=== PATIENT | female | born 1985 | race Caucasian/White ===

== ENCOUNTER 2024-06-05 17:17 | Inpatient (IN) ==
[2024-06-05] MEDS ORDERED: ONDANSETRON INJ 2 MG/ML 2 ML VIAL IV PRN (17:22)
[2024-06-05] MEDS ORDERED: ALUMINUM/MAGNESIUM SUSP 30 ML UDC PO PRN (17:22)
--- NOTE | 2024-06-05 17:36 | History & Physical Report ---
Date of Service June 05, 2024 Assessment & Plan (1) Ascites: Plan 38-year-old female admitted due to profound anemia and concern for cirrhosis with unexplained nodular changes in her peritoneum seen on CT scan and ascites. Recent endoscopy in December 2023 did not show esophageal varices but CT scan of the abdomen talks about abdominal varices and portal hypertension. With concern for vomiting blood most recently #Anemia concern for acute blood loss anemia from portal hypertension and possibly is variceal bleeding. Patient will be brought into our facility put on clear liquids kept n.p.o. after midnight placed on Protonix with a GI consult pending. Most recently her B12 and folic acid levels have been replete but her iron has been low. She received 2 units of leukocyte reduced irradiated blood in the medical treatment unit prior to admission posttransfusion hemoglobin has not been assessed. Patient is not kept n.p.o. for the possibility of an upper endoscopy but patient may need prep for lower #Hepatomegaly concern for ascites. Patient has a significant history of alcohol abuse. Previous workup has included negative hepatitis screening negative copper screening. With the changes on CT scan from May 24 there may be consideration for interventional radiology pursuant of ascitic fluid for analysis for malignancy, will check a CEA, we will check an ammonia. With the abnormal CT scan changes described as thickening and nodularity of the peritoneal reflections once GI is assessed the stability of her bleeding we will consider interventional radiology for diagnostic and therapeutic paracentesis #Alcohol abuse patient will be on at risk LV S scale at this time Admission and Anticipated Discharge Date Admission Date: June 05, 2024 History of Present Illness Primary Care Provider: Lucía Yin PA-C 38-year-old female requested to be a direct admission from hematology clinic when she was discovered to have a hemoglobin of 6.2. Patient had 2 units of leukocyte reduced irradiated blood as she was initially referred for pancytopenia. Patient was requested admission due to abnormality seen on CT scan including hepatosplenomegaly, changes consistent with portal hypertension, and abdominal pelvic ascites. There is thickening and nodularity of the peritoneal reflections which could include differential diagnosis of bacterial peritonitis or carcinomatosis. Patient had an endoscopy and colonoscopy in December 2023. The results of that were 4 polyps removed and subject stricture which dilated and gastritis. However since that time the patient states she has been having rectal bleeding at times not even associated with bowel movements despite this she is not had any close follow-up for that. The patient typically receives her health care at [facility] and has been seeing them for about 1 years time where she has been battling alcohol abuse and tobacco abuse. She presented with issues with peripheral edema significant B12 deficiency and was counseled to stop drinking alcohol. Allergies Allergy/AdvReac Type Severity Reaction Status Date / Time No Known Allergies Allergy Verified 06/05/24 12:05 Home Medications Medication Instructions Recorded Confirmed Type cyanocobalamin (vitamin B-12) 1,000 mcg IM MONTHLY 12/12/23 06/05/24 History 1,000 mcg/mL injection kit docosahexaenoic acid 200 mg 200 mg PO UD 12/12/23 06/05/24 History capsule ( DHA) duloxetine 40 mg capsule,delayed 40 mg PO QAM 12/12/23 06/05/24 History release niacin 250 mg tablet 250 mg PO DAILY 12/12/23 06/05/24 History pantoprazole 40 mg tablet,delayed 40 mg PO HS 05/29/24 06/05/24 History release (Protonix) furosemide 20 mg tablet (Lasix) 20 mg PO DAILY 06/05/24 06/05/24 History Past Med/Surg History Problem List (Updated 06/05/24 @ 17:30 by Lee Jain MD) Pancytopenia Encounter for pre-operative examination Liver fibrosis Ascites Abnormal weight loss Abdominal pain Abdominal cramping Elevated LFTs Rectal bleeding Medical History (Updated 06/05/24 @ 17:30 by Lee Jain MD) Hx of ascites pt unsure Liver fibrosis pt unsure Rectal bleeding ongoing per pt Surgical History History of esophagogastroduodenoscopy (EGD) 12/2023 Hx of colonoscopy 12/2023 Family History Grandfather (Paternal) Diabetes Denies family history of Crohn's disease Colorectal cancer Ulcerative colitis Social History Smoking Status: Current some day smoker Tobacco Type: Cigarettes packs per day: 0.25; Cigarettes Per Day: very random; Second Hand Exposure: No; Do You Dip or Chew Tobacco: No; Hx Alcohol Use: Yes Hx Substance Use: No Preferred Language: Turkish Communication Ability: Effective [employer] Report Developer Required: No Beliefs That Will Affect Care: None Current Living Situation: Significant Other Feels Safe at Home: Yes Assistive Devices: Contacts Review of Systems Review of Systems: Mild distress and fatigue patient Patient is spacey at times and asked to have things repeated. 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 no headache, no visual changes no speech or swallowing issues no chest pain, pressure or palpitations no shortness of breath, cough or wheezes Patient states her abdomen is so swollen she cannot bend down to put on her socks no dysuria, hematuria or frequency le swelling no back pain, CVA tenderness or radicular pain no bruising, bleeding or rashes no focal signs of weakness or numbness or altered sensation no complaints of anxiety or depression.. Physical Exam Physical Exam: The patient appeared well nourished and normally developed. Vital signs as documented. Head exam is normocephalic atraumatic Neck is without JVD, thyromegaly, or carotid bruits. Lungs are clear to auscultation, no focal loss of breath sounds Cardiac exam, Rhythm is regular.. No murmurs, rubs or gallops. Patient has marked abdominal distention, dullness consistent with ascites unable to palpate large liver as document on CT scan due to the abdominal distention 1-2+ lower extremity edema bilaterally w ith skin changes of chronic venous stasis Neurologic exam is alert and oriented, no focal loss of strength or sensation Skin is without bruises or rashes Psychologically is without concerns for anxiety or depression.. Results & Data Results & Data Laboratory Results Reviewed CBC, iron panel, B12 which is over replete, LFTs from 1 day prior previous colonoscopy reports from December and CT scan report on presentation. Additional serologies include negative hepatitis screen negative ceruloplasmin negative TSH positive anti-smooth muscle antibody Code Status & VTE Plan VTE Prophylaxis Plan VTE Prophylaxis will be ordered: Yes PG Care Time/CCT Total # of Minutes Spent Total Time Spent with Patient: Total time spent is greater than 50% in coordination of care (as documented) at patient's floor/unit and/or counseling patient: Coding Level of Care Code 44004 INT INP/OBS CARE 3/75MIN Diagnoses Ascites R18.8
[2024-06-05] MEDS ORDERED: LORazepam 1 MG TAB PO PRN (17:59)
[2024-06-05] MEDS ORDERED: LORazepam 2 MG/1 ML VIAL IV PRN (17:59)
[2024-06-05] MEDS: PANTOprazole 80 MG in DEXTROSE 5% 100 ML IV ONE (18:45)
[2024-06-05 19:16] LABS: Albumin Level 2.7 gm/dl (3.4-5.0); Anion Gap 5 (3-11); Calcium 7.9 mg/dl (8.6-10.3); Carbon Dioxide 27 mmol/L (21-32); Chloride 92 mmol/L (98-107); Potassium 3.6 mmol/L (3.5-5.1); Sodium 124 mmol/L (136-145)
[2024-06-05 19:22] LABS: Alanine Aminotransferase 14 U/L (7-52); Albumin Globulin Ratio 0.8 (0.9-2); Alkaline Phosphatase 134 U/L (34-104); Aspartate Aminotransferase 38 U/L (13-39); BUN Creatinine Ratio 6.8 (10-20); Blood Urea Nitrogen 5 mg/dl (6-23); Globulin 3.4 gm/dl (2.5-4.0); Glucose 97 mg/dl (70-99(Fasting)); Total Protein 6.1 gm/dl (6.0-8.3)
[2024-06-05 19:24] LABS: Hematocrit (blood only) 22.7 % (37.0-47.0); Hemoglobin 7.5 g/dl (12.0-16.0); Mean Corpuscular Hemoglobin 29.5 pg (25.0-34.0); Mean Corpuscular Volume 89.4 fL (80.0-100.0); Mean Platelet Volume 10.5 fL (9.4-12.4); Platelet Count 71 K/uL (130-400); RDW Coefficient of Variation 18.3 % (11.5-14.5); RDW Standard Deviation 58.4 fL (36.4-46.3); Red Blood Count 2.54 M/uL (4.20-5.40)
[2024-06-05] MEDS: PANTOprazole 40 MG in DEXTROSE 5% MINI-B 100 ML IV SCH (19:32)
[2024-06-05] MEDS: PANTOPRAZOLE BOLUS/DRIP IV STA (19:32)
[2024-06-05] MEDS: PANTOprazole 40 MG/10 ML SYR IV SCH (20:52)
[2024-06-05 20:55] LABS: INR 1.4 (0.9-1.1); Prothrombin Time 14.6 Seconds (9.0-12.0)
[2024-06-06 07:24] LABS: INR 1.4 (0.9-1.1); Prothrombin Time 14.4 Seconds (9.0-12.0)
[2024-06-06 07:46] LABS: Albumin Level 2.6 gm/dl (3.4-5.0); Bilirubin,Total 9.8 mg/dl (0.2-1.0); Calcium 7.7 mg/dl (8.6-10.3); Potassium 3.5 mmol/L (3.5-5.1)
[2024-06-06 07:52] LABS: Albumin Globulin Ratio 0.8 (0.9-2); BUN Creatinine Ratio 9.6 (10-20); Creatinine Clr Calc Pharmacy 116.8 ml/min; Globulin 3.1 gm/dl (2.5-4.0); Total Protein 5.7 gm/dl (6.0-8.3)
[2024-06-06] MEDS: DULoxetine HCL 20 MG CAP PO SCH (08:36)
[2024-06-06] MEDS: THIAMINE HCL 100 MG TAB PO SCH (08:37)
[2024-06-06] MEDS: THIAMINE HCL 100 MG in SYRINGE 9 ML IV SCH (09:53)
[2024-06-06] MEDS: rifAXIMin 550 MG TABLET PO SCH (11:18)
--- NOTE | 2024-06-06 11:32 | Ultrasound Report ---
US transvaginal CLINICAL HISTORY: r/o ovarian, and endometrial cancer COMPARISON STUDY: CT of 05/24/2024 FINDINGS: There is moderate ascites in the pelvis. Endometrial thickness is 2 mm, less than typical. Uterus measures 6 x 3 x 4 cm. Left ovary measures 2 x 1 x 1 cm. Right ovary measures 1 x 1 x 1 cm. Th e ovaries are smaller than typical, otherwise unremarkable. There is Doppler flow to the ovaries. IMPRESSION: 1. Endometrial thickness is less than typical and the ovaries are smaller than typical. Suggest clini cheo correlation for early menopause or other endocrine syndrome. 2. Moderate ascites. ACT 112: Negative or not required by law. Electronically signed by: Bo Gabriel M.D. 06/06/2024 11:30 AM
--- NOTE | 2024-06-06 12:46 | Hospitalist Progress Note ---
Date of Service June 06, 2024 Assessment & Plan (1) Ascites: Plan: plan for paracentesis with cytology evaluation may need IV albumin if removing more than 8-9 liter (2) Elevated LFTs: Plan: avoid hepatotoxic agent check for anti-smooth muscle antibody she may benefit from liver biopsy and establishment of hepatology INR is elevated, total BR is elevated (3) Rectal bleeding: Plan: she's has colonoscopy in Dec 2023 and recommended repeat colonoscpy in 3 months noted poor pre Plan Patient is a 38-year-old woman with history of alcohol use disorder, colonic polyp, pancytopenia, she was following with hematology, she had colonoscopy in January 10, 2024 On June 05 she was referred by hematology clinic to ED for anemia with H&H of 6.2 status post blood transfusion her CT scan found hepatomegaly splenomegaly, abdominal pelvic ascites and peritoneal thickening Noticed she have endoscopy and colonoscopy in December they found 4 polyps noted Limited bowel prep and recommend repeat colonoscopy in 3 months GI will plan on EGD and colonoscopy tomorrow Anemia Peritoneal thickening Pancytopenia Colonic polyp Esophageal stenosis Gastritis anemia she been having hematochezia, will plan for colonoscopy tomorrow Clear diet low with diet, communicated with GI Status post blood transfusion, Protonix for gastritis Abdominal ascites will plan for paracentesis Pancytopenia she was following with hematology they will plan for bone marrow biopsy if she have ongoing anemia Peritoneal wall thickening ovarian ultrasound to rule out underlying malignancy She have not have her. For 3 to 4-year Esophageal stenosis gastritis EGD done on January 10, 2020 for PPI Admission and Anticipated Discharge Date Admission Date: June 05, 2024 Subjective She stated that she been having hematochezia she have not had. Since clear 4 years ago after her COVID-vaccine I spoke with GI they plan for colonoscopy and EGD tomorrow Given her CT finding of peritoneal thickening we will plan for pelvic ultrasound to rule out ovarian lesion According to the patient history of alcohol for 1 year She is AO x 3 she is not encephalopathic Review of Systems Review of Systems: Cardiovascular: No Chest Pain, No SOB, No PND, No Dyspnea on Exertion, Gastrointestinal: Positive for abdominal distention positive for hematochezia, no nausea no vomiting Genitourinary: Positive for amenorrhea Physical Exam Physical Exam: VITALS: Reviewed. WEIGHT/BMI reviewed. GEN: non-toxic appearing -Head: NC/AT; -Eyes: PERRL, EOMI. non-icterus CV: RRR, no m/r/g. LUNGS: CTAB, no w/r/c. abdomen: distended; soft to touch MSK: Positive for edema EXT: No clubbing, cyanosis, or edema. NEURO no asterixis noted; AAox3 Results & Data Results & Data Vital Signs (Past 12 Hours) Vital Signs Temp Pulse Pulse Resp BP Pulse Ox O2 Del Method 06/06/24 11:43 36.6 C 106 H 18 121/72 98 Room Air 06/06/24 08:00 36.9 C 112 H 18 128/75 96 Room Air 06/06/24 03:00 36.7 C 106 H 17 119/68 95 Room Air 06/06/24 01:25 101 H Laboratory Results Abnormal lab results 06/05/24 06/05/24 06/06/24 Range/Units 18:39 20:32 06:33 RBC 2.54 L (4.20-5.40) M/uL Hgb 7.5 L (12.0-16.0) g/dl Hct 22.7 L (37.0-47.0) % RDW Std Deviation 58.4 H (36.4-46.3) fL RDW Coeff of Jessenia 18.3 H (11.5-14.5) % Plt Count 71 L (130-400) K/uL PT 14.6 H 14.4 H (9.0-12.0) Seconds INR 1.4 H 1.4 H (0.9-1.1) Sodium 124 L 126 L (136-145) mmol/L Chloride 92 L 92 L (98-107) mmol/L BUN 5 L (6-23) mg/dl BUN/Creatinine Ratio 6.8 L 9.6 L (10-20) Calcium 7.9 L 7.7 L (8.6-10.3) mg/dl Total Bilirubin 9.0 H 9.8 H (0.2-1.0) mg/dl Alkaline Phosphatase 134 H 122 H (34-104) U/L Ammonia 80.0 H (18-72) umol/L Total Protein 5.7 L (6.0-8.3) gm/dl Albumin 2.7 L 2.6 L (3.4-5.0) gm/dl Albumin/Globulin Ratio 0.8 L 0.8 L (0.9-2) Carcinoembryonic Ag 5.9 H (0-2.5) ng/ml Diagnostic Findings Transvaginal US 06/06/24 09:46 US transvaginal CLINICAL HISTORY: r/o ovarian, and endometrial cancer COMPARISON STUDY: CT of 05/24/2024 FINDINGS: There is moderate ascites in the pelvis. Endometrial thickness is 2 mm, less than typical. Uterus measures 6 x 3 x 4 cm. Left ovary measures 2 x 1 x 1 cm. Right ovary measures 1 x 1 x 1 cm. The ovaries are smaller than typical, otherwise unremarkable. There is Doppler flow to the ovaries. IMPRESSION: 1. Endometrial thickness is less than typical and the ovaries are smaller than typical. Suggest clinical correlation for early menopause or other endocrine syndrome. 2. Moderate ascites. ACT 112: Negative or not required by law. Electronically signed by: Bo Gabriel M.D. 06/06/2024 11:30 AM Medications Administered Current Inpatient Medications Al Hydrox/Mg Hydrox/Simethicone (Aluminum/Magnesium Susp 30 Ml Udc) 15 ml PO Q4H PRN PRN Reason: Dyspepsia Stop: 07/05/24 17:21 Duloxetine HCl (Duloxetine Hcl 20 Mg Cap) 40 mg PO QAM ABISAI Stop: 07/06/24 08:59 Last Admin: 06/06/24 08:36 Dose: 40 mg Furosemide (Furosemide 20 Mg Tab) 20 mg PO DAILY ABISAI Stop: 07/07/24 08:59 Pantoprazole Sodium (Protonix) 40 mg in 10 mls @ 5 mls/min IV BID ABISAI Stop: 07/05/24 20:59 Last Admin: 06/06/24 08:35 Dose: 5 mls/min Thiamine HCl 100 mg/ Syringe 10 mls @ 2 mls/min IV QAM ABISAI Stop: 07/06/24 08:59 Last Admin: 06/06/24 09:53 Dose: 2 mls/min Lorazepam (Lorazepam 1 Mg Tab) 1 mg PO ONE PRN; Protocol PRN Reason: EtoH Withdrawal AWSS 6,7,8,9,10 Lorazepam (Lorazepam 2 Mg/1 Ml Vial) 1 mg IV ONE PRN; Protocol PRN Reason: EtoH Withdrawal AWSS 6-10 Ondansetron HCl (Ondansetron Inj 2 Mg/Ml 2 Ml Vial) 4 mg IV Q6H PRN PRN Reason: Nausea Stop: 07/05/24 17:21 Rifaximin (Rifaximin 550 Mg Tablet) 550 mg PO BID [facility] Stop: 07/06/24 08:59 Last Admin: 06/06/24 11:18 Dose: 550 mg Thiamine HCl (Thiamine Hcl 100 Mg Tab) 100 mg PO QAM [facility] Stop: 07/06/24 08:59 Last Admin: 06/06/24 08:37 Dose: 100 mg PG Care Time/CCT Total # of Minutes Spent Total Time Spent with Patient: Total time spent is greater than 50% in coordination of care (as documented) at patient's floor/unit and/or counseling patient: Coding Level of Care Code 37493 SUB INP/OBS CARE 3/50MIN Diagnoses Ascites R18.8 Elevated LFTs R79.89 Rectal bleeding K62.5 Time Spent (min) 35
--- NOTE | 2024-06-06 13:47 | Gastrointestinal Consultation ---
Date of Consultation June 06, 2024 Assessment & Plan (1) Cirrhosis: (2) Ascites: (3) Rectal bleeding: Plan -Paracentesis with fluid studies -Colonoscopy tomorrow -Trend MELD scores daily -Will need hepatology care upon discharge -Further recommendations pending these results Supervising Physician Co-Signing Physician Notes I examined the patient and reviewed patient's chart , laboratory data and im aging studies. I agree with with assessment and plan of care as suggested by advanced practice provider. Alcoholic cirrhosis. Recent onset of ascites. Rectal bleeding. Colonoscopy several months ago with poor prep. Worsening of anemia. Anemia is likely multifactorial. The patient is scheduled for paracentesis today. Colonoscopy tomorrow. History of Present Illness Reason for Consultation: Anemia Attending Physician: Alice Figueroa DO History of Present Illness Patient is a 38 yo female who was directly admitted from the hematologic clinic due to anemia. Hgb upon presentation was 6.2. She notes ongoing hematochezia for many months. She notes that she has had ongoing swelling of the abdomen for quite some time. She reportedly has been diagnosed with cirrhosis felt to be due to alcohol use. She notes an upcoming appointment is being arranged with hepatology [facility]. She had an EGD in 12/2023 without findings of bleeding or varices. She did have an esophageal stricture for which she takes Protonix 40 mg daily. She had a colonoscopy at the time that indicated large 2+ cm polyps but prep was poor and repeat colonoscopy was advised. Since admission, her current H/H is 7.5/22.7. She notes ongoing hematochezia. CT scan findings included hepatosplenomegaly, changes consistent with portal hypertension, and abdominal pelvic ascites. There is thickening and nodularity of the peritoneal reflections which could include differential diagnosis of bacterial peritonitis or carcinomatosis. She has been working with her primary care provider regarding alcohol cessation. MELD 27. Allergies Allergy/AdvReac Type Severity Reaction Status Date / Time No Known Allergies Allergy Verified 06/05/24 12:05 Home Medications Medication Instructions Recorded Confirmed Type cyanocobalamin (vitamin B-12) 1,000 mcg IM MONTHLY 12/12/23 06/05/24 History 1,000 mcg/mL injection kit docosahexaenoic acid 200 mg 200 mg PO UD 12/12/23 06/05/24 History capsule ( DHA) duloxetine 40 mg capsule,delayed 40 mg PO QAM 12/12/23 06/05/24 History release niacin 250 mg tablet 250 mg PO DAILY 12/12/23 06/05/24 History pantoprazole 40 mg tablet,delayed 40 mg PO HS 05/29/24 06/05/24 History release (Protonix) furosemide 20 mg tablet (Lasix) 20 mg PO DAILY 06/05/24 06/05/24 History Patient History Medical History Hx of ascites pt unsure Liver fibrosis pt unsure Rectal bleeding ongoing per pt Surgical History Hx of colonoscopy 12/2023 History of esophagogastroduodenoscopy (EGD) 12/2023 Family History Grandfather (Paternal) Diabetes Denies family history of Crohn's disease Colorectal cancer Ulcerative colitis Social History Smoking Status: Light tobacco smoker Tobacco Type: Cigarettes packs per day: 0.25; Cigarettes Per Day: 2; Second Hand Exposure: No; Do You Dip or Chew Tobacco: No; Tobacco Cessation Education Requested by Patient: No Hx Alcohol Use: Yes Alcohol type: other Hx Substance Use: No Preferred Language: Japanese Communication Ability: Effective [place]ombstone Polisher Required: No Beliefs That Will Affect Care: None Current Living Situation: Spouse Other Information That Helps Us Care for You: No Feels Safe at Home: Yes Safety Concerns: Feels Safe At This Time Assistive Devices: None Review of Systems Constitutional: no fever and no chills Gastrointestinal: + abdominal pain, + bloating and + blood in stools Psychiatric: no problem reported Physical Exam Constitutional: well developed Respiratory: normal respiratory effort Gastrointestinal (Abdomen): Inspection/Auscultation: + abdomen distended ascitic Results & Data Vital Signs (Past 12 Hours) Vital Signs Temp Pulse Resp BP Pulse Ox O2 Del Method 06/06/24 11:43 36.6 C 106 H 18 121/72 98 Room Air 06/06/24 08:00 36.9 C 112 H 18 128/75 96 Room Air 06/06/24 03:00 36.7 C 106 H 17 119/68 95 Room Air PG Care Time/CCT Total # of Minutes Spent Total Time Spent with Patient: Total time spent is greater than 50% in coordination of care (as documented) at patient's floor/unit and/or counseling patient: Coding Level of Care Code 67704 INT INP/OBS CARE 3/75MIN Diagnoses Cirrhosis K74.60 Ascites R18.8 Rectal bleeding K62.5
--- NOTE | 2024-06-06 15:08 | Ultrasound Report ---
ULTRASOUND GUIDED PARACENTESIS CLINICAL HISTORY: ascites COMPARISON STUDY: None PROCEDURE: The risks, benefits, and alternatives to the procedure were discussed with the patient inc luding the risk of bleeding, infection and injury to adjacent structures. The patient agreed to the procedure and informed written consent was obtained. Following real-time ultrasound localization, the skin was prepped and draped. Following local anesthesia with Xylocaine, the sheath paracentesis need le was inserted and approximately 6 liters of straw-colored fluid was removed by vacuum suction. The patient tolerated the procedure well and no immediate complications were evident. IMPRESSION: Ultrasound-guided paracentesis with removal of 6 liters of ascites. ACT 112: Negative or not required by law. Electronically signed by: Bo Gabriel M.D. 06/06/2024 3:07 PM
[2024-06-06 15:33] LABS: Appearance Peritoneal Fluid Clear; Color Peritoneal Fluid Yellow; RBC Peritoneal Fluid Auto < 2000 /uL
[2024-06-06 15:54] LABS: Albumin Peritoneal Fluid < 1.5 gm/dl; Total Protein Peritoneal Fluid < 3.0 gm/dl
[2024-06-06] MEDS: LAVAGE SOLUTION 4000ML PO SCH (17:12)
[2024-06-07 07:59] LABS: Lymphocytes, Fluid 36 %; Mono,Macrophage,Mesothelial 45 %; Neutrophils, Fluid 19 %; WBC Peritoneal Fluid Auto 64 /ul (0-300)
[2024-06-07 08:04] LABS: Hematocrit (blood only) 21.9 % (37.0-47.0); Hemoglobin 7.3 g/dl (12.0-16.0); Mean Corpuscular Hemoglobin 29.7 pg (25.0-34.0); Mean Corpuscular Hgb Conc 33.3 g/dL (32.0-36.0); Mean Platelet Volume 10.5 fL (9.4-12.4); Platelet Count 68 K/uL (130-400); RDW Coefficient of Variation 18.9 % (11.5-14.5); RDW Standard Deviation 61.2 fL (36.4-46.3); Red Blood Count 2.46 M/uL (4.20-5.40); White Blood Count 5.22 K/ul (4.8-10.8)
[2024-06-07 08:17] LABS: Albumin Globulin Ratio 0.8 (0.9-2); Albumin Level 2.6 gm/dl (3.4-5.0); BUN Creatinine Ratio 9.2 (10-20); Bilirubin,Total 6.8 mg/dl (0.2-1.0); Calcium 7.7 mg/dl (8.6-10.3); Creatinine Clr Calc Pharmacy 131.2 ml/min; Globulin 3.2 gm/dl (2.5-4.0); Potassium 3.1 mmol/L (3.5-5.1); Total Protein 5.8 gm/dl (6.0-8.3)
--- NOTE | 2024-06-07 09:03 | Anesthesiology Consultation ---
Date of Service June 07, 2024 Assessment & Plan Chart Review Chart Review: Acceptable Risk for Surgery, Patient NOT seen in Pre Admission Testing and medical data entry clerk initiated Consults Requested none Proposed Anesthesia Anesthesia Type: MAC History Surgery Operation Date: 06/07/24 16:30 Proposed Procedures p Colonoscopy Dr. Mullins - Julio Mullins MD Height/Weight Height: 5 ft 11 in Weight: 79 kg Allergies Allergy/AdvReac Type Severity Reaction Status Date / Time No Known Allergies Allergy Verified 06/05/24 12:05 Medications Home Medications Medication Instructions Recorded Confirmed Last Taken cyanocobalamin (vitamin B-12) 1,000 mcg IM MONTHLY 12/12/23 06/05/24 05/03/24 1,000 mcg/mL injection kit docosahexaenoic acid 200 mg 200 mg PO UD 12/12/23 06/05/24 06/04/24 11:00 capsule ( DHA) duloxetine 40 mg capsule,delayed 40 mg PO QAM 12/12/23 06/05/24 06/04/24 11:00 release niacin 250 mg tablet 250 mg PO DAILY 12/12/23 06/05/24 06/04/24 11:00 pantoprazole 40 mg tablet,delayed 40 mg PO HS 05/29/24 06/05/24 06/04/24 11:00 release (Protonix) furosemide 20 mg tablet (Lasix) 20 mg PO DAILY 06/05/24 06/05/24 06/04/24 11:00 Active Medications Generic Name Dose Route Start Last Admin Trade Name Freq PRN Reason Stop Dose Admin Duloxetine HCl 40 mg 06/06/24 09:00 06/06/24 08:36 Duloxetine Hcl 20 Mg Cap PO 07/06/24 08:59 40 mg QAM ABISAI Administration Pantoprazole Sodium 40 mg in 10 mls @ 5 mls/min 06/05/24 21:00 06/06/24 21:08 Protonix IV 07/05/24 20:59 5 mls/min BID ABISAI Administration Thiamine HCl 100 mg/ Syringe 10 mls @ 2 mls/min 06/06/24 09:00 06/06/24 09:53 IV 07/06/24 08:59 2 mls/min QAM ABISAI Administration Rifaximin 550 mg 06/06/24 09:00 06/06/24 21:08 Rifaximin 550 Mg Tablet PO 07/06/24 08:59 550 mg BID ABISAI Administration Thiamine HCl 100 mg 06/06/24 09:00 06/06/24 08:37 Thiamine Hcl 100 Mg Tab PO 07/06/24 08:59 100 mg QAM ABISAI Administration Past Medical History Medical History Hx of ascites pt unsure Liver fibrosis pt unsure Rectal bleeding ongoing per pt Past Family History Family History Grandfather (Paternal) Diabetes Denies family history of Crohn's disease Colorectal cancer Ulcerative colitis Past Surgical History Surgical History Hx of colonoscopy 12/2023 History of esophagogastroduodenoscopy (EGD) 12/2023 Social History Smoking Status: Light tobacco smoker Smoking cigarettes per day: 2 Do You Dip or Chew Tobacco: No Hx Alcohol Use: Yes Alcohol type: other alcohol intake frequency: a few times a month Hx Substance Use: No substance use type: does not use Physical Exam Vital Signs Last Vital Signs Temp 36.4 C L 06/07/24 07:45 Pulse 88 06/07/24 07:45 Resp 18 06/07/24 07:45 BP 118/75 06/07/24 07:45 Pulse Ox 99 06/07/24 07:45 O2 Del Method Room Air 06/07/24 07:45 Testing Laboratory Results 06/07/24 07:37 06/07/24 07:37 PT 14.4 Seconds (9.0-12.0) H 06/06/24 06:33 INR 1.4 (0.9-1.1) H 06/06/24 06:33 06/06/24 Unknown Gram Stain - Final Peritoneal Fluid Electrocardiogram Date: 06/05/24 Findings: + NSR @ (99) prolonged QT interval No prev EKG for comparison.
--- NOTE | 2024-06-07 09:33 | History & Physical Bridge Note ---
Date of Service June 07, 2024 History & Physical Bridge Note I have examined the patient, reviewed the History & Physical and in the interval since the performance of the History & Physical I have noted the following changes of clinical significance: no changes noted Patient underwent paracentesis yesterday with removal of 6L of fluid. She did the majority of her bowel prep and is having liquid red stools without stool. Keep NPO & proceed with colonoscopy today. Supervising Physician Co-Signing Physician Notes I examined the patient and reviewed patient's chart , laboratory data and imaging studies. I agree with with assessment and plan of care as suggested by advanced practice provider.
[2024-06-07] MEDS: cefTRIAXone SODIUM 2,000 MG/50 ML BAG IV SCH (10:21)
[2024-06-07] MEDS: FUROSEMIDE 20 MG TAB PO SCH (10:51)
[2024-06-07] MEDS ORDERED: PROPOFOL IV EMULSION 10 MG/ML 20 ML VIAL IV ONE ×3 (13:22→13:51)
[2024-06-07] MEDS ORDERED: LIDOCAINE 2% 2 ML VIAL/AMP(20MG/ML) INFIL ONE (13:22)
--- NOTE | 2024-06-07 14:23 | GI REPORT ---
[facility] Patient: LUCAS DOSS : 1985 Sex at : Female Age: 38 Years Procedure: Colonoscopy Date: 06/07/2024 Attending Physician: Julio Mullins MD Referring MD: Cierra Guthrie MD; Alice Figueroa DO; Lucía Curiel Pa-c Indications: - Rectal bleeding - Iron deficiency anemia Medications: - Monitored Anesthesia Care Complications: - No immediate complications. Estimated Blood Loss: - Estimated blood loss: None. Procedure: - The pediatric colonoscope was introduced through the anus and advanced to the cecum, identified by appendiceal orifice and ileocecal valve. - The colonoscopy was somewhat difficult due to significant looping. Successful completion of the procedure was aided by applying abdominal pressure. Findings: - The perianal exam: perianal open wound, small fistula vs. recently drained perianal abscess. - Two semi-pedunculated polyps were found in the descending colon and sigmoid colon. The polyps were 15 to 20 mm in size. These polyps were removed with a hot snare. Resection was complete, and retrieval was complete. - Internal non-bleeding hemorrhoids were found during retroflexion. The hemorrhoids were large. - The exam was otherwise without abnormality. Impression: - Abnormal perianal exam. - Two 15 to 20 mm polyps in the descending colon and in the sigmoid colon, removed with a hot snare. Resected and retrieved. - Internal non-bleeding hemorrhoids. - The examination was otherwise normal. Recommendation: - Colorectal surgery consultation - Await pathology results. - Repeat colonoscopy in 3 years for surveillance based on pathology results. Procedure Code(s): - 24312, Colonoscopy, flexible; with removal of tumor(s), polyp(s), or other lesion(s) by snare technique Diagnosis Code(s): - K62.5, Hemorrhage of anus and rectum - D50.9, Iron deficiency anemia, unspecified - D12.4, Benign neoplasm of descending colon - D12.5, Benign neoplasm of sigmoid colon - K64.8, Other hemorrhoids CPT(R) - 2023 copyright [employer]. All Rights Reserved. The CPT codes, CCI edits and ICD codes generated are intended as suggestions and were generated based on input data. These codes are preliminary and upon surgical coder review may be revised to meet current compliance and payer requirements. The provider is responsible for the final determination of appropriate codes, and modifiers. Julio Mullins M.D., MD This document has been electronically signed. Note Initiated:06/07/2024 Note Completed:06/07/2024 2:22 PM [id number]
--- NOTE | 2024-06-07 14:24 | Hospitalist Progress Note ---
Date of Service June 07, 2024 Assessment & Plan (1) Ascites: Plan: plan for paracentesis with cytology evaluation may need IV albumin if removing more than 8-9 liter (2) Elevated LFTs: Plan: avoid hepatotoxic agent check for anti-smooth muscle antibody she may benefit from liver biopsy and establishment of hepatology INR is elevated, total BR is elevated (3) Rectal bleeding: Plan: she's has colonoscopy in Dec 2023 and recommended repeat colonoscpy in 3 months noted poor pre Plan Patient is a 38-year-old woman with history of alcohol use disorder, colonic polyp, pancytopenia, she was following with hematology, she had colonoscopy in January 10, 2024 On June 05 she was referred by hematology clinic to ED for anemia with H&H of 6.2 status post blood transfusion her CT scan found hepatomegaly splenomegaly, abdominal pelvic ascites and peritoneal thickening Noticed she have endoscopy and colonoscopy in December they found 4 polyps noted Limited bowel prep and recommend repeat colonoscopy in 3 months GI will plan on EGD and colonoscopy tomorrow Anemia Peritoneal thickening Pancytopenia Colonic polyp Esophageal stenosis Gastritis overall plan colonoscopy today ceftriaxone empirically for SBP monitoir for resolution of hypothermia RUQ tomorrow for protal vein thrombosis her aunt and uncle was updated discussed she's need to stop drinking (no beer, no jarrod) anemia she been having hematochezia, will plan for colonoscopy on 06/07 4pm protonix discussed she need bone marrow biopsy Abdominal ascites s/p paracentesis on 6 liter ceftriaxone empiric till ascites fluid return Pancytopenia she was following with hematology they will plan for bone marrow biopsy if she have ongoing anemia Peritoneal wall thickening ovarian ultrasound negative no period For 3 to 4-year Esophageal stenosis gastritis EGD done on January 10, 2020 for PPI Admission and Anticipated Discharge Date Admission Date: June 05, 2024 Subjective She have ongoing hematochezia with bowel prep plan for colonoscopy 3 PM to 4 PM today Status post paracentesis yesterday but still have significant distention She is AO x 3 Her ovarian ultrasound is negative I will plan for right upper quadrant ultrasound with duplex yesterday To rule out portal vein thrombosis Review of Systems Review of Systems: Constitutional: No Weight Change, No Fever, No Chills, No Night Sweats, No Fatigue, No Malaise ENT/Mouth: No Hearing Changes, No Ear Pain, No Nasal Congestion, No Sinus Pain, No Hoarseness, No sore throat, No Rhinorrhea, No Swallowing Difficulty Eyes: No Eye Pain, No Swelling, No Redness, No Foreign Body, No Discharge, No Vision Changes Cardiovascular: No Chest Pain, No SOB, No PND, No Dyspnea on Exertion, No Orthopnea, No Claudication, No Edema, No Palpitations Respiratory: No Cough, No Sputum, No Wheezing, No Smoke Exposure, No Dyspnea Gastrointestinal: Distention improved positive for ongoing hematochezia no nausea no vomiting Genitourinary: Positive for amenorrhea Neuro: No Weakness, No Numbness, No Paresthesias, Psych: No Anxiety/Panic, No Depression, No Insomnia, No Personality Changes, No Delusions, No Rumination, No SI/HI/AH/VH, No Social Issues, No Memory Changes, No Violence/Abuse Hx., No Eating Concerns Heme/Lymph: No Bruising, No Bleeding, No Transfusions History, No Lymphadenopathy Physical Exam Physical Exam: VITALS: Reviewed. WEIGHT/BMI reviewed. GEN: Healthy appearing, well-developed, NAD. -Head: NC/AT; -Mouth and throat: MMM. Normal gums, muc sandra, palate,. Good dentition. NECK: Supple, with no masses. CV: RRR, no m/r/g. LUNGS: CTAB, no w/r/c. ABD: distended abdomen; + for ascites; no bruising; non-tender to palpation : N/A MSK: No deformities, Normal gait. EXT: No clubbing, cyanosis, or edema. NEURO: AAox3 Results & Data Results & Data Vital Signs (Past 12 Hours) Vital Signs Temp Pulse Pulse Resp BP Pulse Ox O2 Del Method 06/07/24 12:06 36.9 C 102 H 16 134/78 98 Room Air 06/07/24 11:22 36.8 C 102 H 18 114/71 99 Room Air 06/07/24 09:00 101 H 06/07/24 07:45 36.4 C L 88 18 118/75 99 Room Air 06/07/24 04:36 36.7 C 99 H 18 104/60 96 Room Air Laboratory Results Abnormal lab results 06/07/24 Range/Units 07:37 RBC 2.46 L (4.20-5.40) M/uL Hgb 7.3 L (12.0-16.0) g/dl Hct 21.9 L (37.0-47.0) % RDW Std Deviation 61.2 H (36.4-46.3) fL RDW Coeff of Jessenia 18.9 H (11.5-14.5) % Plt Count 68 L (130-400) K/uL Sodium 125 L (136-145) mmol/L Potassium 3.1 L (3.5-5.1) mmol/L Chloride 89 L (98-107) mmol/L BUN/Creatinine Ratio 9.2 L (10-20) Calcium 7.7 L (8.6-10.3) mg/dl Total Bilirubin 6.8 H (0.2-1.0) mg/dl Alkaline Phosphatase 116 H (34-104) U/L Total Protein 5.8 L (6.0-8.3) gm/dl Albumin 2.6 L (3.4-5.0) gm/dl Albumin/Globulin Ratio 0.8 L (0.9-2) Diagnostic Findings Transvaginal US 06/06/24 09:46 US transvaginal CLINICAL HISTORY: r/o ovarian, and endometrial cancer COMPARISON STUDY: CT of 05/24/2024 FINDINGS: There is moderate ascites in the pelvis. Endometrial thickness is 2 mm, less than typical. Uterus measures 6 x 3 x 4 cm. Left ovary measures 2 x 1 x 1 cm. Right ovary measures 1 x 1 x 1 cm. The ovaries are smaller than typical, otherwise unremarkable. There is Doppler flow to the ovaries. IMPRESSION: 1. Endometrial thickness is less than typical and the ovaries are smaller than typical. Suggest clinical correlation for early menopause or other endocrine syndrome. 2. Moderate ascites. ACT 112: Negative or not required by law. Electronically signed by: Bo Gabriel M.D. 06/06/2024 11:30 AM Paracentesis Ultrasound 06/06/24 12:54 ULTRASOUND GUIDED PARACENTESIS CLINICAL HISTORY: ascites COMPARISON STUDY: None PROCEDURE: The risks, benefits, and alternatives to the procedure were discussed with the patient including the risk of bleeding, infection and injury to adjacent structures. The patient agreed to the procedure and informed written consent was obtained. Following real-time ultrasound localization, the skin was prepped and draped. Following local anesthesia with Xylocaine, the sheath paracentesis needle was inserted and approximately 6 liters of straw-colored fluid was removed by vacuum suction. The patient tolerated the procedure well and no immediate complications were evident. IMPRESSION: Ultrasound-guided paracentesis with removal of 6 liters of ascites. ACT 112: Negative or not required by law. Electronically signed by: Bo Gabriel M.D. 06/06/2024 3:07 PM Medications Administered Current Inpatient Medications Al Hydrox/Mg Hydrox/Simethicone (Aluminum/Magnesium Susp 30 Ml Udc) 15 ml PO Q4H PRN PRN Reason: Dyspepsia Stop: 07/05/24 17:21 Duloxetine HCl (Duloxetine Hcl 20 Mg Cap) 40 mg PO QAM ABISAI Stop: 07/06/24 08:59 Last Admin: 06/07/24 08:37 Dose: 40 mg Furosemide (Furosemide 20 Mg Tab) 20 mg PO DAILY ABISAI Stop: 07/07/24 08:59 Last Admin: 06/07/24 10:51 Dose: 20 mg Pantoprazole Sodium (Protonix) 40 mg in 10 mls @ 5 mls/min IV BID ABISAI Stop: 07/05/24 20:59 Last Admin: 06/07/24 08:35 Dose: 5 mls/min Thiamine HCl 100 mg/ Syringe 10 mls @ 2 mls/min IV QAM ABISAI Stop: 07/06/24 08:59 Last Admin: 06/07/24 08:36 Dose: 2 mls/min Ceftriaxone Sodium (Rocephin) 2,000 mg in 50 mls @ 100 mls/hr IV Q24H ABISAI Stop: 06/17/24 08:14 Last Infusion: 06/07/24 11:03 Dose: Infused Lorazepam (Lorazepam 1 Mg Tab) 1 mg PO ONE PRN; Protocol PRN Reason: EtoH Withdrawal AWSS 6,7,8,9,10 Lorazepam (Lorazepam 2 Mg/1 Ml Vial) 1 mg IV ONE PRN; Protocol PRN Reason: EtoH Withdrawal AWSS 6-10 Ondansetron HCl (Ondansetron Inj 2 Mg/Ml 2 Ml Vial) 4 mg IV Q6H PRN PRN Reason: Nausea Stop: 07/05/24 17:21 Rifaximin (Rifaximin 550 Mg Tablet) 550 mg PO BID ABISAI Stop: 07/06/24 08:59 Last Admin: 06/07/24 08:36 Dose: 550 mg Thiamine HCl (Thiamine Hcl 100 Mg Tab) 100 mg PO QAM ABISAI Stop: 07/06/24 08:59 Last Admin: 06/06/24 08:37 Dose: 100 mg PG Care Time/CCT Total # of Minutes Spent Total Time Spent with Patient: Total time spent is greater than 50% in coordination of care (as documented) at patient's floor/unit and/or counseling patient: Coding Level of Care Code 30942 SUB INP/OBS CARE 03/16MIN Diagnoses Ascites R18.8 Elevated LFTs R79.89 Rectal bleeding K62.5 Time Spent (min) 16
--- NOTE | 2024-06-07 14:26 | Communication Note ---
Date of Service: June 07, 2024 Colonoscopy showed perianal open wound, possibly perianal fistula or recently drained perianal abscess. She had large internal hemorrhoids, likely source of bleeding. There were 2 large colonic polyps, 15 mm and 20 mm in size removed with hot snare polypectomy. Recommendations: Colorectal surgery consultation for hemorrhoids and perianal wound. Will ask GI office to arrange this as an outpatient. Advance diet. Outpatient follow-up.
--- NOTE | 2024-06-07 14:47 | Anesthesiology Progress Note ---
Date of Service June 07, 2024 Anesthesia Post Procedure Vital Signs Vital Signs: Temp Pulse Pulse Resp BP Pulse Ox O2 Del Method 06/07/24 14:28 98 H 20 113/68 99 Room Air 06/07/24 14:13 99 H 18 114/61 99 Room Air 06/07/24 12:06 36.9 C 102 H 16 134/78 98 Room Air 06/07/24 11:22 36.8 C 102 H 18 114/71 99 Room Air 06/07/24 09:00 101 H 06/07/24 07:45 36.4 C L 88 18 118/75 99 Room Air 06/07/24 04:36 36.7 C 99 H 18 104/60 96 Room Air 06/06/24 23:39 36.8 C 100 H 18 114/67 98 Room Air 06/06/24 21:51 99 H 06/06/24 19:53 36.7 C 100 H 22 106/61 97 Room Air 06/06/24 16:00 36.9 C 101 H 18 118/61 98 Room Air Transfer of Care Handoff Completed per policy Notes Mental Status: alert / awake / arousable and participated in evaluation Patient Amnestic to Procedure: Yes Nausea / Vomiting: adequately controlled Pain: adequately controlled Airway Patency, RR, SpO2: stable & adequate BP & HR: stable & adequate Hydration State: stable & adequate Anesthetic Complications: no major complications apparent
[2024-06-07] MEDS: POTASSIUM CHLORIDE 20 MEQ/15 ML UDC PO STA (15:37)
[2024-06-08 07:48] LABS: Albumin Globulin Ratio 0.8 (0.9-2); Albumin Level 2.3 gm/dl (3.4-5.0); BUN Creatinine Ratio 7.9 (10-20); Calcium 7.3 mg/dl (8.6-10.3); Creatinine Clr Calc Pharmacy 112.2 ml/min; Globulin 2.9 gm/dl (2.5-4.0); Potassium 2.9 mmol/L (3.5-5.1); Total Protein 5.2 gm/dl (6.0-8.3)
[2024-06-08] MEDS: POTASSIUM CHLORIDE CRTAB 20 MEQ TABCR PO STA (09:04)
--- NOTE | 2024-06-08 09:40 | Gastroenterology Progress Note ---
Date of Service June 08, 2024 Assessment & Plan (1) Rectal bleeding: Plan: She asked when her surgery would be for her hemorrhoids. I told her the plans were for it to be done as an outpatient. She is anxious to leave. As long as H/H remain stable she can go from our standpoint Admission and Anticipated Discharge Date Admission Date: June 05, 2024 Subjective Feeling well. Bleeding better but still present. Discussed results of colonoscopy with her. Physical Exam Physical Exam: Jaundiced but otherwise looks well Constitutional: WD/WN, vitals as above Results & Data Vital Signs (Past 12 Hours) Vital Signs Temp Pulse Pulse Resp BP BP Pulse Ox 06/08/24 07:00 36.6 C 102 H 16 116/65 97 06/08/24 03:18 36.7 C 105 H 16 106/54 L 96 06/07/24 22:55 36.8 C 107 H 16 124/62 96 06/07/24 21:49 110 H O2 Del Method 06/08/24 07:00 Room Air 06/08/24 03:18 Room Air 06/07/24 22:55 Room Air 06/07/24 21:49
[2024-06-08] MEDS: IRON SUCROSE 400 MG in SODIUM CHLORIDE 0.9% 250 ML IV ONE (10:27)
[2024-06-08] MEDS: POTASSIUM CHLORIDE 20 MEQ/15 ML UDC PO STA ×2 (12:34→13:53)
--- NOTE | 2024-06-08 13:26 | Hospitalist Progress Note ---
Date of Service June 08, 2024 Assessment & Plan (1) Ascites: Plan: s/p paracentesis on 06/06 with 7-8 liter remove she's need to f/u with IR or GI for interval paracentesis (2) Elevated LFTs: Plan: discussed at length about avoiding alcohol she's need to set up hepatology risk of liver failure, explained discussed high protein diet need interval MELD score monitoring (3) Rectal bleeding: Plan: she's has colonoscopy in Dec 2023 s/p repeat colonoscopy on 06/08/2024, found two polyps also found internal hemorrhoid outpatient f/u with GI docgtor Plan Patient is a 38-year-old woman with history of alcohol use disorder, colonic polyp, pancytopenia, she was following with hematology, she had colonoscopy in January 10, 2024 On June 05 she was referred by hematology clinic to ED for anemia with H&H of 6.2 status post blood transfusion her CT scan found hepatomegaly splenomegaly, abdominal pelvic ascites and peritoneal thickening Noticed she have endoscopy and colonoscopy in December they found 4 polyps noted Limited bowel prep and recommend repeat colonoscopy in 3 months GI will plan on EGD and colonoscopy tomorrow Anemia Peritoneal thickening Pancytopenia Colonic polyp Esophageal stenosis Gastritis overall plan still have soft BP empiric coverage with ceftriaxone for SBP f/u on ascites fluid culture hypokalemia, s/p Kcl 40mg x 2 anemia colonoscopy on 06/07 found internal hemorrhoid and two polyps need repeat colonoscpy in 3 years, that been discused with the patient s/p bone marrow biopsy cirrhosis she was advised at length about quitting drinking she will establish hepatology and has interval MELD score monitoring Abdominal ascites s/p paracentesis (06/06) and removed 6 liter ceftriaxone empiric till ascites fluid return Pancytopenia she was following with hematology they will Peritoneal wall thickening ovarian ultrasound negative no period For 3 to 4-year 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 and Esophageal stenosis gastritis EGD done on January 10, 2020 for PPI Admission and Anticipated Discharge Date Admission Date: June 05, 2024 Subjective She is status post colonoscopy Found polyp in the descending sigmoid colon, found internal hemorrhoids Her blood pressure was soft this morning in the 90 No other distress She still have significant ascites and need paracentesis We discussed that she need to establish hepatology send we discussed that she need to quit drinking Review of Systems Review of Systems: Constitutional: No Weight Change, No Fever, No Chills, No Night Sweats, No Fatigue, No Malaise Cardiovascular: No Chest Pain, No SOB, No PND, No Dyspnea on Exertion, No Orthopnea, No Claudication, No Edema, No Palpitations Respiratory: No Cough, No Sputum, No Wheezing, No Smoke Exposure, No Dyspnea Gastrointestinal: No Nausea, No Vomiting, No Diarrhea, Ongoing abdominal distention, no hematochezia Genitourinary: No Dysmenorrhea, No DUB, No Dyspareunia, No Dysuria, No Urinary Frequency, No Hematuria, No Urinary Incontinence, No Urgency, No Flank Pain, No Urinary Flow Changes, No Hesitancy Musculoskeletal: No Arthralgias, No Myalgias, No Joint Swelling, No Joint Stiffness, No Back Pain, No Neck Pain, No Injury History Neuro: No Weakness, No Numbness, No Paresthesias, No Loss of Consciousness, No Syncope, No Dizziness, No Headache, No Coordination Changes, No Recent Falls Heme/Lymph: No Bruising, No Bleeding, No Transfusions History, No Lymphadenopathy Endocrine: No Polyuria, No Polydipsia, No Temperature Intolerance Physical Exam Physical Exam: VITALS: Reviewed. WEIGHT/BMI reviewed. GEN: Healthy appearing, well-developed, NAD. PSYCH: Good Judgment. AOx3. Normal memory, mood, and affect. HEENT -Head: NC/AT; -Mouth and throat: MMM. Normal gums, muc sandra, palate,. Good dentition. NECK: Supple, with no masses. CV: RRR, no m/r/g. LUNGS: CTAB, no w/r/c. ABD: distended; soft to touch; + for fluid wave; no brusing SKIN: Warm, well perfused. No skin rashes or abnormal lesions. MSK: No deformities, Normal gait. EXT: No clubbing, cyanosis, or edema. NEURO: AAox3; no asterixis Results & Data Results & Data Vital Signs (Past 12 Hours) Vital Signs Temp Pulse Pulse Resp BP BP Pulse Ox 06/08/24 11:38 103 H 06/08/24 11:20 36.6 C 97 H 20 120/63 97 06/08/24 07:00 36.6 C 102 H 16 116/65 97 06/08/24 03:18 36.7 C 105 H 16 106/54 L 96 O2 Del Method 06/08/24 11:38 06/08/24 11:20 Room Air 06/08/24 07:00 Room Air 06/08/24 03:18 Room Air Laboratory Results Laboratory Results - last 72 hr 06/05/24 06/05/24 06/06/24 18:39 20:32 06:33 WBC 5.40 RBC 2.54 L Hgb 7.5 L Hct 22.7 L MCV 89.4 MCH 29.5 MCHC 33.0 RDW Std Deviation 58.4 H RDW Coeff of Jessenia 18.3 H Plt Count 71 L MPV 10.5 PT 14.6 H 14.4 H INR 1.4 H 1.4 H Sodium 124 L 126 L Potassium 3.6 3.5 Chloride 92 L 92 L Carbon Dioxide 27 28 Anion Gap 5 6 BUN 5 L 7 Creatinine 0.74 0.73 Est Cr Clr Drug Dosing Not Reportable 116.8 eGFR 106.14 107.89 BUN/Creatinine Ratio 6.8 L 9.6 L Glucose 97 97 Calcium 7.9 L 7.7 L Total Bilirubin 9.0 H 9.8 H AST 38 35 ALT 14 14 Alkaline Phosphatase 134 H 122 H Ammonia 80.0 H Total Protein 6.1 5.7 L Albumin 2.7 L 2.6 L Globulin 3.4 3.1 Albumin/Globulin Ratio 0.8 L 0.8 L Carcinoembryonic Ag 5.9 H Fluid Neutrophils % Fluid Lymphocytes % Fluid Meso/Macro/Hood % Fluid Comment Peritoneal Color Peritoneal Appearance Peritoneal WBC (Auto) Peritoneal RBC (Auto) Peritoneal Tot Protein Peritoneal Albumin 06/06/24 06/07/24 06/08/24 Unknown 07:37 06:50 WBC 5.22 RBC 2.46 L Hgb 7.3 L Hct 21.9 L MCV 89.0 MCH 29.7 MCHC 33.3 RDW Std Deviation 61.2 H RDW Coeff of Jessenia 18.9 H Plt Count 68 L MPV 10.5 PT INR Sodium 125 L 127 L Potassium 3.1 L 2.9 L Chloride 89 L 93 L Carbon Dioxide 30 29 Anion Gap 6 5 BUN 6 6 Creatinine 0.65 0.76 Est Cr Clr Drug Dosing 131.2 112.2 eGFR 115.50 102.80 BUN/Creatinine Ratio 9.2 L 7.9 L Glucose 86 98 Calcium 7.7 L 7.3 L Total Bilirubin 6.8 H 5.0 H AST 38 32 ALT 14 12 Alkaline Phosphatase 116 H 110 H Ammonia 56.0 Total Protein 5.8 L 5.2 L Albumin 2.6 L 2.3 L Globulin 3.2 2.9 Albumin/Globulin Ratio 0.8 L 0.8 L Carcinoembryonic Ag Fluid Neutrophils % 19 Fluid Lymphocytes % 36 Fluid Meso/Macro/Hood % 45 Fluid Comment Peritoneal Color Yellow Peritoneal Appearance Clear Peritoneal WBC (Auto) 64 Peritoneal RBC (Auto) < 2000 Peritoneal Tot Protein < 3.0 Peritoneal Albumin < 1.5 Diagnostic Findings Paracentesis Ultrasound 06/06/24 12:54 ULTRASOUND GUIDED PARACENTESIS CLINICAL HISTORY: ascites COMPARISON STUDY: None PROCEDURE: The risks, benefits, and alternatives to the procedure were discussed with the patient including the risk of bleeding, infection and injury to adjacent structures. The patient agreed to the procedure and informed written consent was obtained. Following real-time ultrasound localization, the skin was prepped and draped. Following local anesthesia with Xylocaine, the sheath paracentesis needle was inserted and approximately 6 liters of straw-colored fluid was removed by vacuum suction. The patient tolerated the procedure well and no immediate complications were evident. IMPRESSION: Ultrasound-guided paracentesis with removal of 6 liters of ascites. ACT 112: Negative or not required by law. Electronically signed by: Bo Gabriel M.D. 06/06/2024 3:07 PM Medications Administered Current Inpatient Medications Al Hydrox/Mg Hydrox/Simethicone (Aluminum/Magnesium Susp 30 Ml Udc) 15 ml PO Q4H PRN PRN Reason: Dyspepsia Stop: 07/05/24 17:21 Duloxetine HCl (Duloxetine Hcl 20 Mg Cap) 40 mg PO QAM ABISAI Stop: 07/06/24 08:59 Last Admin: 06/08/24 08:57 Dose: 40 mg Furosemide (Furosemide 20 Mg Tab) 20 mg PO DAILY ABISAI Stop: 07/07/24 08:59 Last Admin: 06/08/24 08:58 Dose: 20 mg Pantoprazole Sodium (Protonix) 40 mg in 10 mls @ 5 mls/min IV BID ABISAI Stop: 07/05/24 20:59 Last Admin: 06/08/24 10:20 Dose: 5 mls/min Thiamine HCl 100 mg/ Syringe 10 mls @ 2 mls/min IV QAM ABISAI Stop: 07/06/24 08:59 Last Admin: 06/08/24 10:16 Dose: 2 mls/min Ceftriaxone Sodium (Rocephin) 2,000 mg in 50 mls @ 100 mls/hr IV Q24H ABISAI Stop: 06/17/24 08:14 Last Infusion: 06/08/24 10:38 Dose: Infused Lorazepam (Lorazepam 1 Mg Tab) 1 mg PO ONE PRN; Protocol PRN Reason: EtoH Withdrawal AWSS 6,7,8,9,10 Lorazepam (Lorazepam 2 Mg/1 Ml Vial) 1 mg IV ONE PRN; Protocol PRN Reason: EtoH Withdrawal AWSS 6-10 Ondansetron HCl (Ondansetron Inj 2 Mg/Ml 2 Ml Vial) 4 mg IV Q6H PRN PRN Reason: Nausea Stop: 07/05/24 17:21 Potassium Chloride (Potassium Chloride 20 Meq/15 Ml Udc) 40 meq PO NOW STA Stop: 06/08/24 13:18 Rifaximin (Rifaximin 550 Mg Tablet) 550 mg PO BID ABISAI Stop: 07/06/24 08:59 Last Admin: 06/08/24 08:57 Dose: 550 mg Thiamine HCl (Thiamine Hcl 100 Mg Tab) 100 mg PO QAM ABISAI Stop: 07/06/24 08:59 Last Admin: 06/06/24 08:37 Dose: 100 mg PG Care Time/CCT Total # of Minutes Spent Total Time Spent with Patient: Total time spent is greater than 50% in coordination of care (as documented) at patient's floor/unit and/or counseling patient: Coding Level of Care Code 50062 SUB INP/OBS CARE 2/35MIN Diagnoses Ascites R18.8 Elevated LFTs R79.89 Rectal bleeding K62.5 Time Spent (min) 35
[2024-06-09 06:20] LABS: BUN Creatinine Ratio 8.8 (10-20); Calcium 7.6 mg/dl (8.6-10.3); Creatinine Clr Calc Pharmacy 125.4 ml/min; Potassium 3.8 mmol/L (3.5-5.1)
[2024-06-09 06:29] LABS: Hematocrit (blood only) 20.8 % (37.0-47.0); Hemoglobin 6.7 g/dl (12.0-16.0); Mean Corpuscular Hemoglobin 29.9 pg (25.0-34.0); Mean Corpuscular Hgb Conc 32.2 g/dL (32.0-36.0); Mean Corpuscular Volume 92.9 fL (80.0-100.0); Mean Platelet Volume 10.6 fL (9.4-12.4); Platelet Count 64 K/uL (130-400); RDW Coefficient of Variation 18.6 % (11.5-14.5); RDW Standard Deviation 61.1 fL (36.4-46.3); Red Blood Count 2.24 M/uL (4.20-5.40)
[2024-06-09] MEDS ORDERED: SODIUM CHLORIDE 0.9% 100 ML IV PRN ×2 (06:34→07:17)
[2024-06-09] MEDS: PANTOprazole 40 MG TAB PO SCH (11:14)
[2024-06-09] MEDS: SPIRONOLACTONE 25 MG TAB PO ONE (11:15)
--- NOTE | 2024-06-09 12:17 | Hospitalist Progress Note ---
Date of Service June 09, 2024 Assessment & Plan (1) Ascites: Plan: s/p paracentesis on 06/06 with 7-8 liter remove she's need to f/u with IR or GI for interval paracentesis (2) Elevated LFTs: Plan: discussed at length about avoiding alcohol she's need to set up hepatology risk of liver failure, explained discussed high protein diet need interval MELD score monitoring (3) Rectal bleeding: Plan: she's has colonoscopy in Dec 2023 s/p repeat colonoscopy on 06/08/2024, found two polyps also found internal hemorrhoid outpatient f/u with GI docgtor Plan Patient is a 38-year-old woman with history of alcohol use disorder, colonic polyp, pancytopenia, she was following with hematology, she had colonoscopy in January 10, 2024 On June 05 she was referred by hematology clinic to ED for anemia with H&H of 6.2 status post blood transfusion her CT scan found hepatomegaly splenomegaly, abdominal pelvic ascites and peritoneal thickening Noticed she have endoscopy and colonoscopy in December they found 4 polyps noted Limited bowel prep and recommend repeat colonoscopy in 3 months GI will plan on EGD and colonoscopy tomorrow Anemia Peritoneal thickening Pancytopenia Colonic polyp Esophageal stenosis Gastritis overall plan getting one unit today repeat h/h case management to establish hepatology she stated she's has good support system plan for paracentesis tomorrow aldactone and IV lasix f/u on bone marrow biopsy result anemia she's has a hematochezia episode on 06/08/2024 overnight has another unit on 06/09/2024 day time (irradiated) consult surgery for banding procedure colonoscopy on 06/07 found internal hemorrhoid and two polyps need repeat colonoscpy in 3 years, that been discused with the patient s/p bone marrow biopsy cirrhosis she was advised at length about quitting drinking she will establish hepatology and has interval MELD score monitoring she's requested hepatology referral to be made Abdominal ascites s/p paracentesis (06/06) and removed 6 liter ceftriaxone empiric till ascites fluid return starting aldactone and IV lasix 40mg Pancytopenia she was following with hematology they will f/u on bone marrow biopsy result Peritoneal wall thickening ovarian ultrasound negative no period 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 Esophageal stenosis gastritis EGD done on January 10, 2020 for PPI Admission and Anticipated Discharge Date Admission Date: June 05, 2024 Subjective She had another hematochezia episode last night, H&H dropped 7.3-6.7 Giving another unit, GI request consulting surgery for banding In addition still have ascites Review of Systems Review of Systems: Constitutional: No Weight Change, No Fever, No Chills, No Night Sweats, No Fatigue, No Malaise Cardiovascular: No Chest Pain, No SOB, No PND, No Dyspnea on Exertion, No Orthopnea, No Claudication, No Edema, No Palpitations Respiratory: No Cough, No Sputum, No Wheezing, No Smoke Exposure, No Dyspnea Gastrointestinal: + for hematochezia; no melena; + for abdominal distension, no nause, no vomitiung Genitourinary: No Dysmenorrhea, No DUB, No Dyspareunia, No Dysuria, No Urinary Frequency, No Hematuria, No Urinary Incontinence, No Urgency, No Flank Pain, No Urinary Flow Changes, No Hesitancy Musculoskeletal: No Arthralgias, No Myalgias, No Joint Swelling, No Joint Stiffness, No Back Pain, No Neck Pain, No Injury History Skin: No Skin Lesions, No Pruritis, No Hair Changes, No Breast/Skin Changes, No Nipple Discharge Neuro: No Weakness, No Numbness, No Paresthesias, No Loss of Consciousness, No Syncope, No Dizziness, No Headache, No Coordination Changes, No Recent Falls Physical Exam Physical Exam: VITALS: Reviewed. WEIGHT/BMI reviewed. GEN: Healthy appearing, well-developed, NAD. -Head: NC/AT; -Ears: External ears are normal. Normal TMs. -Nose: Normal nares. -Mouth and throat: MMM. Normal gums, muc sandra, palate,. Good dentition. NECK: Supple, with no masses. CV: RRR, no m/r/g. LUNGS: CTAB, no w/r/c.; no wheezing ABD: distended; + for fluid wave; non-tender to palpatoin; + for caput medusa : no CVA tenderness SKIN: Warm, well perfused. No skin rashes or abnormal lesions. MSK: No deformities, Normal gait. EXT: No clubbing, cyanosis, or edema. NEURO: AAox3 Results & Data Results & Data Vital Signs (Past 12 Hours) Vital Signs Temp Pulse Pulse Resp BP BP Pulse Ox 06/09/24 11:07 36.6 C 97 H 18 115/71 98 06/09/24 10:07 36.5 C 97 H 18 115/71 96 06/09/24 09:37 36.4 C L 105 H 18 112/70 94 06/09/24 09:22 36.6 C 100 H 17 114/67 96 06/09/24 09:21 36.6 C 100 H 17 114/67 96 06/09/24 09:00 36.7 C 101 H 18 123/75 95 06/09/24 08:41 103 H 06/09/24 06:59 36.5 C 102 H 18 114/65 94 06/09/24 03:19 36.8 C 102 H 20 107/63 96 O2 Del Method 06/09/24 11:07 06/09/24 10:07 06/09/24 09:37 06/09/24 09:22 06/09/24 09:21 06/09/24 09:00 06/09/24 08:41 06/09/24 06:59 Room Air 06/09/24 03:19 Room Air Laboratory Results Laboratory Results WBC 5.70 K/ul (4.8-10.8) 06/09/24 05:47 RBC 2.24 M/uL (4.20-5.40) L 06/09/24 05:47 Hgb 6.7 g/dl (12.0-16.0) L* 06/09/24 05:47 Hct 20.8 % (37.0-47.0) L* 06/09/24 05:47 MCV 92.9 fL (80.0-100.0) 06/09/24 05:47 MCH 29.9 pg (25.0-34.0) 06/09/24 05:47 MCHC 32.2 g/dL (32.0-36.0) 06/09/24 05:47 RDW Std Deviation 61.1 fL (36.4-46.3) H 06/09/24 05:47 RDW Coeff of Jessenia 18.6 % (11.5-14.5) H 06/09/24 05:47 Plt Count 64 K/uL (130-400) L 06/09/24 05:47 MPV 10.6 fL (9.4-12.4) 06/09/24 05:47 PT 14.4 Seconds (9.0-12.0) H 06/06/24 06:33 INR 1.4 (0.9-1.1) H 06/06/24 06:33 Sodium 126 mmol/L (136-145) L 06/09/24 05:47 Potassium 3.8 mmol/L (3.5-5.1) 06/09/24 05:47 Chloride 94 mmol/L (98-107) L 06/09/24 05:47 Carbon Dioxide 30 mmol/L (21-32) 06/09/24 05:47 Anion Gap 2 (3-11) L 06/09/24 05:47 BUN 6 mg/dl (6-23) 06/09/24 05:47 Creatinine 0.68 mg/dl (0.6-1.2) 06/09/24 05:47 Est Cr Clr Drug Dosing 125.4 ml/min 06/09/24 05:47 eGFR 114.25 06/09/24 05:47 BUN/Creatinine Ratio 8.8 (10-20) L 06/09/24 05:47 Glucose 102 mg/dl (70-99(Fasting)) H 06/09/24 05:47 Calcium 7.6 mg/dl (8.6-10.3) L 06/09/24 05:47 Total Bilirubin 5.0 mg/dl (0.2-1.0) H 06/08/24 06:50 AST 32 U/L (13-39) 06/08/24 06:50 ALT 12 U/L (7-52) 06/08/24 06:50 Alkaline Phosphatase 110 U/L (34-104) H 06/08/24 06:50 Ammonia 43.0 umol/L (18-72) 06/09/24 05:47 Total Protein 5.2 gm/dl (6.0-8.3) L 06/08/24 06:50 Albumin 2.3 gm/dl (3.4-5.0) L 06/08/24 06:50 Globulin 2.9 gm/dl (2.5-4.0) 06/08/24 06:50 Albumin/Globulin Ratio 0.8 (0.9-2) L 06/08/24 06:50 Carcinoembryonic Ag 5.9 ng/ml (0-2.5) H 06/05/24 18:39 Fluid Neutrophils % 19 % 06/06/24 Unknown Fluid Lymphocytes % 36 % 06/06/24 Unknown Fluid Meso/Macro/Iroquois % 45 % 06/06/24 Unknown Fluid Comment 06/06/24 Unknown Peritoneal Color Yellow 06/06/24 Unknown Peritoneal Appearance Clear 06/06/24 Unknown Peritoneal WBC (Auto) 64 /ul (0-300) 06/06/24 Unknown Peritoneal RBC (Auto) < 2000 /uL 06/06/24 Unknown Peritoneal Tot Protein < 3.0 gm/dl 06/06/24 Unknown Peritoneal Albumin < 1.5 gm/dl 06/06/24 Unknown Blood Type A Positive 06/09/24 06:43 Antibody Screen NEGATIVE 06/09/24 06:43 Crossmatch See Detail 06/09/24 06:43 Impressions Transvaginal US 06/06/24 09:46 US transvaginal CLINICAL HISTORY: r/o ovarian, and endometrial cancer COMPARISON STUDY: CT of 05/24/2024 FINDINGS: There is moderate ascites in the pelvis. Endometrial thickness is 2 mm, less than typical. Uterus measures 6 x 3 x 4 cm. Left ovary measures 2 x 1 x 1 cm. Right ovary measures 1 x 1 x 1 cm. The ovaries are smaller than typical, otherwise unremarkable. There is Doppler flow to the ovaries. IMPRESSION: 1. Endometrial thickness is less than typical and the ovaries are smaller than typical. Suggest clinical correlation for early menopause or other endocrine syndrome. 2. Moderate ascites. ACT 112: Negative or not required by law. Electronically signed by: Bo Gabriel M.D. 06/06/2024 11:30 AM Paracentesis Ultrasound 06/06/24 12:54 ULTRASOUND GUIDED PARACENTESIS CLINICAL HISTORY: ascites COMPARISON STUDY: None PROCEDURE: The risks, benefits, and alternatives to the procedure were discussed with the patient including the risk of bleeding, infection and injury to adjacent structures. The patient agreed to the procedure and informed written consent was obtained. Following real-time ultrasound localization, the skin was prepped and draped. Following local anesthesia with Xylocaine, the sheath paracentesis needle was inserted and approximately 6 liters of straw-colored fluid was removed by vacuum suction. The patient tolerated the procedure well and no immediate complications were evident. IMPRESSION: Ultrasound-guided paracentesis with removal of 6 liters of ascites. ACT 112: Negative or not required by law. Electronically signed by: Bo Gabriel M.D. 06/06/2024 3:07 PM Medications Administered Current Inpatient Medications Al Hydrox/Mg Hydrox/Simethicone (Aluminum/Magnesium Susp 30 Ml Udc) 15 ml PO Q4H PRN PRN Reason: Dyspepsia Stop: 07/05/24 17:21 Duloxetine HCl (Duloxetine Hcl 20 Mg Cap) 40 mg PO QAM [facility] Stop: 07/06/24 08:59 Last Admin: 06/09/24 07:55 Dose: 40 mg Furosemide (Furosemide 20 Mg Tab) 20 mg PO DAILY ABISAI Stop: 07/07/24 08:59 Last Admin: 06/09/24 07:55 Dose: 20 mg Ceftriaxone Sodium (Rocephin) 2,000 mg in 50 mls @ 100 mls/hr IV Q24H ABISAI Stop: 06/17/24 08:14 Last Infusion: 06/09/24 10:12 Dose: Infused Sodium Chloride (Nss) 100 mls @ 15 mls/hr IV .Q6H40M PRN PRN Reason: For Transfusion Duration Stop: 06/09/24 14:34 Sodium Chloride (Nss) 100 mls @ 15 mls/hr IV .Q6H40M PRN PRN Reason: For Transfusion Duration Stop: 06/09/24 15:17 Lorazepam (Lorazepam 1 Mg Tab) 1 mg PO ONE PRN; Protocol PRN Reason: EtoH Withdrawal AWSS 6,7,8,9,10 Lorazepam (Lorazepam 2 Mg/1 Ml Vial) 1 mg IV ONE PRN; Protocol PRN Reason: EtoH Withdrawal AWSS 6-10 Ondansetron HCl (Ondansetron Inj 2 Mg/Ml 2 Ml Vial) 4 mg IV Q6H PRN PRN Reason: Nausea Stop: 07/05/24 17:21 Pantoprazole Sodium (Pantoprazole 40 Mg Tab) 40 mg PO QAM [facility] Stop: 07/09/24 08:59 Last Admin: 06/09/24 11:14 Dose: 40 mg Rifaximin (Rifaximin 550 Mg Tablet) 550 mg PO BID [facility] Stop: 07/06/24 08:59 Last Admin: 06/09/24 07:55 Dose: 550 mg Thiamine HCl (Thiamine Hcl 100 Mg Tab) 100 mg PO QAM [facility] Stop: 07/06/24 08:59 Last Admin: 06/06/24 08:37 Dose: 100 mg PG Care Time/CCT Total # of Minutes Spent Total Time Spent with Patient: Total time spent is greater than 50% in coordination of care (as documented) at patient's floor/unit and/or counseling patient: Coding Level of Care Code 71437 SUB INP/OBS CARE 2/35MIN Diagnoses Ascites R18.8 Elevated LFTs R79.89 Rectal bleeding K62.5
[2024-06-09] MEDS: FUROSEMIDE 40 MG/4 ML VIAL IV ONE (12:55)
[2024-06-09 17:21] LABS: Hematocrit (blood only) 24.9 % (37.0-47.0); Mean Corpuscular Hemoglobin 30.1 pg (25.0-34.0); Mean Corpuscular Hgb Conc 32.1 g/dL (32.0-36.0); Mean Corpuscular Volume 93.6 fL (80.0-100.0); Mean Platelet Volume 10.2 fL (9.4-12.4); Platelet Count 73 K/uL (130-400); RDW Coefficient of Variation 18.6 % (11.5-14.5); RDW Standard Deviation 61.6 fL (36.4-46.3); Red Blood Count 2.66 M/uL (4.20-5.40); White Blood Count 7.07 K/ul (4.8-10.8)
[2024-06-10 06:46] LABS: Hematocrit (blood only) 22.3 % (37.0-47.0); Hemoglobin 7.4 g/dl (12.0-16.0); Mean Corpuscular Hemoglobin 30.3 pg (25.0-34.0); Mean Corpuscular Hgb Conc 33.2 g/dL (32.0-36.0); Mean Corpuscular Volume 91.4 fL (80.0-100.0); Mean Platelet Volume 10.2 fL (9.4-12.4); Platelet Count 65 K/uL (130-400); RDW Coefficient of Variation 18.6 % (11.5-14.5); RDW Standard Deviation 60.2 fL (36.4-46.3); Red Blood Count 2.44 M/uL (4.20-5.40); White Blood Count 6.29 K/ul (4.8-10.8)
[2024-06-10 06:57] LABS: BUN Creatinine Ratio 8.3 (10-20); Calcium 7.6 mg/dl (8.6-10.3); Creatinine Clr Calc Pharmacy 142.1 ml/min; Potassium 3.2 mmol/L (3.5-5.1)
--- NOTE | 2024-06-10 07:40 | Surgery Consultation ---
Date of Consultation June 10, 2024 Assessment & Plan (1) Cirrhosis: (2) Rectal bleeding: Likely bleeding secondary to hemorrhoids. Pt high risk with cirrhosis. Currently low platelets She will follow up with GI or colorectal in the office for consideration for banding. May be discharged if H/H has been stable History of Present Illness Attending Physician: Alice Figueroa DO History of Present Illness 38F presented for bone marrow biopsy on 06/05. Pre biopsy labs revealed anemia and she was admitted thereafter. Patient explains she has had bleeding per rectum for a year and a half. She has been seen by her PCP who referred her for colonoscopy performed in December where polyps were found and removed. She continues to bleed. She has had another colonoscopy 06/08/24 identified internal hemorrhoids and she was recommended for outpatient surgical followup. She has not tried any alleviating factors. Bleeding is occasional but is exacerbated whenever she lifts anything, uses the restroom or performs strenuous activity. Allergies Allergy/AdvReac Type Severity Reaction Status Date / Time No Known Allergies Allergy Verified 06/07/24 12:03 Home Medications Medication Instructions Recorded Confirmed Type cyanocobalamin (vitamin B-12) 1,000 mcg IM MONTHLY 12/12/23 06/05/24 History 1,000 mcg/mL injection kit docosahexaenoic acid 200 mg 200 mg PO UD 12/12/23 06/05/24 History capsule ( DHA) duloxetine 40 mg capsule,delayed 40 mg PO QAM 12/12/23 06/05/24 History release niacin 250 mg tablet 250 mg PO DAILY 12/12/23 06/05/24 History pantoprazole 40 mg tablet,delayed 40 mg PO HS 05/29/24 06/05/24 History release (Protonix) furosemide 20 mg tablet (Lasix) 20 mg PO DAILY 06/05/24 06/05/24 History Patient History Medical History Hx of ascites pt unsure Liver fibrosis pt unsure Rectal bleeding ongoing per pt Surgical History Hx of colonoscopy 12/2023 History of esophagogastroduodenoscopy (EGD) 12/2023 Family History Grandfather (Paternal) Diabetes Denies family history of Crohn's disease Colorectal cancer Ulcerative colitis Social History Smoking Status: Light tobacco smoker Tobacco Type: Cigarettes packs per day: 0.25; Cigarettes Per Day: 2; Second Hand Exposure: No; Do You Dip or Chew Tobacco: No; Tobacco Cessation Education Requested by Patient: No Hx Alcohol Use: Yes Alcohol type: other Hx Substance Use: No Preferred Language: Cymraes Communication Ability: Effective Barrel Raiser Helper Required: No Beliefs That Will Affect Care: None Current Living Situation: Spouse Other Information That Helps Us Care for You: No Feels Safe at Home: Yes Safety Concerns: Feels Safe At This Time Assistive Devices: None Review of Systems Review of Systems: All systems reviewed & are unremarkable except as noted in HPI & below Physical Exam Constitutional: + ill appearing (chronically); no acute distress, no altered mental status and not diaphoretic Respiratory: normal respiratory effort; no respiratory distress, no labored breathing and does not use accessory muscles Gastrointestinal (Abdomen): Evidence for hemorrhoids at the anus, skin tags No significant internal hemorrhoid prolapse. No bleeeding. Results & Data Vital Signs (Past 12 Hours) Vital Signs Temp Pulse Pulse Resp BP BP Pulse Ox 06/10/24 03:16 36.6 C 98 H 16 117/71 96 06/09/24 22:43 37 C 100 H 18 111/70 97 06/09/24 21:52 114 H 06/09/24 20:11 36.8 C 104 H 16 117/75 97 O2 Del Method 06/10/24 03:16 Room Air 06/09/24 22:43 Room Air 06/09/24 21:52 06/09/24 20:11 Room Air PG Care Time/CCT Total # of Minutes Spent Total Time Spent with Patient: Total time spent is greater than 50% in coordination of care (as documented) at patient's floor/unit and/or counseling patient: Coding Level of Care Code 32117 OP VST NEW MOD 45 MIN Diagnoses Alcoholic cirrhosis of liver with ascites K70.31 Hepatic cirrhosis type: alcoholic cirrhosis Ascites presence: with ascites Rectal bleeding K62.5 (1) Cirrhosis Hepatic cirrhosis type: alcoholic cirrhosis Ascites presence: with ascites Qualified Code(s): K70.31 - Alcoholic cirrhosis of liver with ascites
[2024-06-10] MEDS: POTASSIUM CHLORIDE CRTAB 20 MEQ TABCR PO SCH (09:18)
[2024-06-10 09:44] LABS: Hep B Core Total Antibody Negative (Negative)
[2024-06-10 09:53] LABS: Hep C Ab Rflx HepCQuant RNA Negative (Negative)
[2024-06-10 10:44] VITALS: RESP 18
[2024-06-10 11:12] VITALS: TEMP 98.1
--- NOTE | 2024-06-10 15:11 | Ultrasound Report ---
ULTRASOUND-GUIDED PARACENTESIS CLINICAL HISTORY: Ascites PROCEDURE: Procedure and risks were explained. Informed consent was obtained. A final timeout was com pleted. The abdomen was prepped and draped in sterile fashion. 1% lidocaine was utilized for skin ane sthesia. Utilizing ultrasound guidance, a 5 English safety centesis catheter was advanced into the right lower quadrant pocket of ascites. Ultrasound images were obtained. 2 L of yellow-colored ascites fluid was removed and discarded. The catheter was removed and Band-Aid applied. The patient tolerated the proce dure well. Vital signs will be monitored postprocedure. IMPRESSION: Ultrasound-guided paracentesis as above. Performed, dictated, and signed by Rj Aguero PA-C; to be co-signed by Dr. Dereck Rodriguez. Electronically signed by: Dereck Rodriguez M.D. 06/10/2024 4:09 PM
[2024-06-10 15:13] LABS: Hematocrit (blood only) 25.3 % (37.0-47.0); Hemoglobin 8.1 g/dl (12.0-16.0); Mean Corpuscular Hemoglobin 29.9 pg (25.0-34.0); Mean Corpuscular Volume 93.4 fL (80.0-100.0); Mean Platelet Volume 10.2 fL (9.4-12.4); Platelet Count 79 K/uL (130-400); RDW Coefficient of Variation 18.7 % (11.5-14.5); RDW Standard Deviation 61.6 fL (36.4-46.3); Red Blood Count 2.71 M/uL (4.20-5.40)
[2024-06-10 15:49] VITALS: PULSE 94; O2SAT 100
[2024-06-10] MEDS: POTASSIUM CHLORIDE 20 MEQ/15 ML UDC PO STA (16:00)
--- NOTE | 2024-06-10 17:01 | Hospitalist Progress Note ---
Date of Service June 10, 2024 Assessment & Plan (1) Ascites: Plan: s/p paracentesis on 06/06 with 7-8 liter remove s/p another para on 06/10 (2 liter removed) she's need to f/u with IR or GI for interval paracentesis (2) Elevated LFTs: Plan: discussed at length about avoiding alcohol she's need to set up hepatology risk of liver failure, explained discussed high protein diet need interval MELD score monitoring (3) Rectal bleeding: Plan: she's has colonoscopy in Dec 2023 s/p repeat colonoscopy on 06/08/2024, found two polyps continue to have hematochezia she's need to either transfer to [facility] or go to the office the banding procedure Plan Patient is a 38-year-old woman with history of alcohol use disorder, colonic polyp, pancytopenia, she was following with hematology, she had colonoscopy in January 10, 2024 On June 05 she was referred by hematology clinic to ED for anemia with H&H of 6.2 status post blood transfusion her CT scan found hepatomegaly splenomegaly, abdominal pelvic ascites and peritoneal thickening Noticed she have endoscopy and colonoscopy in December they found 4 polyps noted Limited bowel prep and recommend repeat colonoscopy in 3 months GI will plan on EGD and colonoscopy tomorrow Anemia Peritoneal thickening Pancytopenia Colonic polyp Esophageal stenosis Gastritis overall plan H/h stable. s/p paracentesis our facility does not has colorectal coverage she's will need f/u at [facility] for banding of hemorrhoid she need to establish with hepatology and to be on transplant liver she was advise to quit drinking. no month wash anemia she's has a hematochezia episode on 06/08/2024 overnight has another unit on 06/09/2024 day time (irradiated) consult surgery for banding procedure colonoscopy on 06/07 found internal hemorrhoid and two polyps need repeat colonoscpy in 3 years, that been discused with the patient s/p bone marrow biopsy cirrhosis no drinking f/u on hep B and Hep titer she will establish hepatology and has interval MELD score monitoring she's requested hepatology referral to be made Abdominal ascites s/p paracentesis (06/06) and removed 6 liter s/p paracentesis on 06/10, 2 liter removed Pancytopenia she was following with hematology they will f/u on bone marrow biopsy result Peritoneal wall thickening ovarian ultrasound negative no period 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 Esophageal stenosis gastritis EGD done on January 10, 2020 for PPI Admission and Anticipated Discharge Date Admission Date: June 05, 2024 Subjective She still have bleeding in the stool She had abdominal distention status post 2 L of ascites fluid We started Aldactone yesterday and now she is making good urine output Review of Systems Review of Systems: Constitutional: No Weight Change, No Fever, No Chills, No Night Sweats, No Fatigue, No Malaise Cardiovascular: No Chest Pain, No SOB, No PND, No Dyspnea on Exertion, No Orthopnea, No Claudication, No Edema, No Palpitations Respiratory: No Cough, No Sputum, No Wheezing, No Smoke Exposure, No Dyspnea Gastrointestinal: + for hematochezia; + for abdominal distension; no nausea, no vomiting Neuro: No Weakness, No Numbness, No Paresthesias, No Loss of Consciousness, No Syncope, No Dizziness, No Headache, No Coordination Changes, No Recent Falls Psych: No Anxiety/Panic, No Depression, No Insomnia, No Personality Changes, No Delusions, No Rumination, No SI/HI/AH/VH, No Social Issues, No Memory Changes, No Violence/Abuse Hx., No Eating Concerns Heme/Lymph: No Bruising, No Bleeding, No Transfusions History, No Lymphad enopathy Endocrine: No Polyuria, No Polydipsia, No Temperature Intolerance Physical Exam Physical Exam: VITALS: Reviewed. WEIGHT/BMI reviewed. GEN: Healthy appearing, well-developed, NAD. -Head: NC/AT; NECK: Supple, with no masses. CV: RRR, no m/r/g. LUNGS: CTAB, no w/r/c. ABD:+ for distension; soft to touch; : N/A SKIN: Warm, well perfused. No skin rashes or abnormal lesions. EXT: twice edema; NEURO: AAOx3 Results & Data Results & Data Vital Signs (Past 12 Hours) Vital Signs Temp Pulse Pulse Resp BP Pulse Ox O2 Del Method 06/10/24 15:49 36.7 C 94 H 18 120/80 100 Room Air 06/10/24 11:10 36.7 C 96 H 18 118/70 98 Room Air 06/10/24 10:37 101 H 06/10/24 07:20 36.8 C 108 H 18 101/67 94 Room Air Laboratory Results Abnormal lab results 06/09/24 06/10/24 06/10/24 Range/Units 17:04 06:11 14:57 RBC 2.66 L 2.44 L 2.71 L (4.20-5.40) M/uL Hgb 8.0 L 7.4 L 8.1 L (12.0-16.0) g/dl Hct 24.9 L 22.3 L 25.3 L (37.0-47.0) % RDW Std Deviation 61.6 H 60.2 H 61.6 H (36.4-46.3) fL RDW Coeff of Jessenia 18.6 H 18.6 H 18.7 H (11.5-14.5) % Plt Count 73 L 65 L 79 L (130-400) K/uL Sodium 125 L (136-145) mmol/L Potassium 3.2 L (3.5-5.1) mmol/L Chloride 93 L (98-107) mmol/L BUN 5 L (6-23) mg/dl BUN/Creatinine Ratio 8.3 L (10-20) Calcium 7.6 L (8.6-10.3) mg/dl Medications Administered Current Inpatient Medications Al Hydrox/Mg Hydrox/Simethicone (Aluminum/Magnesium Susp 30 Ml Udc) 15 ml PO Q4H PRN PRN Reason: Dyspepsia Stop: 07/05/24 17:21 Duloxetine HCl (Duloxetine Hcl 20 Mg Cap) 40 mg PO QAM ABISAI Stop: 07/06/24 08:59 Last Admin: 06/10/24 09:17 Dose: 40 mg Furosemide (Furosemide 20 Mg Tab) 20 mg PO DAILY ABISAI Stop: 07/07/24 08:59 Last Admin: 06/10/24 09:17 Dose: 20 mg Ceftriaxone Sodium (Rocephin) 2,000 mg in 50 mls @ 100 mls/hr IV Q24H ABISAI Stop: 06/17/24 08:14 Last Infusion: 06/10/24 10:22 Dose: Infused Lorazepam (Lorazepam 1 Mg Tab) 1 mg PO ONE PRN; Protocol PRN Reason: EtoH Withdrawal AWSS 6,7,8,9,10 Lorazepam (Lorazepam 2 Mg/1 Ml Vial) 1 mg IV ONE PRN; Protocol PRN Reason: EtoH Withdrawal AWSS 6-10 Ondansetron HCl (Ondansetron Inj 2 Mg/Ml 2 Ml Vial) 4 mg IV Q6H PRN PRN Reason: Nausea Stop: 07/05/24 17:21 Pantoprazole Sodium (Pantoprazole 40 Mg Tab) 40 mg PO QAM [facility] Stop: 07/09/24 08:59 Last Admin: 06/10/24 09:18 Dose: 40 mg Potassium Chloride (Potassium Chloride Crtab 20 Meq Tabcr) [facility] Stop: 07/10/24 08:59 Last Admin: 06/10/24 09:18 Dose: 40 meq Rifaximin (Rifaximin 550 Mg Tablet) 550 mg PO BID [facility] Stop: 07/06/24 08:59 Last Admin: 06/10/24 09:17 Dose: 550 mg Thiamine HCl (Thiamine Hcl 100 Mg Tab) [facility] [place] Stop: 07/06/24 08:59 Last Admin: 06/06/24 08:37 Dose: 100 mg PG Care Time/CCT Total # of Minutes Spent Total Time Spent with Patient: Total time spent is greater than 50% in coordination of care (as documented) at patient's floor/unit and/or counseling patient: Coding Level of Care Code 70853 SUB INP/OBS CARE 2/35MIN Diagnoses Ascites R18.8 Elevated LFTs R79.89 Rectal bleeding K62.5 Time Spent (min) 35
[2024-06-10 18:01] VITALS: BP 117/71
--- NOTE | 2024-06-10 18:07 | Discharge Summary ---
Discharge Summary Date of Service June 10, 2024 Principal Dx & Hospital Course #1 = Principal Diagnosis (1) Ascites: s/p paracentesis on 06/06 with 7-8 liter remove s/p another para on 06/10 (2 liter removed) she's need to f/u with IR or GI for interval paracentesis (2) Elevated LFTs: discussed at length about avoiding alcohol she's need to set up hepatology risk of liver failure, explained discussed high protein diet need interval MELD score monitoring (3) Rectal bleeding: she's has colonoscopy in Dec 2023 s/p repeat colonoscopy on 06/08/2024, found two polyps continue to have hematochezia I communicate with surgeon and GI specialist at [facility] but neither can performed banding [facility] [place] does not have colorectal coverage she will have appointment at GI [address] [place] [address] they have GI specialist that can performoed hemorrohoid banding If [facility] cannot perform hemorrhoid banding, patient will seek medical attention at [facility] or [facility] Plan Patient is a 38-year-old woman with history of alcohol use disorder, colonic polyp, pancytopenia, she was following with hematology, she had colonoscopy in January 10, 2024 On June 05 she was referred by hematology clinic to ED for anemia with H&H of 6.2 status post blood transfusion her CT scan found hepatomegaly splenomegaly, abdominal pelvic ascites and peritoneal thickening Noticed she have endoscopy and colonoscopy in December they found 4 polyps noted Limited bowel prep and recommend repeat colonoscopy in 3 months GI will plan on EGD and colonoscopy tomorrow Anemia Peritoneal thickening Pancytopenia Colonic polyp Esophageal stenosis Gastritis hemorrhoid bleeding she's will f/u wit outpaitent GI at [place] [id number] [facility] [id number] on 06/11 at 9:45am anemia hematochezia episode slowing down docusaste to prevent straininig h/h stable at 8.1 spoke at length with instructional aide surgeon and GI neither can perform hemorrhoid banding. colonoscopy on 06/07 found internal hemorhoid and two polyps need repeat colonoscpy in 3 years, that been discused with the patient s/p bone marrow biopsy hemorrhoid bleeding f/u with outpatient GI at [place] [id number] [facility]. 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 Patient had 2 units of leukocyte reduced irradiated blood as she was initially referred for pancytopenia. Patient was requested admission due to abnormality seen on CT scan including hepatosplenomegaly, changes consistent with portal hypertension, and abdominal pelvic ascites. There is thickening and nodularity of the peritoneal reflections which could include differential diagnosis of bacterial peritonitis or carcinomatosis. Patient had an endoscopy and colonoscopy in December 2023. The results of that were 4 polyps removed and subject stricture which dilated and gastritis. However since that time the patient states she has been having rectal bleeding at times not even associated with bowel movements despite this she is not had any close follow-up for that. The patient typically receives her health care at [facility] and has been seeing them for about 1 years time where she has been battling alcohol abuse and tobacco abuse. She presented with issues with peripheral edema significant B12 deficiency and was counseled to stop drinking alcohol. Hospital course She have alcoholic cirrhosis, abdominal ascites, been having hematochezia with bowel movement Her H&H was 6.3 and was referred by hematology to hospitalist service, status post transfusion her colonoscopy from bleeding hemorrhoid and several polyp She was recommended repeat colonoscopy in 3 years, she have significant ascites status post paracentesis on June 06 with 4 L removed she had another paracentes is on June 10 with 2 L removed On June 09, her H&H was low at 6.7 she had blood transfusion 1 unit H&H stable at 8.1 She still have mild hematochezia, however our GI and colorectal surgeon do not p erform hemorrhoid banding Her insurance does not allow us to transfer her to [facility] does not have colorectal coverage We were able to find a outpatient GI at [place] that can perform banding She will see GI on June 11 at 9:45 AM for establishment of care She does not want to go to [place] She will have her friend drive her to outpatient GI tomorrow If they determined that they cannot perform hemorrhoidal banding She will seek medical attention in the ED or at [place] [facility] Discharge Exam VITALS: Reviewed. WEIGHT/BMI reviewed. GEN: Healthy appearing, well-developed, NAD. Neuro: AAox3; able to speak in full sentence. able to follow comman -Head: NC/AT; NECK: Supple, with no masses. CV: RRR, no m/r/g. LUNGS: CTAB, no w/r/c. ABD: + for abdominal distension; soft to touch; normoactive bowel sound SKIN: spider angiomao on the chest MSK: trace edema Discharge Plan Discharge Items Patient Disposition: Home - Self-Care Reason For Visit: HEMATOCHEZIA, ANEMIA, HEPATOMEGALLY Discharge Diagnosis: blood loss anemia, cirrhosis bleeding hemorrhoid, elevated ammonia Condition on Discharge: Fair Activity: Per Instructions section Lifting: No more than 10 pounds Bathing: No limitations Non-emergency contact: Primary Care Provider and Web Marketing Assistant Call non-emergency contact if: you have any medication questions, your symptoms worsen and your rectal temperature is above 100.4 Follow-up/Referrals: Sergio Saleem MD [Physician] - 06/11/24 1:30 pm (Please arrive to appointment by 1:15pm. Please bring insurance information. Thank you!) Lucía Yin PA-C [Primary Care Provider] - Diet: Low Fat Addtl Attending Provider Instructions: follow up with colorectal surgeon for hemorrhoid banding establish with hepatology for being on liver transplant follow up on hep B and Hep C titer in addition, you need to monitor your liver function (AST,ALT, total bilirubin, INR, sodium) on a regular basis low salt diet limit fatty food intake Pending Studies at Discharge: No Stand-Alone Forms: My ciValue, Smoking Cessation Medications and DC Order Prescriptions: New spironolactone [Aldactone] 25 mg tablet 25 mg PO DAILY Qty: 30 0RF Rx Instructions: hold for blood pressure lower than 100 Xifaxan 550 mg tablet 550 mg PO BID 30 Days Qty: 60 0RF potassium chloride 20 mEq tablet extended release 20 meq PO DAILY 10 Days Qty: 10 0RF lactulose 10 gram/15 mL solution 10 g PO DAILY 30 Days Qty: 3785 0RF Rx Instructions: one week after you banding your hemorrhoid, take lactulose 2-3 times a day. Continued duloxetine 40 mg capsule,delayed release(DR/EC) 40 mg PO QAM niacin 250 mg tablet 250 mg PO DAILY cyanocobalamin (vitamin B-12) 1,000 mcg/mL kit 1,000 mcg IM MONTHLY DHA 200 mg capsule 200 mg PO UD Patient Comments: takes occasionally pantoprazole [Protonix] 40 mg tablet,delayed release (DR/EC) 40 mg PO HS furosemide [Lasix] 20 mg Tablet 20 mg PO DAILY Discharge Orders: Discharge Order (Routine); Ordered 06/10/24 Ordered By: Alice Turner/Other Patient Handouts: Hepatic Encephalopathy, Cirrhosis of Liver Dc Admission Data Admit Date/Time: 06/05/24 17:23 Attending Provider: Alice Figueroa Admit Provider: Lee Jain Primary Care Provider: Lucía Yin Other Providers: Julio Mullins; Margaret Amaro Other Interventions: Discharge Summary Assessment (RN) Last Done: 06/07/24 14:43 Hospital Stay Data Consultations 06/05/24 17:22 Consult Gastroenterology Routine 06/10/24 07:12 Consult General Surgery Routine Procedures Performed Operation Date: 06/07/24 16:30 Actual Procedures p Colonoscopy Polypectomy - Julio Mullins MD Diagnostic Imagining Performed 06/06/24 09:46 US transvaginal Routine 06/06/24 12:54 IR paracentesis abd w/img US Urgent 06/10/24 08:17 IR paracentesis abd w/img US Urgent Pending Results Patient Have Any Pending Studies at Discharge: No Discharge Instructions Given to Patient (Per Discharging Provider) follow up with colorectal surgeon for hemorrhoid banding establish with hepatology for being on liver transplant follow up on hep B and Hep C titer in addition, you need to monitor your liver function (AST,ALT, total bilirubin, INR, sodium) on a regular basis low salt diet limit fatty food intake Total Time Total Time Spent Total Time Spent (In Minutes): 45 minutes Coding Level of Care Code 06047 INP/OBS DISCH >30 MIN Diagnoses Ascites R18.8 Elevated LFTs R79.89 Rectal bleeding K62.5 Time Spent (min) 45
== END 2024-06-10 18:28 | disposition home or self-care (01) | DRG 433 ==
LOC: 2S 17:17 → SUATTDRO 17:23

== ENCOUNTER 2024-07-05 09:40 | Inpatient (IN) ==
--- NOTE | 2024-07-05 10:19 | XRay Report ---
XR chest 1V portable CLINICAL HISTORY: Chest pain, nonspecific COMPARISON STUDY: None FINDINGS: Heart size and pulmonary vasculature are normal. Inspiration is shallow. There is stranding and patchy opacity at the left lung base. No pleural effusion or pneumothorax. IMPRESSION: Atelectasis versus early pneumonia left lung base. ACT 112: Negative or not required by law. Electronically signed by: Bo Gabriel M.D. 07/05/2024 10:18 AM
[2024-07-05] MEDS: SODIUM CHLORIDE 0.9% 500 ML IV ONE (10:21)
[2024-07-05 10:37] LABS: Hematocrit (blood only) 25.8 % (37.0-47.0); Hemoglobin 8.5 g/dl (12.0-16.0); Mean Corpuscular Hemoglobin 32.8 pg (25.0-34.0); Mean Corpuscular Hgb Conc 32.9 g/dL (32.0-36.0); Mean Corpuscular Volume 99.6 fL (80.0-100.0); Mean Platelet Volume 10.2 fL (9.4-12.4); Platelet Count 96 K/uL (130-400); RDW Coefficient of Variation 21.1 % (11.5-14.5); Red Blood Count 2.59 M/uL (4.20-5.40)
--- NOTE | 2024-07-05 10:44 | Emergency Department Note ---
Impression & Plan Acute hepatic encephalopathy, Ascites, Cirrhosis, Partial small bowel obstruction, Alcohol dependence, Thrombocytopenia, Pneumonia, UTI (urinary tract infection), Elevated LFTs ED Provider Note NAME: LUCAS DOSS AGE: 38 SEX: F : 1985 ARRIVES VIA: Walk-In INFORMANT: Patient ED PROVIDER(S): Jean Claude Clements MD CHIEF COMPLAINT: Change in mental status, cirrhosis PLAN: Disposition: Admit MEDICAL DECISION MAKING: The patient is a 38-year-old woman with a past medical history of alcohol abuse, cirrhosis, hepatic encephalopathy who presents to the emergency department via walk-in accompanied by her father for evaluation of worsening mental status with slowed speech and generalized weakness. Apparently the patient has been at home in bed for the past couple of days. The patient did have a therapeutic paracentesis 2 days ago. The patient reports having nausea and vomiting last night but denies any nausea or vomiting today. She denies any abdominal pain. She reports she has been taking her lactulose and is moving her bowels daily. She denies chest pain or shortness of breath. She admits to still drinking alcohol but knows she needs to quit. On evaluation the patient is chronically ill-appearing but no distress, afebrile heart in the 100s and vital signs otherwise stable. She exhibits dry mucous membranes. She has a distended but soft abdomen that is nontender. She has mild bilateral lower extremity edema. There is scleral icterus and jaundice. She exhibits bilateral upper extremity asterixis. She exhibits generalized weakness without focal extremity weakness. EKG without overt acute ischemia. CXR with suspected left basilar pneumonia per my personal preliminary review/interpretation. WBC 15.7 K with neutrophilia but no left shift. H/H and platelets similar to prior range of values. INR 1.4, similar to prior values. Chemistry without metabolic acidosis. Creatinine 1.47, increased from prior consistent with DAJUAN. Sodium 123, similar to baseline range of values in setting of patient cirrhosis. Total bilirubin 10.8 and direct bilirubin 4.6 increased from recent discharge and May though was similarly elevated during her hospitalization. Ammonia is 65, high normal. High-sensitivity troponin 5.9, within normal limits. Procalcitonin is 1.34. Lipase is not elevated. hCG negative. UA with WBCs and 4+ bacteria suspicious for infection. Medical alcohol was undetectable. Urine drug screen was negative. CTA of the head was performed and was negative for acute abnormalities. CT of the abdomen pelvis was performed and further characterizes left lower lobe pneumonia. Additional note is made of dilated loops of small bowel within the central abdomen with decompressed loops within the right abdomen suggestive of small bowel obstruction. However with the patient reports having nausea and vomiting last night denies experiencing any today and reports moving her bowels daily. Additional description of known cirrhosis with associated splenomegaly and abdominal varicosities and moderate abdominal ascites is noted. There is redemonstration of thickening and nodularity of the peritoneal reflections where SBP is considered within the differential with carcinomatosis considered less likely. Findings reviewed the patient and her father at the bedside. Patient did agree with plan for admission for further management. She did also consent to proceed with diagnostic and therapeutic paracentesis at the bedside. Case was reviewed with general surgery on-call, Dr. Bolton. Appreciate consultation recommendations. Agrees CT findings do not correlate clinically with the patient's presentation at this time. He will be available for inpatient team consultation. Case was discussed with Dr. Degroot [facility] hospitalist, who will evaluate the patient for admission. Diagnostic and therapeutic paracentesis completed per procedure note below. 2 L of yellow clear ascites fluid was obtained and fluid was sent for testing. Empiric treatment with IV ceftriaxone initiated. Admitting team updated. Ascites Gram stain subsequently with many WBCs seen, no organisms and culture pending. Cell counts with peritoneal WBC 103 with clear appearance. Neutrophil differential pending. Further management per admitting team. Triage Nursing notes reviewed and agree them. Prior/external medical records reviewed Vital Signs: reviewed Differential diagnosis: Infection, hypoglycemia, electrolyte abnormalities, overdose, toxicologic, cardiac sources, intracerebral event, neurologic, trauma, as well as other pathologies. ER treatment provided: See below. Diagnostics interpreted by me: ECG: Sinus tachycardia, 106 bpm, no ectopy, no overt ST elevation or depression, QTc 472, QRS 90. Cardiac Monitoring: An order for continuous cardiac monitoring was placed and demonstrated sinus tachycardia, 106 bpm, no ectopy. Laboratory studies: See below Imaging studies: See below Consultation(s): Dr. Bolton, General surgery on-call Dr. Degroot [facility] hospitalist. HPI: Per MDM. ROS: See above HPI for pertinent positives & negatives. A total of 10 systems reviewed and were otherwise negative. VITALS:See Below PHYSICAL EXAMINATION: GENERAL: Awake, alert, drowsy, chronically ill-appearing, in no distress HENT: Normocephalic, atraumatic. Oropharynx with dry mucous membranes and otherwise unremarkable. EYES: Normal conjunctiva. Sclera icteric. NECK: Supple. No nuchal rigidity. FROM. No JVD. RESPIRATORY: Clear to auscultation. CARDIAC: Regular rate, normal rhythm. Extremities warm and well perfused. Pulses equal. ABDOMEN: Distended with ascites but soft. No tenderness to palpation. No rebound or guarding. MUSCULOSKELETAL: Chest examination reveals no tenderness. The back is symmetrical on inspection without obvious abnormality. There is no CVA tenderness to palpation. No joint edema. LOWER EXTREMITIES: Calves are equal size bilaterally and non-tender. No edema. No discoloration. NEURO: Speech is slow and dysarthric. No overt aphasia. Generalized weakness without focal extremity weakness. Mild bilateral upper extremity asterixis. SKIN: Jaundice noted. No rash. ED COURSE: Procedures: Paracentesis Indication: Ascites, diagnostic (r/o SBP) and therapeutic. Verbal consent was obtained after the risks and benefits were explained, including but not limited to headache, bleeding/clotting, scarring, infection, pain, and bone/joint/nerve damage. At this time, the risks of the procedure are less than the risks of NOT performing the procedure. A time out was taken and the correct patient and site identified. The patient was placed in the supine position and the RLQ abdomen was prepped with chlorhexidine and draped in the standard fashion. Site was anesthetized locally with 1% lidocaine without epinephrine. Paracentesis needle was carefully advanced into peritoneal cavity. Yellow-clear fluid was obtained and the pigtail catheter was advanced while the needle was withdrawn. 2L of yellow-clear fluid was obtained and sent for studies. A bandaid was placed. The patient tolerated the procedure well and there were no complications. Jean Claude Clements MD Past Med/Surg History Problem List (Updated 07/05/24 @ 21:58 by Jean Claude Clements MD) UTI (urinary tract infection) (Acute) Pneumonia (Acute) Thrombocytopenia (Acute) Alcohol dependence (Acute) Acute hepatic encephalopathy (Acute) Partial small bowel obstruction (Acute) Hemorrhoids Hypokalemia Cirrhosis (Acute) Pancytopenia Liver fibrosis Ascites (Acute) Abnormal weight loss Abdominal pain Abdominal cramping Elevated LFTs (Acute) Rectal bleeding Medical History Hx of ascites pt unsure Liver fibrosis pt unsure Rectal bleeding ongoing per pt Surgical History Hx of colonoscopy 12/2023 History of esophagogastroduodenoscopy (EGD) 12/2023 Family History Grandfather (Paternal) Diabetes Denies family history of Crohn's disease Colorectal cancer Ulcerative colitis Social History Smoking Status: Current every day smoker Tobacco Type: Cigarettes packs per day: 0.25; Cigarettes Per Day: 1; Second Hand Exposure: No; Do You Dip or Chew Tobacco: No; Tobacco Cessation Education Requested by Patient: No Hx Alcohol Use: Yes Alcohol type: beer Hx Substance Use: No Preferred Language: Liberian Communication Ability: Effective 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 Beliefs That Will Affect Care: None Current Living Situation: Other Current Living Situation Comment: lives [facility] Other Information That Helps Us Care for You: No Feels Safe at Home: Yes Assistive Devices: Contacts Allergies Allergies Allergy/AdvReac Type Severity Reaction Status Date / Time No Known Allergies Allergy Verified 06/28/24 07:21 Home Meds Home Medications Medication Instructions Recorded Confirmed cyanocobalamin (vitamin B-12) 1,000 mcg IM MONTHLY 12/12/23 07/05/24 1,000 mcg/mL injection kit docosahexaenoic acid 200 mg 200 mg PO DAILY 12/12/23 07/05/24 capsule ( DHA) duloxetine 40 mg capsule,delayed 40 mg PO QAM 12/12/23 07/05/24 release niacin 250 mg tablet 250 mg PO DAILY 12/12/23 07/05/24 pantoprazole 40 mg tablet,delayed 40 mg PO HS 05/29/24 07/05/24 release (Protonix) furosemide 20 mg tablet (Lasix) 10 - 20 mg PO DAILY PRN Swelling 06/05/24 07/05/24 folic acid 1 mg tablet 1 mg PO DAILY 07/05/24 07/05/24 Previous Rx's Medication Instructions Recorded lactulose 10 gram/15 mL oral 10 g (15 mL) PO DAILY 30 days 06/10/24 solution #3,785 mL rifaximin 550 mg tablet (Xifaxan) 550 mg PO BID 30 days #60 tabs 06/10/24 spironolactone 25 mg tablet 25 mg PO DAILY #30 tabs 06/10/24 (Aldactone) Results & Data (ED) Vital Signs Vital Signs - 24 hr 07/05/24 09:47 07/05/24 10:17 07/05/24 10:22 Temperature 36.2 C L Temperature Source Temporal Artery Scan Pulse Rate 108 H 106 H Pulse Rate [Apical] Pulse Rhythm Respiratory Rate 18 Respiratory Effort / Characteristics Non-Labored Spontaneous Respiratory Depth Normal Blood Pressure 103/67 Blood Pressure [Right Arm] Blood Pressure Mean 79 Blood Pressure Mean [Right Arm] Pulse Oximetry 96 105 H Oxygen Delivery Method Room Air Room Air Sepsis Recent Fever Within 48 Hours No Sepsis New/Unexplained Change in Mental Status N/A Sepsis Action Taken by Nursing No Action Required 07/05/24 10:22 07/05/24 10:36 07/05/24 11:59 Temperature Temperature Source Pulse Rate 106 H Pulse Rate [Apical] 106 H 110 H Pulse Rhythm Regular Respiratory Rate 16 16 20 Respiratory Effort / Characteristics Non-Labored Spontaneous Non-Labored Respiratory Depth Normal Normal Blood Pressure Blood Pressure [Right Arm] 124/83 127/78 Blood Pressure Mean Blood Pressure Mean [Right Arm] 96 94 Pulse Oximetry 100 100 97 Oxygen Delivery Method Room Air Room Air Room Air Sepsis Recent Fever Within 48 Hours Sepsis New/Unexplained Change in Mental Status Sepsis Action Taken by Nursing 07/05/24 13:00 Temperature Temperature Source Pulse Rate Pulse Rate [Apical] 113 H Pulse Rhythm Respiratory Rate 20 Respiratory Effort / Characteristics Non-Labored Respiratory Depth Normal Blood Pressure Blood Pressure [Right Arm] 122/77 Blood Pressure Mean Blood Pressure Mean [Right Arm] 92 Pulse Oximetry 97 Oxygen Delivery Method Room Air Sepsis Recent Fever Within 48 Hours Sepsis New/Unexplained Change in Mental Status Sepsis Action Taken by Nursing Laboratory Data 07/05/24 10:07 07/05/24 10:07 Lab Results 07/05/24 07/05/24 07/05/24 Range/Units 10:07 10:15 12:37 WBC 15.70 H (4.8-10.8) K/ul RBC 2.59 L (4.20-5.40) M/uL Hgb 8.5 L (12.0-16.0) g/dl Hct 25.8 L (37.0-47.0) % MCV 99.6 (80.0-100.0) fL MCH 32.8 (25.0-34.0) pg MCHC 32.9 (32.0-36.0) g/dL RDW Std Deviation 78.0 H (36.4-46.3) fL RDW Coeff of Jessenia 21.1 H (11.5-14.5) % Plt Count 96 L (130-400) K/uL MPV 10.2 (9.4-12.4) fL Immature Gran % (Auto) 0.6 % Neut % (Auto) 80.7 % Lymph % (Auto) 9.6 % Fajardo % (Auto) 8.7 % Eos % (Auto) 0.3 % Baso % (Auto) 0.1 % Neut # (Auto) 12.66 H (1.40-6.50) K/uL Lymph # (Auto) 1.50 (1.20-3.40) K/uL Fajardo # (Auto) 1.37 H (0.11-0.59) K/uL Eos # (Auto) 0.05 (0.00-0.50) K/uL Baso # (Auto) 0.02 (0.00-0.20) K/uL Immature Gran # (Auto) 0.10 (0.01-0.20) K/uL Polychromasia 1+ Anisocytosis Present PT 14.5 H (9.0-12.0) Seconds INR 1.4 H (0.9-1.1) Sodium 123 L (136-145) mmol/L Potassium 4.7 (3.5-5.1) mmol/L Chloride 87 L (98-107) mmol/L Carbon Dioxide 25 (21-32) mmol/L Anion Gap 11 (3-11) BUN 19 (6-23) mg/dl Creatinine 1.47 H (0.6-1.2) mg/dl Est Cr Clr Drug Dosing 58.0 ml/min eGFR 46.58 BUN/Creatinine Ratio 12.9 (10-20) Glucose 112 H (70-99(Fasting)) mg/dl POC Glucose 122 H (70-99) mg/dl Osmolality 263 L (280-300) mOsm/kg Lactate (0.4-2.0) mmol/L Calcium 8.7 (8.6-10.3) mg/dl Phosphorus 5.8 H (2.5-4.9) mg/dl Magnesium 2.0 (1.7-2.4) mg/dl Total Bilirubin 10.8 H (0.2-1.0) mg/dl Direct Bilirubin 4.6 H (0-0.2) mg/dl AST 44 H (13-39) U/L ALT 20 (7-52) U/L Alkaline Phosphatase 125 H (34-104) U/L Ammonia 65.0 (18-72) umol/L Troponin I High Sens 5.9 (0-14) pg/ml C-Reactive Protein 6.52 H (0-0.5) mg/dl Total Protein 6.6 (6.0-8.3) gm/dl Albumin 2.7 L (3.4-5.0) gm/dl Globulin 3.9 (2.5-4.0) gm/dl Albumin/Globulin Ratio 0.7 L (0.9-2) Lipase 5 L (11-82) U/L Procalcitonin 1.34 H (0-0.5) ng/ml HCG, Qual Negative (Negative) Urine Color Urine Appearance (Clear) Urine pH Ur Specific [place] (1.000-1.030) Urine Protein Urine Glucose (UA) Urine Ketones Urine Blood Urine Nitrite Urine Bilirubin Urine Urobilinogen Ur Leukocyte Esterase Urine RBC (0-2) /hpf Urine WBC (0-5) /hpf Ur Epithelial Cells (0-2) /hpf Urine Bacteria (None Seen) Hyaline Casts (None Presnt) /lpf Urine Osmolality (500-800) mOsm/kg Ur Random Sodium mmol/L Urine Comment Urine Opiates Screen (Neg) Ur Methadone, Qual (Neg) Urine Fentanyl Screen (Neg) Urine Barbiturates (Neg) Ur Phencyclidine (PCP) (Neg) U Amphetamin/Meth Scrn (Neg) MDMA (Ecstasy) Screen (Neg) U Benzodiazepines Scrn (Neg) Ur Cocaine Metabolite (Neg) U Marijuana (THC) Screen (Neg) Ethyl Alcohol mg/dL < 10.0 (<10.0) mg/dl 07/05/24 07/05/24 Range/Units 12:41 12:52 WBC (4.8-10.8) K/ul RBC (4.20-5.40) M/uL Hgb (12.0-16.0) g/dl Hct (37.0-47.0) % MCV (80.0-100.0) fL MCH (25.0-34.0) pg MCHC (32.0-36.0) g/dL RDW Std Deviation (36.4-46.3) fL RDW Coeff of Jessenia (11.5-14.5) % Plt Count (130-400) K/uL MPV (9.4-12.4) fL Immature Gran % (Auto) % Neut % (Auto) % Lymph % (Auto) % Fajardo % (Auto) % Eos % (Auto) % Baso % (Auto) % Neut # (Auto) (1.40-6.50) K/uL Lymph # (Auto) (1.20-3.40) K/uL Fajardo # (Auto) (0.11-0.59) K/uL Eos # (Auto) (0.00-0.50) K/uL Baso # (Auto) (0.00-0.20) K/uL Immature Gran # (Auto) (0.01-0.20) K/uL Polychromasia Anisocytosis PT (9.0-12.0) Seconds INR (0.9-1.1) Sodium (136-145) mmol/L Potassium (3.5-5.1) mmol/L Chloride (98-107) mmol/L Carbon Dioxide (21-32) mmol/L Anion Gap (3-11) BUN (6-23) mg/dl Creatinine (0.6-1.2) mg/dl Est Cr Clr Drug Dosing ml/min eGFR BUN/Creatinine Ratio (10-20) Glucose (70-99(Fasting)) mg/dl POC Glucose (70-99) mg/dl Osmolality (280-300) mOsm/kg Lactate 1.7 (0.4-2.0) mmol/L Calcium (8.6-10.3) mg/dl Phosphorus (2.5-4.9) mg/dl Magnesium (1.7-2.4) mg/dl Total Bilirubin (0.2-1.0) mg/dl Direct Bilirubin (0-0.2) mg/dl AST (13-39) U/L ALT (7-52) U/L Alkaline Phosphatase (34-104) U/L Ammonia (18-72) umol/L Troponin I High Sens (0-14) pg/ml C-Reactive Protein (0-0.5) mg/dl Total Protein (6.0-8.3) gm/dl Albumin (3.4-5.0) gm/dl Globulin (2.5-4.0) gm/dl Albumin/Globulin Ratio (0.9-2) Lipase (11-82) U/L Procalcitonin (0-0.5) ng/ml HCG, Qual (Negative) Urine Color See Comment Urine Appearance Turbid A (Clear) Urine pH Not Reportable Ur Specific [place] 1.017 (1.000-1.030) Urine Protein Not Reportable Urine Glucose (UA) Not Reportable Urine Ketones Not Reportable Urine Blood Not Reportable Urine Nitrite Not Reportable Urine Bilirubin Not Reportable Urine Urobilinogen Not Reportable Ur Leukocyte Esterase Not Reportable Urine RBC >20 H (0-2) /hpf Urine WBC >50 H (0-5) /hpf Ur Epithelial Cells 0-2 (0-2) /hpf Urine Bacteria 4+ H (None Seen) Hyaline Casts Present A (None Presnt) /lpf Urine Osmolality 300 L (500-800) mOsm/kg Ur Random Sodium 13 mmol/L Urine Comment Urine Opiates Screen Neg (Neg) Ur Methadone, Qual Neg (Neg) Urine Fentanyl Screen Neg (Neg) Urine Barbiturates Neg (Neg) Ur Phencyclidine (PCP) Neg (Neg) U Amphetamin/Meth Scrn Neg (Neg) MDMA (Ecstasy) Screen Neg (Neg) U Benzodiazepines Scrn Neg (Neg) Ur Cocaine Metabolite Neg (Neg) U Marijuana (THC) Screen Neg (Neg) Ethyl Alcohol mg/dL (<10.0) mg/dl Administered Medications Lactulose (Lactulose Syrup 30 Gm/45 Ml Udp) 30 gm PO QID ABISAI Stop: 08/04/24 16:59 Last Admin: 07/05/24 17:50 Dose: 30 gm Documented By: MIRELLA Ondansetron HCl (Ondansetron Inj 2 Mg/Ml 2 Ml Vial) 4 mg IV Q8H ABISAI Stop: 08/04/24 20:29 Last Admin: 07/05/24 20:43 Dose: 4 mg Documented By: JAYESH Discontinued Medications Sodium Chloride (Nss) 500 mls @ 999 mls/hr IV .Q31M ONE Stop: 07/05/24 10:31 Last Infusion: 07/05/24 10:59 Dose: Infused Documented By: Admin: 07/05/24 10:21 Dose: 999 mls/hr Documented By: OJ Ceftriaxone Sodium (Rocephin) 2,000 mg in 50 mls @ 100 mls/hr IV NOW STA Stop: 07/05/24 15:25 Last Infusion: 07/05/24 17:18 Dose: Infused Documented By: Admin: 07/05/24 15:09 Dose: 100 mls/hr Documented By: DEVYN Imaging Data Radiologist's Impression: Chest X-Ray 07/05/24 10:00 XR chest 1V portable CLINICAL HISTORY: Chest pain, nonspecific COMPARISON STUDY: None FINDINGS: Heart size and pulmonary vasculature are normal. Inspiration is shallow. There is stranding and patchy opacity at the left lung base. No pleural effusion or pneumothorax. IMPRESSION: Atelectasis versus early pneumonia left lung base. ACT 112: Negative or not required by law. Electronically signed by: Bo Gabriel M.D. 07/05/2024 10:18 AM Abdomen/Pelvis CT 07/05/24 10:[address] WITHOUT CONTRAST CT DOSE: 1753.92 mGy.cm HISTORY: Acute generalized abdominal pain with cirrhosis ams, cirrhosis TECHNIQUE: Multiaxial CT images of the abdomen and pelvis were performed without contrast. A dose lowering technique was utilized adhering to the principles of ALARA. COMPARISON STUDY: 05/24/2024 FINDINGS: Dependent bibasilar atelectasis. Patchy consolidative opacities of the inferior segment lingula and basal left lower lobe. Additional mild bronchoalveolar groundglass densities in the right lung base. 4 mm likely infectious or inflammatory nodule in the right lower lobe. Findings are new from the prior CT. There is no pneumatosis or pneumoperitoneum. Spleen is enlarged measuring up to 14.5 cm in length. Unremarkable unenhanced pancreas, gallbladder and adrenal glands. Cirrhotic liver redemonstrated with diffuse heterogeneity/geographic hepatic steatosis again seen. Unremarkable kidneys without hydronephrosis. Decompressed urinary bladder with mild wall thickening. 12 mm pedunculated fundal fibroid. Mild atherosclerosis of the aorta. Borderline enlarged retroperitoneal and periportal lymph nodes may be secondary to the underlying liver disease. There is wall thickening noted throughout the large bowel which is mostly decompressed and partially decompressed. Terminal ileum is unremarkable. Several loops of small bowel demonstrates circumferential wall thickening and dilation measuring up to 4.6 cm, the dilation is new from the prior study. Transition decompressed loops of small bowel within the right abdomen. No CT evidence of acute appendicitis. Moderate abdominal pelvic ascites again noted along with thickening and mild nodularity of the peritoneal reflections. No acute fracture. Abdominal varicosities are noted. No acute fracture or destructive bone lesion. IMPRESSION: 1. Dilated loops of small bowel within the central abdomen with decompressed loops within the right abdomen suggestive of a small bowel obstruction. 2. Cirrhosis with splenomegaly, abdominal varicosities and moderate abdominal pelvic ascites compatible with portal venous hypertension. 2. Redemonstration of thickening and nodularity of the peritoneal reflections which could be correlated with paracentesis to exclude bacterial peritonitis. Carcinomatosis is considered less likely. 3. Left greater than right bibasilar pneumonia. 4. Additional findings as above. ACT 112: Negative or not required by law. The above report was generated using voice recognition software. It may contain grammatical, syntax or spelling errors. Electronically signed by: Dereck Rodriguez M.D. 07/05/2024 12:[address] 07/05/24 10:49 CT head/brain wo con CLINICAL HISTORY: 38 years-old Female with ams, cirrhosis. Acutely altered mental status with cirrhosis TECHNIQUE: Multiple axial CT images of the head were obtained without contrast. A dose lowering technique was utilized adhering to the principles of ALARA. COMPARISON: None FINDINGS: No acute intracranial hemorrhage, midline shift, intracranial mass, hydrocephalus, territorial ischemia or abnormal extra-axial collection. The calvarium is intact. The paranasal sinuses, mastoid air cells, and middle ear cavities are clear. IMPRESSION: No acute intracranial abnormality. ACT 112: Negative or not required by law. The above report was generated using voice recognition software. It may contain grammatical, syntax or spelling errors. Electronically signed by: Dereck Rordiguez M.D. 07/05/2024 12:07 PM Discharge Plan Visit Data Chief Complaint: Altered Mental Status Stated Complaint: TIRED, SLURRED SPEECH ED Provider: Jean Claude Clements Discharge Problem: Acute hepatic encephalopathy, Ascites, Cirrhosis, Partial small bowel obstruction, Alcohol dependence, Thrombocytopenia, Pneumonia, UTI (urinary tract infection), Elevated LFTs Patient Disposition: Admitted As Inpatient Condition: Serious Discharge Instructions Interventions: ED Discharge Assessment Last Done: 07/05/24 15:14 Discharge Problem: Ascites Qualifiers: Ascites type: other type Qualified Code(s): R18.8 - Other ascites Cirrhosis Qualifiers: Hepatic cirrhosis type: unspecified hepatic cirrhosis Ascites presence: with ascites Qualified Code(s): K74.60 - Unspecified cirrhosis of liver Alcohol dependence Qualifiers: Substance use status: unspecified alcohol-induced disorder Qualified Code(s): F 10.29 - Alcohol dependence with unspecified alcohol-induced disorder Pneumonia Qualifiers: Pneumonia type: due to unspecified organism Laterality: left Lung location: l ower lobe of lung Qualified Code(s): J18.9 - Pneumonia, unspecified organism UTI (urinary tract infection) Qualifiers: Urinary tract infection type: acute cystitis Hematuria presence: without hematuria Qualified Code(s): N30.00 - Acute cystitis without hematuria
[2024-07-05 10:45] LABS: Albumin Globulin Ratio 0.7 (0.9-2); Albumin Level 2.7 gm/dl (3.4-5.0); BUN Creatinine Ratio 12.9 (10-20); Bilirubin Direct 4.6 mg/dl (0-0.2); Bilirubin,Total 10.8 mg/dl (0.2-1.0); Calcium 8.7 mg/dl (8.6-10.3); Globulin 3.9 gm/dl (2.5-4.0); Phosphorus 5.8 mg/dl (2.5-4.9); Potassium 4.7 mmol/L (3.5-5.1); Total Protein 6.6 gm/dl (6.0-8.3)
[2024-07-05 10:47] LABS: INR 1.4 (0.9-1.1); Pregnancy Test, Serum Negative (Negative); Prothrombin Time 14.5 Seconds (9.0-12.0)
--- NOTE | 2024-07-05 10:49 | Electrocardiogram Report ---
Test Reason : Blood Pressure : */* mmHG Vent. Rate : 106 BPM Atrial Rate : 106 BPM P-R Int : 156 ms QRS Dur : 90 ms QT Int : 356 ms P-R-T Axes : 65 82 45 degrees QTcB Int : 472 ms Sinus tachycardia Otherwise normal ECG When compared with ECG of 05-Jun-2024 08:55, No significant change was found Confirmed by Rell Pryor ([id number]) on 07/05/2024 10:49:50 AM Referred By: Confirmed By: Rell Pryor
[2024-07-05 10:51] LABS: Troponin I High Sensitivity 5.9 pg/ml (0-14)
[2024-07-05 10:52] LABS: Anisocytosis Present; Basophils # (auto) 0.02 K/uL (0.00-0.20); Basophils % (auto) 0.1 %; Eosinophils # (auto) 0.05 K/uL (0.00-0.50); Eosinophils % (auto) 0.3 %; Immature Granulocytes % (auto) 0.6 %; Lymphocytes % (auto) 9.6 %; Monocytes # (auto) 1.37 K/uL (0.11-0.59); Monocytes % (auto) 8.7 %; Neutrophils # (auto) 12.66 K/uL (1.40-6.50); Neutrophils % (auto) 80.7 %; Polychromasia 1+
--- NOTE | 2024-07-05 12:08 | CT Scan Report ---
CT head/brain wo con CLINICAL HISTORY: 38 years-old Female with ams, cirrhosis. Acutely altered mental status with cirrho sis TECHNIQUE: Multiple axial CT images of the head were obtained without contrast. A dose lowering tech nique was utilized adhering to the principles of ALARA. COMPARISON: None FINDINGS: No acute intracranial hemorrhage, midline shift, intracranial mass, hydrocephalus, territorial ischem ia or abnormal extra-axial collection. The calvarium is intact. The paranasal sinuses, mastoid air cells, and middle ear cavities are clear . IMPRESSION: No acute intracranial abnormality. ACT 112: Negative or not required by law. The above report was generated using voice recognition software. It may contain grammatical, syntax o r spelling errors. Electronically signed by: Dereck Rodriguez M.D. 07/05/2024 12:07 PM
--- NOTE | 2024-07-05 12:17 | CT Scan Report ---
ABDOMEN AND PELVIS CT WITHOUT CONTRAST CT DOSE: 1753.92 mGy.cm HISTORY: Acute generalized abdominal pain with cirrhosis ams, cirrhosis TECHNIQUE: Multiaxial CT images of the abdomen and pelvis were performed without contrast. A dose lo wering technique was utilized adhering to the principles of ALARA. COMPARISON STUDY: 05/24/2024 FINDINGS: Dependent bibasilar atelectasis. Patchy consolidative opacities of the inferior segment chinedu gula and basal left lower lobe. Additional mild bronchoalveolar groundglass densities in the right kami ng base. 4 mm likely infectious or inflammatory nodule in the right lower lobe. Findings are new from the prior CT. There is no pneumatosis or pneumoperitoneum. Spleen is enlarged measuring up to 14.5 cm in length. Un remarkable unenhanced pancreas, gallbladder and adrenal glands. Cirrhotic liver redemonstrated with d iffuse heterogeneity/geographic hepatic steatosis again seen. Unremarkable kidneys without hydronephrosis. Decompressed urinary bladder with mild wall thickening. 12 mm pedunculated fundal fibroid. Mild atherosclerosis of the aorta. Borderline enlarged retroperito rod and periportal lymph nodes may be secondary to the underlying liver disease. There is wall thick ening noted throughout the large bowel which is mostly decompressed and partially decompressed. Termi nal ileum is unremarkable. Several loops of small bowel demonstrates circumferential wall thickening and dilation measuring up to 4.6 cm, the dilation is new from the prior study. Transition decompresse d loops of small bowel within the right abdomen. No CT evidence of acute appendicitis. Moderate abdominal pelvic ascites again noted along with thicke dru and mild nodularity of the peritoneal reflections. No acute fracture. Abdominal varicosities are noted. No acute fracture or destructive bone lesion. IMPRESSION: 1. Dilated loops of small bowel within the central abdomen with decompressed loops within the right a bdomen suggestive of a small bowel obstruction. 2. Cirrhosis with splenomegaly, abdominal varicosities and moderate abdominal pelvic ascites compatib le with portal venous hypertension. 2. Redemonstration of thickening and nodularity of the peritoneal reflections which could be correlat ed with paracentesis to exclude bacterial peritonitis. Carcinomatosis is considered less likely. 3. Left greater than right bibasilar pneumonia. 4. Additional findings as above. ACT 112: Negative or not required by law. The above report was generated using voice recognition software. It may contain grammatical, syntax o r spelling errors. Electronically signed by: Dereck Rodriguez M.D. 07/05/2024 12:16 PM
--- NOTE | 2024-07-05 13:25 | History & Physical Report ---
Date of Service July 05, 2024 Assessment & Plan (1) Acute hepatic encephalopathy: Plan: Acute hepatic encephalopathy in a 38 yo female with cirrhosis. Eventhough ammonia level is normal will treat with lactulose as normal ammonia does not rule this out. WIll admit to PCU. Obtain paracentesis to assess for spontaneous bacterial peritonitis this was negative. Patient has been having intermittent hematoquezia but this has been stable. will contiue rifaximin and lactulose. MELD 3.0 29 Survival Prediction 30 day 90.6% 60 day 75.1% (2) Pneumonia: Plan: Sepsis will place on rocphine and monitor as possible source will continue to monitor. (3) Ascites: Plan: does not appear to be SBP. History of Present Illness Chief Complaint: confusion Primary Care Provider: Lucía Yin PA-C 38 yo female patient with past medical history of alcohol abuse, cirrhosis, hepatic encephalopathy who present to the ED with father for worsening altered menatl status. Patient has been home for the past couple of days and has presented with slow speech and generalized weakness. Patient is a poor historian as she falls back to sleep during interrogation. Father is at bedside and helps provide history. Also obtain information from Dr. Clements. Father reports patient has had intermittent hematoquezia for the past 6 months. Allergies Allergy/AdvReac Type Severity Reaction Status Date / Time No Known Allergies Allergy Verified 06/28/24 07:21 Home Medications Medication Instructions Recorded Confirmed Type cyanocobalamin (vitamin B-12) 1,000 mcg IM MONTHLY 12/12/23 07/05/24 History 1,000 mcg/mL injection kit docosahexaenoic acid 200 mg 200 mg PO DAILY 12/12/23 07/05/24 History capsule ( DHA) duloxetine 40 mg capsule,delayed 40 mg PO QAM 12/12/23 07/05/24 History release niacin 250 mg tablet 250 mg PO DAILY 12/12/23 07/05/24 History pantoprazole 40 mg tablet,delayed 40 mg PO HS 05/29/24 07/05/24 History release (Protonix) furosemide 20 mg tablet (Lasix) 10 - 20 mg PO DAILY PRN Swelling 06/05/24 07/05/24 History lactulose 10 gram/15 mL oral 10 g (15 mL) PO DAILY 30 days 06/10/24 07/05/24 Rx solution #3,785 mL rifaximin 550 mg tablet (Xifaxan) 550 mg PO BID 30 days #60 tabs 06/10/24 07/05/24 Rx spironolactone 25 mg tablet 25 mg PO DAILY #30 tabs 06/10/24 07/05/24 Rx (Aldactone) folic acid 1 mg tablet 1 mg PO DAILY 07/05/24 07/05/24 History Past Med/Surg History Problem List (Updated 07/06/24 @ 23:39 by Vj Degroot) Anemia UTI (urinary tract infection) (Acute) Pneumonia (Acute) Thrombocytopenia (Acute) Alcohol dependence (Acute) Acute hepatic encephalopathy (Acute) Partial small bowel obstruction (Acute) Hemorrhoids Hypokalemia Cirrhosis (Acute) Pancytopenia Liver fibrosis Ascites (Acute) Abnormal weight loss Abdominal pain Abdominal cramping Elevated LFTs (Acute) Rectal bleeding Medical History Hx of ascites pt unsure Liver fibrosis pt unsure Rectal bleeding ongoing per pt Surgical History Hx of colonoscopy 12/2023 History of esophagogastroduodenoscopy (EGD) 12/2023 Family History Grandfather (Paternal) Diabetes Denies family history of Crohn's disease Colorectal cancer Ulcerative colitis Social History Smoking Status: Current every day smoker Tobacco Type: Cigarettes packs per day: 0.25; Cigarettes Per Day: 1; Second Hand Exposure: No; Do You Dip or Chew Tobacco: No; Tobacco Cessation Education Requested by Patient: No Hx Alcohol Use: Yes Alcohol type: beer Hx Substance Use: No Preferred Language: Danish Communication Ability: Effective Business Systems Consultant Required: No Beliefs That Will Affect Care: None Current Living Situation: Other Current Living Situation Comment: lives iwth fiancee Other Information That Helps Us Care for You: No Feels Safe at Home: Yes Assistive Devices: Contacts Review of Systems Review of Systems: Unobtainable due to cognitive status Physical Exam Constitutional: + ill appearing and + altered mental sta tus Eyes: + scleral abnormality (icteric sclera) ENMT: external ear and nose normal, oropharynx normal Neck: trachea midline, no thyromegaly Respiratory: normal respiratory effort, lungs clear to auscultation Cardiovascular: RRR, no murmur, no edema Gastrointestinal (Abdomen): normal bowel sounds, soft, nontender, no hepatosplenomegaly Musculoskeletal: no cyanosis or clubbing, extremities motor strength 5/5 Skin: no rashes, warm and dry Results & Data Results & Data Vital Signs (Past 12 Hours) Vital Signs Temp Pulse Pulse Resp BP BP Pulse Ox 07/05/24 13:00 113 H 20 122/77 97 07/05/24 11:59 110 H 20 127/78 97 07/05/24 10:36 106 H 16 124/83 100 07/05/24 10:22 106 H 16 100 07/05/24 10:22 105 H 07/05/24 10:17 106 H 07/05/24 09:47 36.2 C L 108 H 18 103/67 96 O2 Del Method 07/05/24 13:00 Room Air 07/05/24 11:59 Room Air 07/05/24 10:36 Room Air 07/05/24 10:22 Room Air 07/05/24 10:22 Room Air 07/05/24 10:17 07/05/24 09:47 Room Air PG Care Time/CCT Total # of Minutes Spent Total Time Spent with Patient: Total time spent is greater than 50% in coordination of care (as documented) at patient's floor/unit and/or counseling patient: Coding Level of Care Code 75118 INT INP/OBS CARE 75MIN Diagnoses Acute hepatic encephalopathy K76.82 Pneumonia J18.9 Laterality: left Lung location: lower lobe of lung Pneumonia type: due to unspecified organism Ascites R18.8 Ascites type: other type Time Spent (min) 75 (2) Pneumonia Laterality: left Lung location: lower lobe of lung Pneumonia type: due to unspecified organism Qualified Code(s): J18.9 - Pneumonia, unspecified organism (3) Ascites Ascites type: other type Qualified Code(s): R18.8 - Other ascites
[2024-07-05] MEDS ORDERED: NON-FORMULARY MEDICATION (Cyanocobalamin (Vitamin B-12) 1,000 mcg/mL kit) IM SCH (13:30)
[2024-07-05 13:38] LABS: Appearance Urine Turbid (Clear); Specific Gravity Urine 1.017 (1.000-1.030)
[2024-07-05 13:44] LABS: Bacteria Urine 4+ (None Seen); RBC Urine >20 /hpf (0-2); WBC Urine >50 /hpf (0-5)
[2024-07-05 13:45] LABS: Epithelial Cell Urine 0-2 /hpf (0-2); Hyaline Casts Urine Present /lpf (None Presnt)
[2024-07-05 13:48] LABS: C Reactive Protein 6.52 mg/dl (0-0.5)
[2024-07-05 14:04] LABS: Amphetamines+Metham, Urine Neg (Neg); Barbiturates, Urine Neg (Neg); Benzodiazepine, Urine Neg (Neg); Cocaine, Urine Neg (Neg); Fentanyl, Urine Neg (Neg); MDMA (Ecstacy), Urine Neg (Neg); Marijuana, Urine Neg (Neg); Methadone, Urine Neg (Neg); Opiate, Urine Neg (Neg); Phencyclidine, Urine Neg (Neg)
[2024-07-05] MEDS: cefTRIAXone SODIUM 2,000 MG/50 ML BAG IV STA (15:09)
[2024-07-05 15:16] LABS: Appearance Peritoneal Fluid Clear; Color Peritoneal Fluid Yellow; RBC Peritoneal Fluid Auto < 2000 /uL; WBC Peritoneal Fluid Auto 103 /ul (0-300)
[2024-07-05 15:41] LABS: Albumin Peritoneal Fluid < 1.5 gm/dl; Total Protein Peritoneal Fluid < 3.0 gm/dl
[2024-07-05 15:44] LABS: Base Excess VBG 2.3 mEq/L; HCO3 VBG 25 mmol/L; Oxygen Saturation VBG 87.2 %; PCO2 VBG 31 mmHg (38-50); PO2 VBG 57 mmHg; pH VBG 7.51 (7.36-7.41)
--- NOTE | 2024-07-05 17:09 | Surgery Consultation ---
Date of Consultation July 05, 2024 Assessment & Plan (1) Cirrhosis: (2) Pancytopenia: (3) Partial small bowel obstruction: Plan of 38-year-old woman with severe cirrhosis and ascites presents with altered mental status. CT scan demonstrates severe ascites and possible small bowel o bstruction. She is not having any abdominal pain or tenderness. She is passing flatus. She is tolerating clear liquids. I do not believe she has a small bowel obstruction. Continue clear liquid diet for now. Will monitor. Suspect that bowel dilatation is due to electrolyte abnormalities and other issues. History of Present Illness Reason for Consultation: Possible small bowel obstruction Requesting Physician: Vj Degroot Attending Physician: Vj Degroot History of Present Illness 38-year-old woman with cirrhosis presents with decompensated liver failure. She was brought to the hospital due to worsening mental status, question of slurred speech. Not many details are known. Total bilirubin has increased from 5-10. She has a significant amount of ascites. She underwent paracentesis in the emergency department and the labs are pending. She states that she is not having abdominal pain, and she is passing flatus. CT scan shows the possibility of a small bowel obstruction Allergies Allergy/AdvReac Type Severity Reaction Status Date / Time No Known Allergies Allergy Verified 06/28/24 07:21 Home Medications Medication Instructions Recorded Confirmed Type cyanocobalamin (vitamin B-12) 1,000 mcg IM MONTHLY 12/12/23 07/05/24 History 1,000 mcg/mL injection kit docosahexaenoic acid 200 mg 200 mg PO DAILY 12/12/23 07/05/24 History capsule ( DHA) duloxetine 40 mg capsule,delayed 40 mg PO QAM 12/12/23 07/05/24 History release niacin 250 mg tablet 250 mg PO DAILY 12/12/23 07/05/24 History pantoprazole 40 mg tablet,delayed 40 mg PO HS 05/29/24 07/05/24 History release (Protonix) furosemide 20 mg tablet (Lasix) 10 - 20 mg PO DAILY PRN Swelling 06/05/24 07/05/24 History lactulose 10 gram/15 mL oral 10 g (15 mL) PO DAILY 30 days 06/10/24 07/05/24 Rx solution #3,785 mL rifaximin 550 mg tablet (Xifaxan) 550 mg PO BID 30 days #60 tabs 04/21/25 05/16/25 Rx spironolactone 25 mg tablet 25 mg PO DAILY #30 tabs 06/10/24 07/05/24 Rx (Aldactone) folic acid 1 mg tablet 1 mg PO DAILY 07/05/24 07/05/24 History Patient History Medical History Hx of ascites pt unsure Liver fibrosis pt unsure Rectal bleeding ongoing per pt Surgical History Hx of colonoscopy 12/2023 History of esophagogastroduodenoscopy (EGD) 12/2023 Family History Grandfather (Paternal) Diabetes Denies family history of Crohn's disease Colorectal cancer Ulcerative colitis Social History Smoking Status: Current every day smoker Tobacco Type: Cigarettes packs per day: 0.25; Cigarettes Per Day: 1; Second Hand Exposure: No; Do You Dip or Chew Tobacco: No; Tobacco Cessation Education Requested by Patient: No Hx Alcohol Use: Yes Alcohol type: beer Hx Substance Use: No Preferred Language: Macedonian Communication Ability: Effective General Manager Food Required: No Beliefs That Will Affect Care: None Current Living Situation: Other Current Living Situation Comment: lives [facility] Other Information That Helps Us Care for You: No Feels Safe at Home: Yes Assistive Devices: Contacts Review of Systems Review of Systems: All systems reviewed & are unremarkable except as noted in HPI & below Physical Exam Constitutional: + ill appearing, + thin and + lethargic Eyes: scleral icterus Neck: trachea midline, no thyromegaly Respiratory: normal respiratory effort; no respiratory distress Cardiovascular: Rate/Rhythm: regular rate and regular rhythm Gastrointestinal (Abdomen): Inspection/Auscultation: + abdomen distended Percussion/Palpation: abdomen soft; abdomen nontender, no guarding and abdomen not rigid Psychiatric: Orientation: alert and cooperative Results & Data Vital Signs (Past 12 Hours) Vital Signs Temp Pulse Pulse Resp BP BP BP 07/05/24 15:25 36.8 C 113 H 18 114/73 07/05/24 14:35 113 H 07/05/24 14:07 111 H 16 07/05/24 14:01 111 H 18 116/74 07/05/24 13:00 113 H 20 122/77 07/05/24 11:59 110 H 20 127/78 07/05/24 10:36 106 H 16 124/83 07/05/24 10:22 106 H 16 07/05/24 10:22 07/05/24 10:17 106 H 07/05/24 09:47 36.2 C L 108 H 18 103/67 Pulse Ox O2 Del Method 07/05/24 15:25 96 Room Air 07/05/24 14:35 07/05/24 14:07 96 Room Air 07/05/24 14:01 96 Room Air 07/05/24 13:00 97 Room Air 07/05/24 11:59 97 Room Air 07/05/24 10:36 100 Room Air 07/05/24 10:22 100 Room Air 07/05/24 10:22 105 H Room Air 07/05/24 10:17 07/05/24 09:47 96 Room Air Laboratory Results 07/05/24 07/05/24 07/05/24 Range/Units 15:33 14:44 12:52 WBC (4.8-10.8) K/ul RBC (4.20-5.40) M/uL Hgb (12.0-16.0) g/dl Hct (37.0-47.0) % MCV (80.0-100.0) fL MCH (25.0-34.0) pg MCHC (32.0-36.0) g/dL RDW Std Deviation (36.4-46.3) fL RDW Coeff of Jess[place] (11.5-14.5) % Plt Count (130-400) K/uL MPV (9.4-12.4) fL Immature Gran % (Auto) % Neut % (Auto) % Lymph % (Auto) % Gove % (Auto) % Eos % (Auto) % Baso % (Auto) % Neut # (Auto) (1.40-6.50) K/uL Lymph # (Auto) (1.20-3.40) K/uL Gove # (Auto) (0.11-0.59) K/uL Eos # (Auto) (0.00-0.50) K/uL Baso # (Auto) (0.00-0.20) K/uL Immature Gran # (Auto) (0.01-0.20) K/uL Polychromasia Anisocytosis PT (9.0-12.0) Seconds INR (0.9-1.1) VBG pH 7.51 H (7.36-7.41) VBG pCO2 31 L (38-50) mmHg VBG pO2 57 mmHg VBG HCO3 25 mmol/L VBG O2 Saturation 87.2 % VBG Base Excess 2.3 mEq/L Sodium (136-145) mmol/L Potassium (3.5-5.1) mmol/L Chloride (98-107) mmol/L Carbon Dioxide (21-32) mmol/L Anion Gap (3-11) BUN (6-23) mg/dl Creatinine (0.6-1.2) mg/dl Est Cr Clr Drug Dosing ml/min eGFR BUN/Creatinine Ratio (10-20) Glucose (70-99(Fasting)) mg/dl POC Glucose (70-99) mg/dl Osmolality (280-300) mOsm/kg Lactate (0.4-2.0) mmol/L Calcium (8.6-10.3) mg/dl Phosphorus (2.5-4.9) mg/dl Magnesium (1.7-2.4) mg/dl Total Bilirubin (0.2-1.0) mg/dl Direct Bilirubin (0-0.2) mg/dl AST (13-39) U/L ALT (7-52) U/L Alkaline Phosphatase (34-104) U/L Ammonia (18-72) umol/L Troponin I High Sens (0-14) pg/ml C-Reactive Protein (0-0.5) mg/dl Total Protein (6.0-8.3) gm/dl Albumin (3.4-5.0) gm/dl Globulin (2.5-4.0) gm/dl Albumin/Globulin Ratio (0.9-2) Lipase (11-82) U/L Procalcitonin (0-0.5) ng/ml HCG, Qual (Negative) Urine Color See Comment Urine Appearance Turbid A (Clear) Urine pH Not Reportable Ur Specific [place] 1.017 (1.000-1.030) Urine Protein Not Reportable Urine Glucose (UA) Not Reportable Urine Ketones Not Reportable Urine Blood Not Reportable Urine Nitrite Not Reportable Urine Bilirubin Not Reportable Urine Urobilinogen Not Reportable Ur Leukocyte Esterase Not Reportable Urine RBC >20 H (0-2) /hpf Urine WBC >50 H (0-5) /hpf Ur Epithelial Cells 0-2 (0-2) /hpf Urine Bacteria 4+ H (None Seen) Hyaline Casts Present A (None Presnt) /lpf Urine Osmolality 300 L (500-800) mOsm/kg Ur Random Sodium 13 mmol/L Urine Comment Fluid Neutrophils % Pending Fluid Comment Peritoneal Color Yellow Peritoneal Appearance Clear Peritoneal WBC (Auto) 103 (0-300) /ul Peritoneal RBC (Auto) < 2000 /uL Peritoneal Tot Protein < 3.0 gm/dl Peritoneal Albumin < 1.5 gm/dl Urine Opiates Screen Neg (Neg) Ur Methadone, Qual Neg (Neg) Urine Fentanyl Screen Neg (Neg) Urine Barbiturates Neg (Neg) Ur Phencyclidine (PCP) Neg (Neg) U Amphetamin/Meth Scrn Neg (Neg) MDMA (Ecstasy) Screen Neg (Neg) U Benzodiazepines Scrn Neg (Neg) Ur Cocaine Metabolite Neg (Neg) U Marijuana (THC) Screen Neg (Neg) Ethyl Alcohol mg/dL (<10.0) mg/dl 07/05/24 07/05/24 07/05/24 Range/Units 12:41 12:37 10:15 WBC (4.8-10.8) K/ul RBC (4.20-5.40) M/uL Hgb (12.0-16.0) g/dl Hct (37.0-47.0) % MCV (80.0-100.0) fL MCH (25.0-34.0) pg MCHC (32.0-36.0) g/dL RDW Std Deviation (36.4-46.3) fL RDW Coeff of [place] (11.5-14.5) % Plt Count (130-400) K/uL MPV (9.4-12.4) fL Immature Gran % (Auto) % Neut % (Auto) % Lymph % (Auto) % [place] % (Auto) % Eos % (Auto) % Baso % (Auto) % Neut # (Auto) (1.40-6.50) K/uL Lymph # (Auto) (1.20-3.40) K/uL [place] # (Auto) (0.11-0.59) K/uL Eos # (Auto) (0.00-0.50) K/uL Baso # (Auto) (0.00-0.20) K/uL Immature Gran # (Auto) (0.01-0.20) K/uL Polychromasia Anisocytosis PT (9.0-12.0) Seconds INR (0.9-1.1) VBG pH (7.36-7.41) VBG pCO2 (38-50) mmHg VBG pO2 mmHg VBG HCO3 mmol/L VBG O2 Saturation % VBG Base Excess mEq/L Sodium (136-145) mmol/L Potassium (3.5-5.1) mmol/L Chloride (98-107) mmol/L Carbon Dioxide (21-32) mmol/L Anion Gap (3-11) BUN (6-23) mg/dl Creatinine (0.6-1.2) mg/dl Est Cr Clr Drug Dosing ml/min eGFR BUN/Creatinine Ratio (10-20) Glucose (70-99(Fasting)) mg/dl POC Glucose 122 H (70-99) mg/dl Osmolality (280-300) mOsm/kg Lactate 1.7 (0.4-2.0) mmol/L Calcium (8.6-10.3) mg/dl Phosphorus (2.5-4.9) mg/dl Magnesium (1.7-2.4) mg/dl Total Bilirubin (0.2-1.0) mg/dl Direct Bilirubin (0-0.2) mg/dl AST (13-39) U/L ALT (7-52) U/L Alkaline Phosphatase (34-104) U/L Ammonia (18-72) umol/L Troponin I High Sens (0-14) pg/ml C-Reactive Protein (0-0.5) mg/dl Total Protein (6.0-8.3) gm/dl Albumin (3.4-5.0) gm/dl Globulin (2.5-4.0) gm/dl Albumin/Globulin Ratio (0.9-2) Lipase (11-82) U/L Procalcitonin 1.34 H (0-0.5) ng/ml HCG, Qual (Negative) Urine Color Urine Appearance (Clear) Urine pH Ur Specific [place] (1.000-1.030) Urine Protein Urine Glucose (UA) Urine Ketones Urine Blood Urine Nitrite Urine Bilirubin Urine Urobilinogen Ur Leukocyte Esterase Urine RBC (0-2) /hpf Urine WBC (0-5) /hpf Ur Epithelial Cells (0-2) /hpf Urine Bacteria (None Seen) Hyaline Casts (None Presnt) /lpf Urine Osmolality (500-800) mOsm/kg Ur Random Sodium mmol/L Urine Comment Fluid Neutrophils % Fluid Comment Peritoneal Color Peritoneal Appearance Peritoneal WBC (Auto) (0-300) /ul Peritoneal RBC (Auto) /uL Peritoneal Tot Protein gm/dl Peritoneal Albumin gm/dl Urine Opiates Screen (Neg) Ur Methadone, Qual (Neg) Urine Fentanyl Screen (Neg) Urine Barbiturates (Neg) Ur Phencyclidine (PCP) (Neg) U Amphetamin/Meth Scrn (Neg) MDMA (Ecstasy) Screen (Neg) U Benzodiazepines Scrn (Neg) Ur Cocaine Metabolite (Neg) U Marijuana (THC) Screen (Neg) Ethyl Alcohol mg/dL (<10.0) mg/dl 07/05/24 Range/Units 10:07 WBC 15.70 H (4.8-10.8) K/ul RBC 2.59 L (4.20-5.40) M/uL Hgb 8.5 L (12.0-16.0) g/dl Hct 25.8 L (37.0-47.0) % MCV 99.6 (80.0-100.0) fL MCH 32.8 (25.0-34.0) pg MCHC 32.9 (32.0-36.0) g/dL RDW Std Deviation 78.0 H (36.4-46.3) fL RDW Coeff of [place] 21.1 H (11.5-14.5) % Plt Count 96 L (130-400) K/uL MPV 10.2 (9.4-12.4) fL Immature Gran % (Auto) 0.6 % Neut % (Auto) 80.7 % Lymph % (Auto) 9.6 % Gove % (Auto) 8.7 % Eos % (Auto) 0.3 % Baso % (Auto) 0.1 % Neut # (Auto) 12.66 H (1.40-6.50) K/uL Lymph # (Auto) 1.50 (1.20-3.40) K/uL [place] # (Auto) 1.37 H (0.11-0.59) K/uL Eos # (Auto) 0.05 (0.00-0.50) K/uL Baso # (Auto) 0.02 (0.00-0.20) K/uL Immature Gran # (Auto) 0.10 (0.01-0.20) K/uL Polychromasia 1+ Anisocytosis Present PT 14.5 H (9.0-12.0) Seconds INR 1.4 H (0.9-1.1) VBG pH (7.36-7.41) VBG pCO2 (38-50) mmHg VBG pO2 mmHg VBG HCO3 mmol/L VBG O2 Saturation % VBG Base Excess mEq/L Sodium 123 L (136-145) mmol/L Potassium 4.7 (3.5-5.1) mmol/L Chloride 87 L (98-107) mmol/L Carbon Dioxide 25 (21-32) mmol/L Anion Gap 11 (3-11) BUN 19 (6-23) mg/dl Creatinine 1.47 H (0.6-1.2) mg/dl Est Cr Clr Drug Dosing 58.0 ml/min eGFR 46.58 BUN/Creatinine Ratio 12.9 (10-20) Glucose 112 H (70-99(Fasting)) mg/dl POC Glucose (70-99) mg/dl Osmolality 263 L (280-300) mOsm/kg Lactate (0.4-2.0) mmol/L Calcium 8.7 (8.6-10.3) mg/dl Phosphorus 5.8 H (2.5-4.9) mg/dl Magnesium 2.0 (1.7-2.4) mg/dl Total Bilirubin 10.8 H (0.2-1.0) mg/dl Direct Bilirubin 4.6 H (0-0.2) mg/dl AST 44 H (13-39) U/L ALT 20 (7-52) U/L Alkaline Phosphatase 125 H (34-104) U/L Ammonia 65.0 (18-72) umol/L Troponin I High Sens 5.9 (0-14) pg/ml C-Reactive Protein 6.52 H (0-0.5) mg/dl Total Protein 6.6 (6.0-8.3) gm/dl Albumin 2.7 L (3.4-5.0) gm/dl Globulin 3.9 (2.5-4.0) gm/dl Albumin/Globulin Ratio 0.7 L (0.9-2) Lipase 5 L (11-82) U/L Procalcitonin (0-0.5) ng/ml HCG, Qual Negative (Negative) Urine Color Urine Appearance (Clear) Urine pH Ur Specific [place] (1.000-1.030) Urine Protein Urine Glucose (UA) Urine Ketones Urine Blood Urine Nitrite Urine Bilirubin Urine Urobilinogen Ur Leukocyte Esterase Urine RBC (0-2) /hpf Urine WBC (0-5) /hpf Ur Epithelial Cells (0-2) /hpf Urine Bacteria (None Seen) Hyaline Casts (None Presnt) /lpf Urine Osmolality (500-800) mOsm/kg Ur Random Sodium mmol/L Urine Comment Fluid Neutrophils % Fluid Comment Peritoneal Color Peritoneal Appearance Peritoneal WBC (Auto) (0-300) /ul Peritoneal RBC (Auto) /uL Peritoneal Tot Protein gm/dl Peritoneal Albumin gm/dl Urine Opiates Screen (Neg) Ur Methadone, Qual (Neg) Urine Fentanyl Screen (Neg) Urine Barbiturates (Neg) Ur Phencyclidine (PCP) (Neg) U Amphetamin/Meth Scrn (Neg) MDMA (Ecstasy) Screen (Neg) U Benzodiazepines Scrn (Neg) Ur Cocaine Metabolite (Neg) U Marijuana (THC) Screen (Neg) Ethyl Alcohol mg/dL < 10.0 (<10.0) mg/dl s/p right Diagnostic Findings BDOMEN AND PELVIS CT WITHOUT CONTRAST CT DOSE: 1753.92 mGy.cm HISTORY: Acute generalized abdominal pain with cirrhosis ams, cirrhosis TECHNIQUE: Multiaxial CT images of the abdomen and pelvis were performed without contrast. A dose lowering technique was utilized adhering to the principles of ALARA. COMPARISON STUDY: 05/24/2024 FINDINGS: Dependent bibasilar atelectasis. Patchy consolidative opacities of the inferior segment lingula and basal left lower lobe. Additional mild bronchoalveolar groundglass densities in the right lung base. 4 mm likely infectious or inflammatory nodule in the right lower lobe. Findings are new from the prior CT. There is no pneumatosis or pneumoperitoneum. Spleen is enlarged measuring up to 14.5 cm in length. Unremarkable unenhanced pancreas, gallbladder and adrenal glands. Cirrhotic liver redemonstrated with diffuse heterogeneity/geographic hepatic steatosis again seen. Unremarkable kidneys without hydronephrosis. Decompressed urinary bladder with mild wall thickening. 12 mm pedunculated fundal fibroid. Mild atherosclerosis of the aorta. Borderline enlarged retroperitoneal and periportal lymph nodes may be secondary to the underlying liver disease. There is wall thickening noted throughout the large bowel which is mostly decompressed and partially decompressed. Terminal ileum is unremarkable. Several loops of small bowel demonstrates circumferential wall thickening and dilation measuring up to 4.6 cm, the dilation is new from the prior study. Transition decompressed loops of small bowel within the right abdomen. No CT evidence of acute appendicitis. Moderate abdominal pelvic ascites again noted along with thickening and mild nodularity of the peritoneal reflections. No acute fracture. Abdominal varicosities are noted. No acute fracture or destructive bone lesion. IMPRESSION: 1. Dilated loops of small bowel within the central abdomen with decompressed loops within the right abdomen suggestive of a small bowel obstruction. 2. Cirrhosis with splenomegaly, abdominal varicosities and moderate abdominal pelvic ascites compatible with portal venous hypertension. 2. Redemonstration of thickening and nodularity of the peritoneal reflections which could be correlated with paracentesis to exclude bacterial peritonitis. Carcinomatosis is considered less likely. 3. Left greater than right bibasilar pneumonia. 4. Additional findings as above. ACT 112: Negative or not required by law. The above report was generated using voice recognition software. It may contain grammatical, syntax or spelling errors. Electronically signed by: Dereck Rodriguez M.D. 07/05/2024 12:16 PM (1) Cirrhosis Hepatic cirrhosis type: alcoholic cirrhosis Ascites presence: with ascites Qualified Code(s): K70.31 - Alcoholic cirrhosis of liver with ascites
[2024-07-05] MEDS: LACTULOSE SYRUP 30 GM/45 ML UDP PO SCH (17:50)
[2024-07-05] MEDS: ONDANSETRON INJ 2 MG/ML 2 ML VIAL IV SCH (20:43)
[2024-07-05] MEDS: PANTOprazole 40 MG TAB PO SCH (22:14)
[2024-07-05] MEDS: rifAXIMin 550 MG TABLET PO SCH (22:15)
[2024-07-06] MEDS: ALBUMIN 25% 25 GM/100 ML VIAL IV ONE (00:11)
[2024-07-06] MEDS: LACTATED RINGER'S 1,000 ML IV SCH (01:53)
[2024-07-06 02:54] LABS: Base Excess VBG 2.3 mEq/L; HCO3 VBG 25 mmol/L; Oxygen Saturation VBG 87.9 %; PCO2 VBG 31 mmHg (38-50); PO2 VBG 57 mmHg; pH VBG 7.51 (7.36-7.41)
[2024-07-06] MEDS: LACTATED RINGER'S 500 ML IV ONE (02:55)
[2024-07-06 03:15] LABS: Albumin Globulin Ratio 0.9 (0.9-2); Albumin Level 2.7 gm/dl (3.4-5.0); BUN Creatinine Ratio 15.5 (10-20); Bilirubin,Total 8.1 mg/dl (0.2-1.0); C Reactive Protein 5.26 mg/dl (0-0.5); Calcium 8.5 mg/dl (8.6-10.3); Creatinine Clr Calc Pharmacy 43.1 ml/min; Globulin 3.1 gm/dl (2.5-4.0); Potassium 4.9 mmol/L (3.5-5.1); Total Protein 5.8 gm/dl (6.0-8.3)
[2024-07-06 03:23] LABS: Hematocrit (blood only) 20.4 % (37.0-47.0); Hemoglobin 6.9 g/dl (12.0-16.0); Mean Corpuscular Hemoglobin 33.3 pg (25.0-34.0); Mean Corpuscular Hgb Conc 33.8 g/dL (32.0-36.0); Mean Corpuscular Volume 98.6 fL (80.0-100.0); Mean Platelet Volume 9.5 fL (9.4-12.4); Platelet Count 77 K/uL (130-400); RDW Standard Deviation 79.7 fL (36.4-46.3); Red Blood Count 2.07 M/uL (4.20-5.40); White Blood Count 15.11 K/ul (4.8-10.8)
[2024-07-06] MEDS ORDERED: SODIUM CHLORIDE 0.9% 100 ML IV PRN ×2 (03:24→08:55)
[2024-07-06] MEDS: DOXYCYCLINE HYCLATE 100 MG in DEXTROSE 5% MINI-B 100 ML IV SCH (03:30)
[2024-07-06 03:42] LABS: Anisocytosis Present; Basophils # (auto) 0.01 K/uL (0.00-0.20); Basophils % (auto) 0.1 %; Eosinophils % (auto) 0.7 %; Immature Granulocytes # (auto) 0.06 K/uL (0.01-0.20); Immature Granulocytes % (auto) 0.4 %; Lymphocytes # (auto) 0.68 K/uL (1.20-3.40); Lymphocytes % (auto) 4.6 %; Monocytes # (auto) 1.32 K/uL (0.11-0.59); Neutrophils # (auto) 12.55 K/uL (1.40-6.50); Neutrophils % (auto) 85.2 %; Platelet Estimate Decreased (Normal); Polychromasia 2+; Tear Drop Cells 1+; Toxic Vacuolation 1+
[2024-07-06] MEDS: PANTOprazole 80 MG in DEXTROSE 5% 100 ML IV STA (04:01)
--- NOTE | 2024-07-06 04:18 | Communication Note ---
Date of Service: July 06, 2024 Notified by nursing staff of clinical deterioration/poor p.o. Seen at bedside at 11 PM, 2 AM, 4 AM and serial reassessments. History summary: Lenora is a 38-year-old female with past medical history of alcohol abuse, cirrhosis, hepatic encephalopathy, ascites with regular therapeutic paracentesis, medic easier due to polyps and hemorrhoids w/ no known history of varices who presented to the ER 07/05 with confusion, slurred speech, generalized weakness for the last several days. EGD 12/2023: Benign esophageal stenosis, gastritis, normal duodenum. No varices were noted at that time. On ERevaluation she was found to have a leukocytosis, normal lactate, normal ammonia, and DAJUAN. Her urine was overtly infected appearing and in catheter was very dark. CThead was without acute findings. CTA/P showed dilated loops of small bowel within the central abdomen with decompressed loops within the right abdomen suggestive of small bowel obstruction. Cirrhosis with splenomegaly, abdominal varicosities, and pelvic ascites compatible with portal venous hypertension was noted. Thickening and nodularity of the peritoneal reflections were noted which can be seen with SBP. Left greater than right bibasilar pneumonia was noted. On provider reexamination patient is febrile, warm, sweaty and appears ill. Normotensive, sinus tach ~120s. She is w/ worsening encephalpathy and is not able to offer meaningful history. She is tachypneic and tachycardic. Mucous membranes are very dry, abdomen is distended but without overt rebound/guarding. Patient received albumin earlier in the evening for tachycardia and volume contraction without hypotension. Minimal UOP. Due to clinical deterioration and ill appearance repeat lactate, VBG was obtained along with morning labs. This shows a worsening DAJUAN, downtrending hemoglobin to 6.9, and rapidly rising ammonia. BUN slightly but not markedly elevated. 1. Sepsis. Patient with evidence of bilateral pneumonia, UTI, and potential SBP on admission Patient is at risk for aspiration pneumonia w SBP and bibasilar infiltrates, has an infected UTI, and also is at risk for SBP. PCT elevated consistent with infection. CT with findings concerning for SBP, and therapeutic/diagnostic tap while in the ER did have marked elevation in white blood cell counts although no organisms seen on Gram stain. Abdomen is without involuntary guarding, pain difficult to assess due to mentation. Given significant burden of illness empiric therapy was expanded to ertapenem and pna coverage expanded w/ doxy. MRSA nares pending. Patient was initially ordered additional LR bolus and maintenance fluids, this was paused and switched to blood when repeat labs showed anemia. Can continue crystalloid resuscitation post blood transfusion monitor closely for signs of volume overload. 2. Acute on chronic anemia Hemoglobin decreased from 8.5-6.9. No clinical bleeding. Discussed with family, has had hematochezia but no increased bleeding and no melena to their knowledge. She does not have esophageal varices or gastric ulcers. May be delusional from fluids however given significant illness and risk we will cover with PPI bolus and twice daily therapy pending trend and clinical reassessment. Abx as above. 1 unit for transfusion ordered 1 unit kept on hold. Patient was pending further workup of pancytopenia but also with bone marrow biopsy to rule out underlying malignancy and had been recommended the previous month received irradiated blood products. Reviewed unit ordered. Did call patient's father Zak and updated twice overnight. Phone consent for blood transfusion was also obtained from patient's father Zak as patient is acutely encephalopathic and not able to understand the risk/benefits of this at time of bedside visit. He also clarified that care is DNR/benign event of a cardiac or respiratory arrest however if she were having declining respiratory function for potentially reversible causes such as pneumonia would want a trial of intubation. Would be okay with ICU level of care if she were to deteriorate. On reassessment she remains normotensive, and without hypoxia on room air. Follow urine output.
[2024-07-06] MEDS: PANTOprazole 40 MG/10 ML SYR IV ONE (04:23)
[2024-07-06] MEDS: ERTAPENEM 1000MG 1,000 MG/10 ML SYR IV SCH (04:58)
[2024-07-06 07:05] LABS: Lymphocytes, Fluid 11 %; Mono,Macrophage,Mesothelial 65 %; Neutrophils, Fluid 25 %
[2024-07-06] MEDS: ACETAMINOPHEN 1,000 MG/100 ML VIAL IV PRN (07:30)
[2024-07-06] MEDS: LACTULOSE 200GM/700ML WTR ENEMA PR SCH (07:31)
[2024-07-06] MEDS: NIACIN 500 MG TAB PO SCH (08:50)
[2024-07-06] MEDS: PANTOprazole 40 MG/10 ML SYR IV SCH (08:50)
[2024-07-06] MEDS: DULoxetine HCL 20 MG CAP PO SCH (08:50)
[2024-07-06 10:07] LABS: INR 1.4 (0.9-1.1); Prothrombin Time 14.8 Seconds (9.0-12.0)
[2024-07-06] MEDS: LACTULOSE SYRUP 30 GM/45 ML UDP PO SCH (10:33)
[2024-07-06] MEDS ORDERED: STAT IV/IM STA (10:36)
[2024-07-06] MEDS: OCTREOTIDE ACETATE 500 MCG in SODIUM CHLORIDE 0.9% 100 ML IV SCH (11:18)
[2024-07-06] MEDS: OCTREOTIDE ACETATE 50 MCG in SYRINGE 9.5 ML IV STA (11:18)
--- NOTE | 2024-07-06 11:42 | Gastrointestinal Consultation ---
Date of Consultation July 06, 2024 Assessment & Plan (1) Acute hepatic encephalopathy: She has hepatic encephalopathy likely related to pneumonia and/or UTI. Paracentesis performed and not consistent with SBP. She is not taking oral meds for encephalopathy. Can give it through NG tube as recent EGD did not reveal varices. Can also give rectal lactulose. Hemorrhoidal bleeding. Banding can be considered by endoscopist who performs banding. History of Present Illness Reason for Consultation: hepatic encephalopathy and bleeding Attending Physician: Vj Degroot History of Present Illness 38 year old female with known liver disease felt related to alcohol admitted with confusion that became worse yesterday. She does have chronic rectal bleeding and had EGD last year that showed no varices and colonoscopy a few weeks ago that showed a couple of "fairly large polyps" that were removed as well as internal hemorrhoids. She did go to [facility] to see colorectal surgery and they told her they wouldn't operate because her hemorrhoids were "from her liver". Patient is unable to give me history as she is non re sponsive. Dad says she has done "pretty well" with not drinking but she has "had a few". Allergies Allergy/AdvReac Type Severity Reaction Status Date / Time No Known Allergies Allergy Verified 06/28/24 07:21 Home Medications Medication Instructions Recorded Confirmed Type cyanocobalamin (vitamin B-12) 1,000 mcg IM MONTHLY 12/12/23 07/05/24 History 1,000 mcg/mL injection kit docosahexaenoic acid 200 mg 200 mg PO DAILY 12/12/23 07/05/24 History capsule ( DHA) duloxetine 40 mg capsule,delayed 40 mg PO QAM 12/12/23 07/05/24 History release niacin 250 mg tablet 250 mg PO DAILY 12/12/23 07/05/24 History pantoprazole 40 mg tablet,delayed 40 mg PO HS 05/29/24 07/05/24 History release (Protonix) furosemide 20 mg tablet (Lasix) 10 - 20 mg PO DAILY PRN Swelling 06/05/24 07/05/24 History lactulose 10 gram/15 mL oral 10 g (15 mL) PO DAILY 30 days 06/10/24 07/05/24 Rx solution #3,785 mL rifaximin 550 mg tablet (Xifaxan) 550 mg PO BID 30 days #60 tabs 06/10/24 07/05/24 Rx spironolactone 25 mg tablet 25 mg PO DAILY #30 tabs 06/10/24 07/05/24 Rx (Aldactone) folic acid 1 mg tablet 1 mg PO DAILY 07/05/24 07/05/24 History Patient History Medical History Hx of ascites pt unsure Liver fibrosis pt unsure Rectal bleeding ongoing per pt Surgical History Hx of colonoscopy 12/2023 History of esophagogastroduodenoscopy (EGD) 12/2023 Family History Grandfather (Paternal) Diabetes Denies family history of Crohn's disease Colorectal cancer Ulcerative colitis Social History Smoking Status: Current every day smoker Tobacco Type: Cigarettes packs per day: 0.25; Cigarettes Per Day: 1; Second Hand Exposure: No; Do You Dip or Chew Tobacco: No; Tobacco Cessation Education Requested by Patient: No Hx Alcohol Use: Yes Alcohol type: beer Hx Substance Use: No Preferred Language: Croatian Communication Ability: Effective Still Operator Required: No Beliefs That Will Affect Care: None Current Living Situation: Other Current Living Situation Comment: lives iw fiancee Other Information That Helps Us Care for You: No Feels Safe at Home: Yes Assistive Devices: Contacts Review of Systems Review of Systems: Unobtainable due to cognitive status Physical Exam Physical Exam: Icteric, non responsive Neck: trachea midline, no thyromegaly Respiratory: normal respiratory effort, lungs clear to auscultation Cardiovascular: RRR, no murmur, no edema Gastrointestinal (Abdomen): Inspection/Auscultation: + abdomen distended Results & Data Vital Signs (Past 12 Hours) Vital Signs Temp Pulse Pulse Resp BP BP Pulse Ox 07/06/24 11:32 36.7 C 112 H 16 128/77 96 07/06/24 11:08 36.8 C 113 H 19 117/72 96 07/06/24 08:47 36.7 C 115 H 16 124/75 94 07/06/24 07:43 37.2 C 122 H 16 122/76 93 07/06/24 06:43 37.5 C 124 H 24 126/71 94 07/06/24 06:13 36.8 C 125 H 22 124/64 93 07/06/24 05:58 36.3 C L 124 H 22 128/76 92 07/06/24 05:41 37.2 C 122 H 23 124/64 94 07/06/24 04:10 124 H 121/51 L 93 07/06/24 02:15 37.7 C H 07/06/24 00:00 36.8 C 114 H 18 105/67 97 O2 Del Method 07/06/24 11:32 07/06/24 11:08 07/06/24 08:47 07/06/24 07:43 07/06/24 06:43 07/06/24 06:13 07/06/24 05:58 07/06/24 05:41 07/06/24 04:10 Room Air 07/06/24 02:15 07/06/24 00:00 Room Air Laboratory Results 07/06/24 07/06/24 07/06/24 Range/Units 08:59 03:10 02:42 WBC 15.11 H (4.8-10.8) K/ul RBC 2.07 L (4.20-5.40) M/uL Hgb 6.9 L* (12.0-16.0) g/dl Hct 20.4 L* (37.0-47.0) % MCV 98.6 (80.0-100.0) fL MCH 33.3 (25.0-34.0) pg MCHC 33.8 (32.0-36.0) g/dL RDW Std Deviation 79.7 H (36.4-46.3) fL RDW Coeff of [place] 22.0 H (11.5-14.5) % Plt Count 77 L (130-400) K/uL MPV 9.5 (9.4-12.4) fL Immature Gran % (Auto) 0.4 % Neut % (Auto) 85.2 % Lymph % (Auto) 4.6 % Camp % (Auto) 9.0 % Eos % (Auto) 0.7 % Baso % (Auto) 0.1 % Neut # (Auto) 12.55 H (1.40-6.50) K/uL Lymph # (Auto) 0.68 L (1.20-3.40) K/uL Camp # (Auto) 1.32 H (0.11-0.59) K/uL Eos # (Auto) 0.10 (0.00-0.50) K/uL Baso # (Auto) 0.01 (0.00-0.20) K/uL Immature Gran # (Auto) 0.06 (0.01-0.20) K/uL Toxic Vacuolation 1+ Platelet Estimate Decreased L (Normal) Polychromasia 2+ Anisocytosis Present Tear Drop Cells 1+ PT 14.8 H (9.0-12.0) Seconds INR 1.4 H (0.9-1.1) VBG pH 7.51 H (7.36-7.41) VBG pCO2 31 L (38-50) mmHg VBG pO2 57 mmHg VBG HCO3 25 mmol/L VBG O2 Saturation 87.9 % VBG Base Excess 2.3 mEq/L Sodium 124 L (136-145) mmol/L Potassium 4.9 (3.5-5.1) mmol/L Chloride 89 L (98-107) mmol/L Carbon Dioxide 24 (21-32) mmol/L Anion Gap 11 (3-11) BUN 29 H (6-23) mg/dl Creatinine 1.87 H D (0.6-1.2) mg/dl Est Cr Clr Drug Dosing 43.1 ml/min eGFR 34.89 BUN/Creatinine Ratio 15.5 (10-20) Glucose 93 (70-99(Fasting)) mg/dl Osmolality (280-300) mOsm/kg Lactate 1.7 (0.4-2.0) mmol/L Calcium 8.5 L (8.6-10.3) mg/dl Total Bilirubin 8.1 H (0.2-1.0) mg/dl AST 34 (13-39) U/L ALT 15 (7-52) U/L Alkaline Phosphatase 96 (34-104) U/L Ammonia 123.0 H (18-72) umol/L C-Reactive Protein 5.26 H (0-0.5) mg/dl Total Protein 5.8 L (6.0-8.3) gm/dl Albumin 2.7 L (3.4-5.0) gm/dl Globulin 3.1 (2.5-4.0) gm/dl Albumin/Globulin Ratio 0.9 (0.9-2) Procalcitonin (0-0.5) ng/ml Urine Color Urine Appearance (Clear) Urine pH Ur Specific [place] (1.000-1.030) Urine Protein Urine Glucose (UA) Urine Ketones Urine Blood Urine Nitrite Urine Bilirubin Urine Urobilinogen Ur Leukocyte Esterase Urine RBC (0-2) /hpf Urine WBC (0-5) /hpf Ur Epithelial Cells (0-2) /hpf Urine Bacteria (None Seen) Hyaline Casts (None Presnt) /lpf Urine Osmolality (500-800) mOsm/kg Ur Random Sodium mmol/L Urine Comment Fluid Neutrophils % % Fluid Lymphocytes % % Fluid Meso/Macro/Camp % % Fluid Slide Review Fluid Comment Peritoneal Color Peritoneal Appearance Peritoneal WBC (Auto) (0-300) /ul Peritoneal RBC (Auto) /uL Peritoneal Tot Protein gm/dl Peritoneal Albumin gm/dl Nasal Screen MRSA (PCR) Negative (Negative) Urine Opiates Screen (Neg) Ur Methadone, Qual (Neg) Urine Fentanyl Screen (Neg) Urine Barbiturates (Neg) Ur Phencyclidine (PCP) (Neg) U Amphetamin/Meth Scrn (Neg) MDMA (Ecstasy) Screen (Neg) U Benzodiazepines Scrn (Neg) Ur Cocaine Metabolite (Neg) U Marijuana (THC) Screen (Neg) Blood Type A Positive Antibody Screen NEGATIVE Crossmatch See Detail 07/05/24 07/05/24 07/05/24 Range/Units 15:33 14:44 12:52 WBC (4.8-10.8) K/ul RBC (4.20-5.40) M/uL Hgb (12.0-16.0) g/dl Hct (37.0-47.0) % MCV (80.0-100.0) fL MCH (25.0-34.0) pg MCHC (32.0-36.0) g/dL RDW Std Deviation (36.4-46.3) fL RDW Coeff of [place] (11.5-14.5) % Plt Count (130-400) K/uL MPV (9.4-12.4) fL Immature Gran % (Auto) % Neut % (Auto) % Lymph % (Auto) % Camp % (Auto) % Eos % (Auto) % Baso % (Auto) % Neut # (Auto) (1.40-6.50) K/uL Lymph # (Auto) (1.20-3.40) K/uL Camp # (Auto) (0.11-0.59) K/uL Eos # (Auto) (0.00-0.50) K/uL Baso # (Auto) (0.00-0.20) K/uL Immature Gran # (Auto) (0.01-0.20) K/uL Toxic Vacuolation Platelet Estimate (Normal) Polychromasia Anisocytosis Tear Drop Cells PT (9.0-12.0) Seconds INR (0.9-1.1) VBG pH 7.51 H (7.36-7.41) VBG pCO2 31 L (38-50) mmHg VBG pO2 57 mmHg VBG HCO3 25 mmol/L VBG O2 Saturation 87.2 % VBG Base Excess 2.3 mEq/L Sodium (136-145) mmol/L Potassium (3.5-5.1) mmol/L Chloride (98-107) mmol/L Carbon Dioxide (21-32) mmol/L Anion Gap (3-11) BUN (6-23) mg/dl Creatinine (0.6-1.2) mg/dl Est Cr Clr Drug Dosing ml/min eGFR BUN/Creatinine Ratio (10-20) Glucose (70-99(Fasting)) mg/dl Osmolality (280-300) mOsm/kg Lactate (0.4-2.0) mmol/L Calcium (8.6-10.3) mg/dl Total Bilirubin (0.2-1.0) mg/dl AST (13-39) U/L ALT (7-52) U/L Alkaline Phosphatase (34-104) U/L Ammonia (18-72) umol/L C-Reactive Protein (0-0.5) mg/dl Total Protein (6.0-8.3) gm/dl Albumin (3.4-5.0) gm/dl Globulin (2.5-4.0) gm/dl Albumin/Globulin Ratio (0.9-2) Procalcitonin (0-0.5) ng/ml Urine Color See Comment Urine Appearance Turbid A (Clear) Urine pH Not Reportable Ur Specific [place] 1.017 (1.000-1.030) Urine Protein Not Reportable Urine Glucose (UA) Not Reportable Urine Ketones Not Reportable Urine Blood Not Reportable Urine Nitrite Not Reportable Urine Bilirubin Not Reportable Urine Urobilinogen Not Reportable Ur Leukocyte Esterase Not Reportable Urine RBC >20 H (0-2) /hpf Urine WBC >50 H (0-5) /hpf Ur Epithelial Cells 0-2 (0-2) /hpf Urine Bacteria 4+ H (None Seen) Hyaline Casts Present A (None Presnt) /lpf Urine Osmolality 300 L (500-800) mOsm/kg Ur Random Sodium 13 mmol/L Urine Comment Fluid Neutrophils % 25 % Fluid Lymphocytes % 11 % Fluid Meso/Macro/Camp % 65 % Fluid Slide Review Pending Fluid Comment Peritoneal Color Yellow Peritoneal Appearance Clear Peritoneal WBC (Auto) 103 (0-300) /ul Peritoneal RBC (Auto) < 2000 /uL Peritoneal Tot Protein < 3.0 gm/dl Peritoneal Albumin < 1.5 gm/dl Nasal Screen MRSA (PCR) (Negative) Urine Opiates Screen Neg (Neg) Ur Methadone, Qual Neg (Neg) Urine Fentanyl Screen Neg (Neg) Urine Barbiturates Neg (Neg) Ur Phencyclidine (PCP) Neg (Neg) U Amphetamin/Meth Scrn Neg (Neg) MDMA (Ecstasy) Screen Neg (Neg) U Benzodiazepines Scrn Neg (Neg) Ur Cocaine Metabolite Neg (Neg) U Marijuana (THC) Screen Neg (Neg) Blood Type Antibody Screen Crossmatch 07/05/24 07/05/24 07/05/24 Range/Units 12:41 12:37 10:07 WBC (4.8-10.8) K/ul RBC (4.20-5.40) M/uL Hgb (12.0-16.0) g/dl Hct (37.0-47.0) % MCV (80.0-100.0) fL MCH (25.0-34.0) pg MCHC (32.0-36.0) g/dL RDW Std Deviation (36.4-46.3) fL RDW Coeff of [place] (11.5-14.5) % Plt Count (130-400) K/uL MPV (9.4-12.4) fL Immature Gran % (Auto) % Neut % (Auto) % Lymph % (Auto) % Camp % (Auto) % Eos % (Auto) % Baso % (Auto) % Neut # (Auto) (1.40-6.50) K/uL Lymph # (Auto) (1.20-3.40) K/uL [place] # (Auto) (0.11-0.59) K/uL Eos # (Auto) (0.00-0.50) K/uL Baso # (Auto) (0.00-0.20) K/uL Immature Gran # (Auto) (0.01-0.20) K/uL Toxic Vacuolation Platelet Estimate (Normal) Polychromasia Anisocytosis Tear Drop Cells PT (9.0-12.0) Seconds INR (0.9-1.1) VBG pH (7.36-7.41) VBG pCO2 (38-50) mmHg VBG pO2 mmHg VBG HCO3 mmol/L VBG O2 Saturation % VBG Base Excess mEq/L Sodium (136-145) mmol/L Potassium (3.5-5.1) mmol/L Chloride (98-107) mmol/L Carbon Dioxide (21-32) mmol/L Anion Gap (3-11) BUN (6-23) mg/dl Creatinine (0.6-1.2) mg/dl Est Cr Clr Drug Dosing ml/min eGFR BUN/Creatinine Ratio (10-20) Glucose (70-99(Fasting)) mg/dl Osmolality 263 L (280-300) mOsm/kg Lactate 1.7 (0.4-2.0) mmol/L Calcium (8.6-10.3) mg/dl Total Bilirubin (0.2-1.0) mg/dl AST (13-39) U/L ALT (7-52) U/L Alkaline Phosphatase (34-104) U/L Ammonia (18-72) umol/L C-Reactive Protein 6.52 H (0-0.5) mg/dl Total Protein (6.0-8.3) gm/dl Albumin (3.4-5.0) gm/dl Globulin (2.5-4.0) gm/dl Albumin/Globulin Ratio (0.9-2) Procalcitonin 1.34 H (0-0.5) ng/ml Urine Color Urine Appearance (Clear) Urine pH Ur Specific [place] (1.000-1.030) Urine Protein Urine Glucose (UA) Urine Ketones Urine Blood Urine Nitrite Urine Bilirubin Urine Urobilinogen Ur Leukocyte Esterase Urine RBC (0-2) /hpf Urine WBC (0-5) /hpf Ur Epithelial Cells (0-2) /hpf Urine Bacteria (None Seen) Hyaline Casts (None Presnt) /lpf Urine Osmolality (500-800) mOsm/kg Ur Random Sodium mmol/L Urine Comment Fluid Neutrophils % % Fluid Lymphocytes % % Fluid Meso/Macro/Camp % % Fluid Slide Review Fluid Comment Peritoneal Color Peritoneal Appearance Peritoneal WBC (Auto) (0-300) /ul Peritoneal RBC (Auto) /uL Peritoneal Tot Protein gm/dl Peritoneal Albumin gm/dl Nasal Screen MRSA (PCR) (Negative) Urine Opiates Screen (Neg) Ur Methadone, Qual (Neg) Urine Fentanyl Screen (Neg) Urine Barbiturates (Neg) Ur Phencyclidine (PCP) (Neg) U Amphetamin/Meth Scrn (Neg) MDMA (Ecstasy) Screen (Neg) U Benzodiazepines Scrn (Neg) Ur Cocaine Metabolite (Neg) U Marijuana (THC) Screen (Neg) Blood Type Antibody Screen Crossmatch Diagnostic Findings Chest X-Ray 07/05/24 10:00 XR chest 1V portable CLINICAL HISTORY: Chest pain, nonspecific COMPARISON STUDY: None FINDINGS: Heart size and pulmonary vasculature are normal. Inspiration is shallow. There is stranding and patchy opacity at the left lung base. No pleural effusion or pneumothorax. IMPRESSION: Atelectasis versus early pneumonia left lung base. ACT 112: Negative or not required by law. Electronically signed by: Bo Gabriel M.D. 07/05/2024 10:18 AM Abdomen/Pelvis CT 07/05/24 10:[address] WITHOUT CONTRAST CT DOSE: 1753.92 mGy.cm HISTORY: Acute generalized abdominal pain with cirrhosis ams, cirrhosis TECHNIQUE: Multiaxial CT images of the abdomen and pelvis were performed without contrast. A dose lowering technique was utilized adhering to the principles of ALARA. COMPARISON STUDY: 05/24/2024 FINDINGS: Dependent bibasilar atelectasis. Patchy consolidative opacities of the inferior segment lingula and basal left lower lobe. Additional mild bronchoalveolar groundglass densities in the right lung base. 4 mm likely infectious or inflammatory nodule in the right lower lobe. Findings are new from the prior CT. There is no pneumatosis or pneumoperitoneum. Spleen is enlarged measuring up to 14.5 cm in length. Unremarkable unenhanced pancreas, gallbladder and adrenal glands. Cirrhotic liver redemonstrated with diffuse heterogeneity/geographic hepatic steatosis again seen. Unremarkable kidneys without hydronephrosis. Decompressed urinary bladder with mild wall thickening. 12 mm pedunculated fundal fibroid. Mild atherosclerosis of the aorta. Borderline enlarged retroperitoneal and periportal lymph nodes may be secondary to the underlying liver disease. There is wall thickening noted throughout the large bowel which is mostly decompressed and partially decompressed. Terminal ileum is unremarkable. Several loops of small bowel demonstrates circumferential wall thickening and dilation measuring up to 4.6 cm, the dilation is new from the prior study. Transition decompressed loops of small bowel within the right abdomen. No CT evidence of acute appendicitis. Moderate abdominal pelvic ascites again noted along with thickening and mild nodularity of the peritoneal reflections. No acute fracture. Abdominal varicosities are noted. No acute fracture or destructive bone lesion. IMPRESSION: 1. Dilated loops of small bowel within the central abdomen with decompressed loops within the right abdomen suggestive of a small bowel obstruction. 2. Cirrhosis with splenomegaly, abdominal varicosities and moderate abdominal pelvic ascites compatible with portal venous hypertension. 2. Redemonstration of thickening and nodularity of the peritoneal reflections which could be correlated with paracentesis to exclude bacterial peritonitis. Carcinomatosis is considered less likely. 3. Left greater than right bibasilar pneumonia. 4. Additional findings as above. ACT 112: Negative or not required by law. The above report was generated using voice recognition software. It may contain grammatical, syntax or spelling errors. Electronically signed by: Dereck Rodriguez M.D. 07/05/2024 12:[address] 07/05/24 10:49 CT head/brain wo con CLINICAL HISTORY: 38 years-old Female with ams, cirrhosis. Acutely altered mental status with cirrhosis TECHNIQUE: Multiple axial CT images of the head were obtained without contrast. A dose lowering technique was utilized adhering to the principles of ALARA. COMPARISON: None FINDINGS: No acute intracranial hemorrhage, midline shift, intracranial mass, hydrocephalus, territorial ischemia or abnormal extra-axial collection. The calvarium is intact. The paranasal sinuses, mastoid air cells, and middle ear cavities are clear. IMPRESSION: No acute intracranial abnormality. ACT 112: Negative or not required by law. The above report was generated using voice recognition software. It may contain grammatical, syntax or spelling errors. Electronically signed by: Dereck Rodriguez M.D. 07/05/2024 12:07 PM
--- NOTE | 2024-07-06 12:11 | Surgery Progress Note ---
Date of Service July 06, 2024 Assessment & Plan (1) Cirrhosis: (2) Pancytopenia: (3) Partial small bowel obstruction: Plan 38-year-old woman with severe cirrhosis and ascites presents with altered mental status. CT scan demonstrates severe ascites and possible small bowel obs truction. Based on laboratory evaluation section as well as ascitic fluid analysis, most likely spontaneous bacterial peritonitis and urinary tract infections. She is not having any abdominal pain or tenderness. She is passing flatus. She is tolerating clear liquids. I do not believe she has a small bowel obstruction. Continue clear liquid diet for now. Will monitor. Admission and Anticipated Discharge Date Admission Date: July 05, 2024 Subjective Some mental deterioration overnight. Denies nausea. Positive flatus. No fevers. Urinary analysis with UTI. Preliminary analysis of ascitic fluid with large white blood cells. Physical Exam Constitutional: + ill appearing, + thin and + lethargic Gastrointestinal (Abdomen): Inspection/Auscultation: + abdomen distended Percussion/Palpation: abdomen soft; abdomen nontender, no guarding and abdomen not rigid Results & Data Vital Signs (Past 12 Hours) Vital Signs Temp Pulse Pulse Resp BP BP Pulse Ox 07/06/24 11:47 36.6 C 111 H 16 123/74 96 07/06/24 11:32 36.7 C 112 H 16 128/77 96 07/06/24 11:08 36.8 C 113 H 19 117/72 96 07/06/24 08:47 36.7 C 115 H 16 124/75 94 07/06/24 07:43 37.2 C 122 H 16 122/76 93 07/06/24 06:43 37.5 C 124 H 24 126/71 94 07/06/24 06:13 36.8 C 125 H 22 124/64 93 07/06/24 05:58 36.3 C L 124 H 22 128/76 92 07/06/24 05:41 37.2 C 122 H 23 124/64 94 07/06/24 04:10 124 H 121/51 L 93 07/06/24 02:15 37.7 C H O2 Del Method 07/06/24 11:47 07/06/24 11:32 07/06/24 11:08 07/06/24 08:47 07/06/24 07:43 07/06/24 06:43 07/06/24 06:13 07/06/24 05:58 07/06/24 05:41 07/06/24 04:10 Room Air 07/06/24 02:15 Laboratory Results 07/06/24 07/06/24 07/06/24 Range/Units 08:59 03:10 02:42 WBC 15.11 H (4.8-10.8) K/ul RBC 2.07 L (4.20-5.40) M/uL Hgb 6.9 L* (12.0-16.0) g/dl Hct 20.4 L* (37.0-47.0) % MCV 98.6 (80.0-100.0) fL MCH 33.3 (25.0-34.0) pg MCHC 33.8 (32.0-36.0) g/dL RDW Std Deviation 79.7 H (36.4-46.3) fL RDW Coeff of Jessenia 22.0 H (11.5-14.5) % Plt Count 77 L (130-400) K/uL MPV 9.5 (9.4-12.4) fL Immature Gran % (Auto) 0.4 % Neut % (Auto) 85.2 % Lymph % (Auto) 4.6 % [place] % (Auto) 9.0 % Eos % (Auto) 0.7 % Baso % (Auto) 0.1 % Neut # (Auto) 12.55 H (1.40-6.50) K/uL Lymph # (Auto) 0.68 L (1.20-3.40) K/uL [place] # (Auto) 1.32 H (0.11-0.59) K/uL Eos # (Auto) 0.10 (0.00-0.50) K/uL Baso # (Auto) 0.01 (0.00-0.20) K/uL Immature Gran # (Auto) 0.06 (0.01-0.20) K/uL Toxic Vacuolation 1+ Platelet Estimate Decreased L (Normal) Polychromasia 2+ Anisocytosis Present Tear Drop Cells 1+ PT 14.8 H (9.0-12.0) Seconds INR 1.4 H (0.9-1.1) VBG pH 7.51 H (7.36-7.41) VBG pCO2 31 L (38-50) mmHg VBG pO2 57 mmHg VBG HCO3 25 mmol/L VBG O2 Saturation 87.9 % VBG Base Excess 2.3 mEq/L Sodium 124 L (136-145) mmol/L Potassium 4.9 (3.5-5.1) mmol/L Chloride 89 L (98-107) mmol/L Carbon Dioxide 24 (21-32) mmol/L Anion Gap 11 (3-11) BUN 29 H (6-23) mg/dl Creatinine 1.87 H D (0.6-1.2) mg/dl Est Cr Clr Drug Dosing 43.1 ml/min eGFR 34.89 BUN/Creatinine Ratio 15.5 (10-20) Glucose 93 (70-99(Fasting)) mg/dl Osmolality (280-300) mOsm/kg Lactate 1.7 (0.4-2.0) mmol/L Calcium 8.5 L (8.6-10.3) mg/dl Total Bilirubin 8.1 H (0.2-1.0) mg/dl AST 34 (13-39) U/L ALT 15 (7-52) U/L Alkaline Phosphatase 96 (34-104) U/L Ammonia 123.0 H (18-72) umol/L C-Reactive Protein 5.26 H (0-0.5) mg/dl Total Protein 5.8 L (6.0-8.3) gm/dl Albumin 2.7 L (3.4-5.0) gm/dl Globulin 3.1 (2.5-4.0) gm/dl Albumin/Globulin Ratio 0.9 (0.9-2) Procalcitonin (0-0.5) ng/ml Urine Color Urine Appearance (Clear) Urine pH Ur Specific Cl[place]son (1.000-1.030) Urine Protein Urine Glucose (UA) Urine Ketones Urine Blood Urine Nitrite Urine Bilirubin Urine Urobilinogen Ur Leukocyte Esterase Urine RBC (0-2) /hpf Urine WBC (0-5) /hpf Ur Epithelial Cells (0-2) /hpf Urine Bacteria (None Seen) Hyaline Casts (None Presnt) /lpf Urine Osmolality (500-800) mOsm/kg Ur Random Sodium mmol/L Urine Comment Fluid Neutrophils % % Fluid Lymphocytes % % Fluid Meso/Macro/[place] % % Fluid Slide Review Fluid Comment Peritoneal Color Peritoneal Appearance Peritoneal WBC (Auto) (0-300) /ul Peritoneal RBC (Auto) /uL Peritoneal Tot Protein gm/dl Peritoneal Albumin gm/dl Nasal Screen MRSA (PCR) Negative (Negative) Urine Opiates Screen (Neg) Ur Methadone, Qual (Neg) Urine Fentanyl Screen (Neg) Urine Barbiturates (Neg) Ur Phencyclidine (PCP) (Neg) U Amphetamin/Meth Scrn (Neg) MDMA (Ecstasy) Screen (Neg) U Benzodiazepines Scrn (Neg) Ur Cocaine Metabolite (Neg) U Marijuana (THC) Screen (Neg) Blood Type A Positive Antibody Screen NEGATIVE Crossmatch See Detail 07/05/24 07/05/24 07/05/24 Range/Units 15:33 14:44 12:52 WBC (4.8-10.8) K/ul RBC (4.20-5.40) M/uL Hgb (12.0-16.0) g/dl Hct (37.0-47.0) % MCV (80.0-100.0) fL MCH (25.0-34.0) pg MCHC (32.0-36.0) g/dL RDW Std Deviation (36.4-46.3) fL RDW Coeff of Jessenia (11.5-14.5) % Plt Count (130-400) K/uL MPV (9.4-12.4) fL Immature Gran % (Auto) % Neut % (Auto) % Lymph % (Auto) % [place] % (Auto) % Eos % (Auto) % Baso % (Auto) % Neut # (Auto) (1.40-6.50) K/uL Lymph # (Auto) (1.20-3.40) K/uL [place] # (Auto) (0.11-0.59) K/uL Eos # (Auto) (0.00-0.50) K/uL Baso # (Auto) (0.00-0.20) K/uL Immature Gran # (Auto) (0.01-0.20) K/uL Toxic Vacuolation Platelet Estimate (Normal) Polychromasia Anisocytosis Tear Drop Cells PT (9.0-12.0) Seconds INR (0.9-1.1) VBG pH 7.51 H (7.36-7.41) VBG pCO2 31 L (38-50) mmHg VBG pO2 57 mmHg VBG HCO3 25 mmol/L VBG O2 Saturation 87.2 % VBG Base Excess 2.3 mEq/L Sodium (136-145) mmol/L Potassium (3.5-5.1) mmol/L Chloride (98-107) mmol/L Carbon Dioxide (21-32) mmol/L Anion Gap (3-11) BUN (6-23) mg/dl Creatinine (0.6-1.2) mg/dl Est Cr Clr Drug Dosing ml/min eGFR BUN/Creatinine Ratio (10-20) Glucose (70-99(Fasting)) mg/dl Osmolality (280-300) mOsm/kg Lactate (0.4-2.0) mmol/L Calcium (8.6-10.3) mg/dl Total Bilirubin (0.2-1.0) mg/dl AST (13-39) U/L ALT (7-52) U/L Alkaline Phosphatase (34-104) U/L Ammonia (18-72) umol/L C-Reactive Protein (0-0.5) mg/dl Total Protein (6.0-8.3) gm/dl Albumin (3.4-5.0) gm/dl Globulin (2.5-4.0) gm/dl Albumin/Globulin Ratio (0.9-2) Procalcitonin (0-0.5) ng/ml Urine Color See Comment Urine Appearance Turbid A (Clear) Urine pH Not Reportable Ur Specific [place] 1.017 (1.000-1.030) Urine Protein Not Reportable Urine Glucose (UA) Not Reportable Urine Ketones Not Reportable Urine Blood Not Reportable Urine Nitrite Not Reportable Urine Bilirubin Not Reportable Urine Urobilinogen Not Reportable Ur Leukocyte Esterase Not Reportable Urine RBC >20 H (0-2) /hpf Urine WBC >50 H (0-5) /hpf Ur Epithelial Cells 0-2 (0-2) /hpf Urine Bacteria 4+ H (None Seen) Hyaline Casts Present A (None Presnt) /lpf Urine Osmolality 300 L (500-800) mOsm/kg Ur Random Sodium 13 mmol/L Urine Comment Fluid Neutrophils % 25 % Fluid Lymphocytes % 11 % Fluid Meso/Macro/[place] % 65 % Fluid Slide Review Pending Fluid Comment Peritoneal Color Yellow Peritoneal Appearance Clear Peritoneal WBC (Auto) 103 (0-300) /ul Peritoneal RBC (Auto) < 2000 /uL Peritoneal Tot Protein < 3.0 gm/dl Peritoneal Albumin < 1.5 gm/dl Nasal Screen MRSA (PCR) (Negative) Urine Opiates Screen Neg (Neg) Ur Methadone, Qual Neg (Neg) Urine Fentanyl Screen Neg (Neg) Urine Barbiturates Neg (Neg) Ur Phencyclidine (PCP) Neg (Neg) U Amphetamin/Meth Scrn Neg (Neg) MDMA (Ecstasy) Screen Neg (Neg) U Benzodiazepines Scrn Neg (Neg) Ur Cocaine Metabolite Neg (Neg) U Marijuana (THC) Screen Neg (Neg) Blood Type Antibody Screen Crossmatch 07/05/24 07/05/24 07/05/24 Range/Units 12:41 12:37 10:07 WBC (4.8-10.8) K/ul RBC (4.20-5.40) M/uL Hgb (12.0-16.0) g/dl Hct (37.0-47.0) % MCV (80.0-100.0) fL MCH (25.0-34.0) pg MCHC (32.0-36.0) g/dL RDW Std Deviation (36.4-46.3) fL RDW Coeff of Jessenia (11.5-14.5) % Plt Count (130-400) K/uL MPV (9.4-12.4) fL Immature Gran % (Auto) % Neut % (Auto) % Lymph % (Auto) % [place] % (Auto) % Eos % (Auto) % Baso % (Auto) % Neut # (Auto) (1.40-6.50) K/uL Lymph # (Auto) (1.20-3.40) K/uL [place] # (Auto) (0.11-0.59) K/uL Eos # (Auto) (0.00-0.50) K/uL Baso # (Auto) (0.00-0.20) K/uL Immature Gran # (Auto) (0.01-0.20) K/uL Toxic Vacuolation Platelet Estimate (Normal) Polychromasia Anisocytosis Tear Drop Cells PT (9.0-12.0) Seconds INR (0.9-1.1) VBG pH (7.36-7.41) VBG pCO2 (38-50) mmHg VBG pO2 mmHg VBG HCO3 mmol/L VBG O2 Saturation % VBG Base Excess mEq/L Sodium (136-145) mmol/L Potassium (3.5-5.1) mmol/L Chloride (98-107) mmol/L Carbon Dioxide (21-32) mmol/L Anion Gap (3-11) BUN (6-23) mg/dl Creatinine (0.6-1.2) mg/dl Est Cr Clr Drug Dosing ml/min eGFR BUN/Creatinine Ratio (10-20) Glucose (70-99(Fasting)) mg/dl Osmolality 263 L (280-300) mOsm/kg Lactate 1.7 (0.4-2.0) mmol/L Calcium (8.6-10.3) mg/dl Total Bilirubin (0.2-1.0) mg/dl AST (13-39) U/L ALT (7-52) U/L Alkaline Phosphatase (34-104) U/L Ammonia (18-72) umol/L C-Reactive Protein 6.52 H (0-0.5) mg/dl Total Protein (6.0-8.3) gm/dl Albumin (3.4-5.0) gm/dl Globulin (2.5-4.0) gm/dl Albumin/Globulin Ratio (0.9-2) Procalcitonin 1.34 H (0-0.5) ng/ml Urine Color Urine Appearance (Clear) Urine pH Ur Specific [place] (1.000-1.030) Urine Protein Urine Glucose (UA) Urine Ketones Urine Blood Urine Nitrite Urine Bilirubin Urine Urobilinogen Ur Leukocyte Esterase Urine RBC (0-2) /hpf Urine WBC (0-5) /hpf Ur Epithelial Cells (0-2) /hpf Urine Bacteria (None Seen) Hyaline Casts (None Presnt) /lpf Urine Osmolality (500-800) mOsm/kg Ur Random Sodium mmol/L Urine Comment Fluid Neutrophils % % Fluid Lymphocytes % % Fluid Meso/Macro/[place] % % Fluid Slide Review Fluid Comment Peritoneal Color Peritoneal Appearance Peritoneal WBC (Auto) (0-300) /ul Peritoneal RBC (Auto) /uL Peritoneal Tot Protein gm/dl Peritoneal Albumin gm/dl Nasal Screen MRSA (PCR) (Negative) Urine Opiates Screen (Neg) Ur Methadone, Qual (Neg) Urine Fentanyl Screen (Neg) Urine Barbiturates (Neg) Ur Phencyclidine (PCP) (Neg) U Amphetamin/Meth Scrn (Neg) MDMA (Ecstasy) Screen (Neg) U Benzodiazepines Scrn (Neg) Ur Cocaine Metabolite (Neg) U Marijuana (THC) Screen (Neg) Blood Type Antibody Screen Crossmatch (1) Cirrhosis Hepatic cirrhosis type: unspecified hepatic cirrhosis Ascites presence: with ascites Qualified Code(s): K74.60 - Unspecified cirrhosis of liver; R18.8 - Other ascites
[2024-07-06 20:36] LABS: Hematocrit (blood only) 23.2 % (37.0-47.0); Mean Corpuscular Hemoglobin 32.4 pg (25.0-34.0); Mean Corpuscular Hgb Conc 34.5 g/dL (32.0-36.0); Mean Corpuscular Volume 93.9 fL (80.0-100.0); Mean Platelet Volume 9.3 fL (9.4-12.4); Platelet Count 59 K/uL (130-400); RDW Coefficient of Variation 24.8 % (11.5-14.5); Red Blood Count 2.47 M/uL (4.20-5.40); White Blood Count 6.06 K/ul (4.8-10.8)
[2024-07-06 20:57] LABS: Albumin Globulin Ratio 0.8 (0.9-2); Albumin Level 2.5 gm/dl (3.4-5.0); Bilirubin,Total 12.9 mg/dl (0.2-1.0); Calcium 8.4 mg/dl (8.6-10.3); Creatinine Clr Calc Pharmacy 36.8 ml/min; Globulin 3.2 gm/dl (2.5-4.0); Potassium 4.4 mmol/L (3.5-5.1); Total Protein 5.7 gm/dl (6.0-8.3)
[2024-07-06] MEDS ORDERED: PANTOprazole 40 MG/10 ML SYR IV SCH (21:00)
[2024-07-06 21:51] LABS: Basophils # (auto) 0.02 K/uL (0.00-0.20); Basophils % (auto) 0.3 %; Eosinophils # (auto) 0.08 K/uL (0.00-0.50); Eosinophils % (auto) 1.3 %; Immature Granulocytes # (auto) 0.03 K/uL (0.01-0.20); Immature Granulocytes % (auto) 0.5 %; Lymphocytes # (auto) 0.95 K/uL (1.20-3.40); Lymphocytes % (auto) 15.7 %; Monocytes # (auto) 0.97 K/uL (0.11-0.59); Neutrophils # (auto) 4.01 K/uL (1.40-6.50); Neutrophils % (auto) 66.2 %
--- NOTE | 2024-07-06 23:36 | Hospitalist Progress Note ---
Date of Service July 06, 2024 Assessment & Plan (1) Acute hepatic encephalopathy: Plan: Acute hepatic encephalopathy in a 38 yo female with cirrhosis. Patient remains lethargic. Ammonia level now elevated which points more towars the above diagnosis. Given her lethargy, will be on lactulose enemas. May consider NG tube lactulose but gieven her anemia and cirrhosis, concern for esophageal varices bleed. updated family. MELD 3.0 29 Survival Prediction 30 day 90.6% 60 day 75.1% consulted GI appreciate input. (2) Pneumonia: Plan: Sepsis unknown source. Doubt SBP, possible pneumonia vs UTI. overnight provider expanded to doxy and ertapenem. will maintain for now will continue to monitor. (3) Ascites: Plan: does not appear to be SBP. (4) Anemia: Plan: hemoglbin droped to below 7 ordered 2 units of PRBC. will monitor. ordered octreotide for possible esophageal bleed. Admission and Anticipated Discharge Date Admission Date: July 05, 2024 Subjective Patient remains lethargic. Review of Systems Review of Systems: Unobtainable due to cognitive status Physical Exam Constitutional: + ill appearing, + thin and + lethargic Eyes: scleral icterus Neck: trachea midline, no thyromegaly Respiratory: normal respiratory effort; no respiratory distress Cardiovascular: Rate/Rhythm: regular rhythm and + tachycardic Gastrointestinal (Abdomen): Inspection/Auscultation: + abdomen distended Percussion/Palpation: abdomen soft; abdomen nontender, no guarding and abdomen not rigid Psychiatric: Orientation: alert and cooperative Results & Data Results & Data Vital Signs (Past 12 Hours) Vital Signs Temp Pulse Pulse Resp BP BP Pulse Ox 07/06/24 21:59 116 H 07/06/24 20:11 36.5 C 112 H 17 127/74 96 07/06/24 15:13 36.6 C 111 H 19 107/67 95 07/06/24 13:45 36.5 C 112 H 16 120/72 100 07/06/24 13:17 36.5 C 112 H 16 113/67 98 07/06/24 12:17 36.4 C L 113 H 16 123/75 95 07/06/24 11:47 36.6 C 111 H 16 123/74 96 O2 Del Method 07/06/24 21:59 07/06/24 20:11 Room Air 07/06/24 15:13 Room Air 07/06/24 13:45 07/06/24 13:17 07/06/24 12:17 07/06/24 11:47 PG Care Time/CCT Total # of Minutes Spent Total Time Spent with Patient: Total time spent is greater than 50% in coordination of care (as documented) at patient's floor/unit and/or counseling patient: Coding Level of Care Code 02678 SUB INP/OBS CARE 3/50MIN Diagnoses Acute hepatic encephalopathy K76.82 Pneumonia J18.9 Laterality: left Lung location: lower lobe of lung Pneumonia type: due to unspecified organism Ascites R18.8 Ascites type: other type Anemia D64.9 (2) Pneumonia Laterality: left Lung location: lower lobe of lung Pneumonia type: due to unspecified organism Qualified Code(s): J18.9 - Pneumonia, unspecified organism (3) Ascites Ascites type: other type Qualified Code(s): R18.8 - Other ascites
[2024-07-07 06:04] LABS: Hematocrit (blood only) 24.1 % (37.0-47.0); Hemoglobin 8.2 g/dl (12.0-16.0); Mean Corpuscular Hemoglobin 32.4 pg (25.0-34.0); Mean Corpuscular Volume 95.3 fL (80.0-100.0); Mean Platelet Volume 9.5 fL (9.4-12.4); Platelet Count 75 K/uL (130-400); RDW Coefficient of Variation 25.2 % (11.5-14.5); RDW Standard Deviation 83.2 fL (36.4-46.3); Red Blood Count 2.53 M/uL (4.20-5.40); White Blood Count 7.43 K/ul (4.8-10.8)
[2024-07-07 06:19] LABS: Albumin Level 2.7 gm/dl (3.4-5.0); Bilirubin,Total 11.8 mg/dl (0.2-1.0); Calcium 8.5 mg/dl (8.6-10.3); Potassium 4.2 mmol/L (3.5-5.1)
[2024-07-07 06:25] LABS: Albumin Globulin Ratio 0.9 (0.9-2); BUN Creatinine Ratio 17.5 (10-20); C Reactive Protein 7.34 mg/dl (0-0.5); Creatinine Clr Calc Pharmacy 38.1 ml/min; Globulin 2.9 gm/dl (2.5-4.0); Total Protein 5.6 gm/dl (6.0-8.3)
[2024-07-07 06:47] LABS: Folate (Folic Acid),Ser orPlas 12.06 ng/ml (>5.38)
[2024-07-07 06:48] LABS: Vitamin B12 > 1500 pg/ml (180-914)
[2024-07-07 06:56] LABS: Anisocytosis Present; Basophils # (auto) 0.01 K/uL (0.00-0.20); Basophils % (auto) 0.1 %; Echinocytes 1+; Eosinophils # (auto) 0.08 K/uL (0.00-0.50); Eosinophils % (auto) 1.1 %; Immature Granulocytes # (auto) 0.05 K/uL (0.01-0.20); Immature Granulocytes % (auto) 0.7 %; Lymphocytes # (auto) 1.04 K/uL (1.20-3.40); Monocytes # (auto) 1.14 K/uL (0.11-0.59); Monocytes % (auto) 15.3 %; Neutrophils # (auto) 5.11 K/uL (1.40-6.50); Neutrophils % (auto) 68.8 %; Polychromasia 1+; Tear Drop Cells 1+
--- NOTE | 2024-07-07 09:53 | Gastroenterology Progress Note ---
Date of Service July 07, 2024 Assessment & Plan (1) Acute hepatic encephalopathy: Plan: Seems to be waking up. Suspect as more po lactulose ingested she will wake up even more. Will continue to follow Admission and Anticipated Discharge Date Admission Date: July 05, 2024 Subjective More awake today. Taking lactulose po albeit slowly. No bleeding Physical Exam Constitutional: WD/WN, vitals as above + ill appearing Results & Data Vital Signs (Past 12 Hours) Vital Signs Temp Pulse Pulse Resp BP Pulse Ox O2 Del Method 07/07/24 07:15 36.8 C 114 H 18 127/75 96 Room Air 07/07/24 04:07 36.9 C 119 H 17 132/71 91 Room Air 07/06/24 23:41 36.6 C 117 H 16 132/77 95 Room Air 07/06/24 21:59 116 H
--- NOTE | 2024-07-07 11:07 | Ultrasound Report ---
US duplex portal hepatic veins HISTORY: 38 years-old Female cirrhosis cirrhotic liver disease COMPARISON: CT abdomen and pelvis 07/05/2024 TECHNIQUE: Multiple real-time sonographic images of the hepatic vasculature was obtained assessing gr ayscale appearance, color and spectral flow FINDINGS: Patency of the main and right portal veins with nonvisualization of the left portal vein. Hepatopedal flow is noted. Cirrhotic liver with abdominal ascites again noted. Patent hepatic veins with normal waveforms. The hepatic artery was not imaged. IMPRESSION: 1. No evidence of portal venous thrombosis. 2. Cirrhosis with ascites. ACT 112: Negative or not required by law. The above report was generated using voice recognition software. It may contain grammatical, syntax o r spelling errors. Electronically signed by: Dereck Rodriguez M.D. 07/07/2024 11:06 AM
[2024-07-07] MEDS: cefTRIAXone SODIUM 2,000 MG/50 ML BAG IV SCH (21:01)
--- NOTE | 2024-07-07 22:34 | Hospitalist Progress Note ---
Date of Service July 07, 2024 Assessment & Plan (1) Acute hepatic encephalopathy: Plan: Acute hepatic encephalopathy in a 38 yo female with cirrhosis. Patient remains lethargic. Ammonia level now elevated which points more towars the above diagnosis. Given her lethargy, will be on lactulose enemas. May consider NG tube lactulose but gieven her anemia and cirrhosis, concern for esophageal varices bleed. updated family. MELD 3.0 29 Survival Prediction 30 day 90.6% 60 day 75.1% consulted GI appreciate input. Maddrey score has been under 32 except /. However mentation is improving. Maddrey score improved to below 32 WIth concern of GI bleed, will hold prednisolone and monitor. Given lack of intake will place on IVF Transitioned back to ceftriaxone (2) Pneumonia: Plan: Sepsis unknown source. Doubt SBP, possible pneumonia vs UTI. overnight provider expanded to doxy and ertapenem. will maintain for now will continue to monitor. (3) Ascites: Plan: does not appear to be SBP. (4) Anemia: Plan: hemoglbin droped to below 7 ordered 2 units of PRBC. will monitor. ordered octreotide for possible esophageal bleed. Admission and Anticipated Discharge Date Admission Date: July 05, 2024 Subjective 38 yo female with improved mentation. Physical Exam Constitutional: + ill appearing, + thin, + altered menta l status and + lethargic Eyes: + scleral abnormality (icteric sclera) ENMT: external ear and nose normal, oropharynx normal Neck: trachea midline, no thyromegaly Respiratory: normal respiratory effort, lungs clear to auscultation normal respiratory effort; no respiratory distress Cardiovascular: RRR, no murmur, no edema Rate/Rhythm: regular rhythm and + tachycardic Gastrointestinal (Abdomen): normal bowel sounds, soft, nontender, no hepatosplenomegaly Inspection/Auscultation: + abdomen distended Percussion/Palpation: abdomen soft; abdomen nontender, no guarding and abdomen not rigid Musculoskeletal: no cyanosis or clubbing, extremities motor strength 5/5 Skin: no rashes, warm and dry Psychiatric: Orientation: alert and cooperative Results & Data Results & Data Vital Signs (Past 12 Hours) Vital Signs Temp Pulse Resp BP BP Pulse Ox O2 Del Method 07/07/24 21:37 Room Air 07/07/24 20:09 36.4 C L 109 H 18 124/77 95 Room Air 07/07/24 16:05 36.6 C 105 H 18 121/76 96 Room Air 07/07/24 11:11 36.6 C 111 H 19 121/72 95 Room Air PG Care Time/CCT Total # of Minutes Spent Total Time Spent with Patient: Total time spent is greater than 50% in coordination of care (as documented) at patient's floor/unit and/or counseling patient: Coding Level of Care Code 42716 SUB INP/OBS CARE 3/50MIN Diagnoses Acute hepatic encephalopathy K76.82 Pneumonia J18.9 Laterality: left Lung location: lower lobe of lung Pneumonia type: due to unspecified organism Ascites R18.8 Ascites type: other type Anemia D64.9 (2) Pneumonia Laterality: left Lung location: lower lobe of lung Pneumonia type: due to unspecified organism Qualified Code(s): J18.9 - Pneumonia, unspecified organism (3) Ascites Ascites type: other type Qualified Code(s): R18.8 - Other ascites
[2024-07-07] MEDS: SODIUM CHLORIDE 0.9% 1,000 ML IV SCH (23:46)
[2024-07-08 06:19] LABS: Hematocrit (blood only) 26.1 % (37.0-47.0); Hemoglobin 8.8 g/dl (12.0-16.0); Mean Corpuscular Hgb Conc 33.7 g/dL (32.0-36.0); Mean Corpuscular Volume 97.8 fL (80.0-100.0); Mean Platelet Volume 9.5 fL (9.4-12.4); Platelet Count 72 K/uL (130-400); RDW Coefficient of Variation 24.5 % (11.5-14.5); RDW Standard Deviation 85.3 fL (36.4-46.3); Red Blood Count 2.67 M/uL (4.20-5.40); White Blood Count 9.74 K/ul (4.8-10.8)
[2024-07-08 06:26] LABS: INR 1.4 (0.9-1.1); Prothrombin Time 14.8 Seconds (9.0-12.0)
[2024-07-08 07:00] LABS: Albumin Globulin Ratio 0.8 (0.9-2); Albumin Level 2.6 gm/dl (3.4-5.0); BUN Creatinine Ratio 22.3 (10-20); Bilirubin,Total 9.2 mg/dl (0.2-1.0); C Reactive Protein 6.66 mg/dl (0-0.5); Calcium 8.7 mg/dl (8.6-10.3); Globulin 3.2 gm/dl (2.5-4.0); Potassium 3.5 mmol/L (3.5-5.1); Total Protein 5.8 gm/dl (6.0-8.3)
[2024-07-08] MEDS ORDERED: prednisoLONE sod phosphate 15 MG/5 ML PO SCH (09:00)
--- NOTE | 2024-07-08 10:41 | Gastroenterology Progress Note ---
Date of Service July 08, 2024 Assessment & Plan (1) Ascites: (2) Cirrhosis: (3) Partial small bowel obstruction: Plan - update KUB given abdominal distention. - further recommendations to follow. Will discuss further with Dr. Mullen. Admission and Anticipated Discharge Date Admission Date: July 05, 2024 Supervising Physician Co-Signing Physician Notes Unfortunate patient with chronic alcoholism and secondary liver disease. X-ray on admission was suggestive of possible small bowel obstruction. She did have moderate ascites. Follow-up KUB shows progressive gastric distention. Her abdominal examination is more consistent with air distention and fluid. She is quite tympanic. Family at the bedside nurses report emesis of bilious material today. Think this patient will require an NG. There are risks of NG placement this patient with thrombocytopenia. She had endoscopy back in December which did not suggest suggest significant varices. Risks of NG placement are outweighed by its benefits at present. This was reviewed with the family at the bedside. Patient really has no meaningful verbal responses at this time. Sedated. Likely related from encephalopathy. NG placement for gastric and small bowel decompression. Once this is achieved she can get her lactulose 2-3 times per day through the NG. Follow-up abdominal series tomorrow. Subjective Patient is confused. she does not answer questions. eyes are open but she does not respond to questioning. This is my first day seeing her, but nursing tells me that she seems to be worse. She had some bilious emesis this morning per nursing. Review of Systems Review of Systems: unobtainable. Physical Exam Gastrointestinal (Abdomen): abdomen is distended. hypoactive bowel sounds. ascites. she seems to be in pain to palpation. Results & Data Results & Data Vital Signs (Past 12 Hours) Vital Signs Temp Pulse Resp BP Pulse Ox O2 Del Method 07/08/24 08:03 Room Air 07/08/24 04:04 97.5 F L 103 H 20 120/79 95 Room Air 07/08/24 00:21 97.5 F L 100 H 19 122/79 96 Room Air Coding Level of Care Code 63806 SUB INP/OBS CARE 2/35MIN Diagnoses Ascites R18.8 Ascites type: other type Alcoholic cirrhosis of liver with ascites K74.60; R18.8 Ascites presence: with ascites Hepatic cirrhosis type: unspecified hepatic cirrhosis Partial small bowel obstruction K56.600 (1) Ascites Ascites type: other type Qualified Code(s): R18.8 - Other ascites (2) Cirrhosis Ascites presence: with ascites Hepatic cirrhosis type: unspecified hepatic cirrhosis Qualified Code(s): K74.60 - Unspecified cirrhosis of liver; R18.8 - Other ascites
--- NOTE | 2024-07-08 11:47 | XRay Report ---
KUB HISTORY: abdominal distention, r/o obstruction COMPARISON STUDY: 07/05/2024 FINDINGS: There is increased gastric distention. There is prominent distention of multiple small kennedy l loops at the central abdomen measuring up to 6 cm, increased. No colonic distention seen. No gross free air. IMPRESSION: Increased small bowel and gastric distention could represent small bowel obstruction. ACT 112: Negative or not required by law. The above report was generated using voice recognition software. It may contain grammatical, syntax o r spelling errors. Electronically signed by: Bo Gabriel M.D. 07/08/2024 11:45 AM
--- NOTE | 2024-07-08 14:40 | Surgery Progress Note ---
Date of Service July 08, 2024 Assessment & Plan (1) Ileus: Plan: Suspect this represents an ileus, less likely a small bowel obstruction given her lack of abdominal surgery. Agree with NG tube placement. She has significant cirrhosis, and is therefore not a good candidate for surgery. If she were to require surgery would recommend transfer to tertiary facility. Agree with NG tube KUB for placement, repeat KUB in the morning Surgical follow, call with questions or concerns May need repeat paracentesis If surgical intervention is indicated, would recommend transfer to tertiary facility. (2) Cirrhosis: (3) Abdominal pain: (4) Acute hepatic encephalopathy: (5) Thrombocytopenia: Admission and Anticipated Discharge Date Admission Date: July 05, 2024 Subjective Patient admitted with hepatic encephalopathy and possible small bowel obstruction versus ileus. KUB today showed worsening distention of the stomach and small bowel. Per the nurse she has had multiple bowel movements but has not been tolerating the oral lactulose. Her father and aunt were in the room and denied any history of surgery. Physical Exam Constitutional: Jaundiced Gastrointestinal (Abdomen): normal bowel sounds, soft, nontender, no hepatosplenomegaly Inspection/Auscultation: + abdomen distended (With fluid weight) Percussion/Palpation: abdomen nontender (No significant tenderness to palpation) Results & Data Vital Signs (Past 12 Hours) Vital Signs Temp Pulse Pulse Resp BP BP Pulse Ox 07/08/24 13:28 36.7 C 105 H 18 137/92 95 07/08/24 11:06 103 H 07/08/24 08:03 07/08/24 04:04 36.4 C L 103 H 20 120/79 95 O2 Del Method 07/08/24 13:28 Room Air 07/08/24 11:06 07/08/24 08:03 Room Air 07/08/24 04:04 Room Air Laboratory Results Laboratory Results - last 24 hr 07/05/24 07/08/24 14:44 05: WBC 9.74 RBC 2.67 L Hgb 8.8 L Hct 26.1 L MCV 97.8 MCH 33.0 MCHC 33.7 RDW Std Deviation 85.3 H RDW Coeff of Jessenia 24.5 H Plt Count 72 L MPV 9.5 PT 14.8 H INR 1.4 H Sodium 137 Potassium 3.5 Chloride 104 Carbon Dioxide 25 Anion Gap 8 BUN 42 H Creatinine 1.88 H Est Cr Clr Drug Dosing 43.0 eGFR 34.67 BUN/Creatinine Ratio 22.3 H Glucose 134 H Calcium 8.7 Total Bilirubin 9.2 H AST 35 ALT 17 Alkaline Phosphatase 83 C-Reactive Protein 6.66 H Total Protein 5.8 L Albumin 2.6 L Globulin 3.2 Albumin/Globulin Ratio 0.8 L Fluid Slide Review Diagnostic Findings Old CT and today's KUB personally viewed and interpreted agree with the assessment of dilated small bowel along with signs and symptoms of cirrhosis with ascites and esophageal splenic varices. There is no specific transition point but a gentle tapering of the bowel. This likely resents an ileus, less likely an acute small bowel obstruction. KUB X-Ray 07/08/24 10:47 KUB HISTORY: abdominal distention, r/o obstruction COMPARISON STUDY: 07/05/2024 FINDINGS: There is increased gastric distention. There is prominent distention of multiple small bowel loops at the central abdomen measuring up to 6 cm, increased. No colonic distention seen. No gross free air. IMPRESSION: Increased small bowel and gastric distention could represent small bowel obstruction. ACT 112: Negative or not required by law. The above report was generated using voice recognition software. It may contain grammatical, syntax or spelling errors. Electronically signed by: Bo Gabriel M.D. 07/08/2024 11:45 AM PG Care Time/CCT Total # of Minutes Spent Total Time Spent with Patient: Total time spent is greater than 50% in coordination of care (as documented) at patient's floor/unit and/or counseling patient: Coding Level of Care Code 41676 SUB INP/OBS CARE 2/35MIN Diagnoses Ileus K56.7 Alcoholic cirrhosis of liver with ascites K74.60; R18.8 Hepatic cirrhosis type: unspecified hepatic cirrhosis Ascites presence: with ascites Abdominal pain R10.9 Acute hepatic encephalopathy K76.82 Thrombocytopenia D69.6 (2) Cirrhosis Hepatic cirrhosis type: unspecified hepatic cirrhosis Ascites presence: with ascites Qualified Code(s): K74.60 - Unspecified cirrhosis of liver; R18.8 - Other ascites
--- NOTE | 2024-07-08 15:25 | XRay Report ---
KUB HISTORY: NG placement COMPARISON STUDY: 07/08/2024 FINDINGS: Nasogastric tube is coiled in the distal esophagus. There is stable small bowel and gastric distention. IMPRESSION: Nasogastric tube is coiled in the distal esophagus. ACT 112: Negative or not required by law. The above report was generated using voice recognition software. It may contain grammatical, syntax o r spelling errors. Electronically signed by: Bo Gabriel M.D. 07/08/2024 3:24 PM
--- NOTE | 2024-07-08 16:21 | XRay Report ---
INDICATION: NG tube placement. TECHNIQUE: One view of the abdomen. FINDINGS/IMPRESSION: Enteric tube coiled in the distal esophagus. Suggest repositioning. Electronically signed by Jordin Negron 07-08-2024 4:20 PM
--- NOTE | 2024-07-08 16:30 | XRay Report ---
INDICATION: NG tube placement. TECHNIQUE: One view the abdomen. FINDINGS/IMPRESSION: Enteric tube in the stomach. Electronically signed by Jordin Negron 07-08-2024 4:29 PM
--- NOTE | 2024-07-08 18:39 | Hospitalist Progress Note ---
Date of Service July 08, 2024 Assessment & Plan (1) Ileus: Plan: Due to Ileus/ possible small bowel bowel obstruction will place patient on NG tube wuu=ith intermittent suction Patient did not have varices in her last uper GI scope over 1 liter removed via NG tube almost immediately after insertion will montor. d/w surgery and GI (2) Acute hepatic encephalopathy: Plan: Acute hepatic encephalopathy in a 38 yo female with cirrhosis. Patient remains lethargic. Ammonia level now elevated which points more towars the above diagnosis. holding lactulose due to above diagnosis updated family. MELD 3.0 29 Survival Prediction 30 day 90.6% 60 day 75.1% consulted GI appreciate input. Maddrey score has been under 32 except /. However mentation is improving. Maddrey score improved to below 32 WIth concern of GI bleed, will hold prednisolone and monitor. Given lack of intake will place on IVF Transitioned back to ceftriaxone (3) Pneumonia: Plan: Sepsis unknown source. Doubt SBP, possible pneumonia vs UTI. overnight provider expanded to doxy and ertapenem. will maintain for now will continue to monitor. (4) Ascites: Plan: does not appear to be SBP. (5) Anemia: Plan: hemoglbin droped to below 7 ordered 2 units of PRBC. will monitor. ordered octreotide for possible esophageal bleed. Admission and Anticipated Discharge Date Admission Date: July 05, 2024 Subjective Patient remains confused. but more awake. Physical Exam Constitutional: + ill appearing, + thin, + altered menta l status and + lev rgic Eyes: + scleral abnormality (icteric sclera) ENMT: external ear and nose normal, oropharynx normal Neck: trachea midline, no thyromegaly Respiratory: normal respiratory effort, lungs clear to auscultation normal respiratory effort; no respiratory distress Cardiovascular: RRR, no murmur, no edema Rate/Rhythm: regular rhythm and + tachycardic Gastrointestinal (Abdomen): normal bowel sounds, soft, nontender, no hepatosplenomegaly Inspection/Auscultation: + abdomen distended Percussion/Palpation: abdomen soft; abdomen nontender, no guarding and abdomen not rigid Musculoskeletal: no cyanosis or clubbing, extremities motor strength 5/5 Skin: no rashes, warm and dry Psychiatric: Orientation: alert and cooperative Results & Data Results & Data Vital Signs (Past 12 Hours) Vital Signs Temp Pulse Pulse Resp BP Pulse Ox O2 Del Method 07/08/24 15:30 107 H 07/08/24 13:28 36.7 C 105 H 18 137/92 95 Room Air 07/08/24 11:06 103 H 07/08/24 08:03 Room Air PG Care Time/CCT Total # of Minutes Spent Total Time Spent with Patient: Total time spent is greater than 50% in coordination of care (as documented) at patient's floor/unit and/or counseling patient: Coding Level of Care Code 08839 SUB INP/OBS CARE 3/50MIN Diagnoses Ileus K56.7 Acute hepatic encephalopathy K76.82 Pneumonia J18.9 Laterality: left Lung location: lower lobe of lung Pneumonia type: due to unspecified organism Ascites R18.8 Ascites type: other type Anemia D64.9 (3) Pneumonia Laterality: left Lung location: lower lobe of lung Pneumonia type: due to unspecified organism Qualified Code(s): J18.9 - Pneumonia, unspecified organism (4) Ascites Ascites type: other type Qualified Code(s): R18.8 - Other ascites
[2024-07-08] MEDS: SODIUM CHLORIDE 0.9% 1,000 ML IV SCH (23:58)
[2024-07-09 06:30] LABS: Hematocrit (blood only) 28.2 % (37.0-47.0); Mean Corpuscular Hemoglobin 32.6 pg (25.0-34.0); Mean Corpuscular Hgb Conc 31.9 g/dL (32.0-36.0); Mean Corpuscular Volume 102.2 fL (80.0-100.0); Mean Platelet Volume 9.5 fL (9.4-12.4); Nucleated RBC # (auto) 0.02 K/uL (0.00-0.12); Nucleated RBC % (auto) 0.1 %; Platelet Count 68 K/uL (130-400); RDW Coefficient of Variation 24.8 % (11.5-14.5); RDW Standard Deviation 89.8 fL (36.4-46.3); Red Blood Count 2.76 M/uL (4.20-5.40); White Blood Count 16.44 K/ul (4.8-10.8)
[2024-07-09 06:49] LABS: Albumin Globulin Ratio 0.8 (0.9-2); Albumin Level 2.6 gm/dl (3.4-5.0); BUN Creatinine Ratio 20.9 (10-20); C Reactive Protein 5.22 mg/dl (0-0.5); Calcium 8.7 mg/dl (8.6-10.3); Creatinine Clr Calc Pharmacy 34.5 ml/min; Globulin 3.4 gm/dl (2.5-4.0); Potassium 3.5 mmol/L (3.5-5.1)
--- NOTE | 2024-07-09 07:47 | XRay Report ---
EXAM: XR KUB/Abdomen 1 view CLINICAL HISTORY: Eval bowel gas pattern. TECHNIQUE: X-ray images of the abdomen were obtained in Anteroposterior (AP) projection. COMPARISON: CR dated 07/08/2024. FINDINGS: Gas Pattern: Multiple centrally placed mildly dilated small bowel loops were seen. No evidence of extraluminal air. Soft Tissues: Soft tissues of the abdomen appear normal without evidence of masses or calcifications. The liver, spleen, and kidneys are of normal size and position. IMPRESSION: 1. Multiple centrally placed mildly dilated small bowel loops could be obstruction. Suggest clinical correlation. 2. Comparing the previous x-ray dated 07/08/2024 the findings remain stable. Electronically signed by Nish Torres 07-09-2024 07:47 AM
--- NOTE | 2024-07-09 09:24 | Surgery Progress Note ---
Date of Service July 09, 2024 Assessment & Plan (1) Ileus: Plan: We have been consulted for abdominal distention and concern for SBO vs ileus Today labs WBC 16, Hbg 9, Cr 2.3 (1.8) She has no PSH on the abdomen to note. This may be more likely an ileus NGT initially put out >1L but since overnight output has been minimal Per medicine she has had some BMs overnight KUB this AM does reveal stable findings of small bowel distention Abdomen soft, distended Keep NGT in place for now, will follow up later GI on board (2) Cirrhosis: Admission and Anticipated Discharge Date Admission Date: July 05, 2024 Supervising Physician Co-Signing Physician Notes Patient seen and examined, labs image reviewed, agree with above. Significant cirrhosis admitted with hepatic encephalopathy, ileus versus obstruction. She has had several loose bowel movements. She had NG tube placed yesterday due to vomiting and abdominal distention has not had any symptoms since then. She is still distended but this is likely as much her ascites is anything. Abdomen soft, nontender, distended. Patient is jaundiced. WBC 16, anemic, platelet count 68 INR 1.5, creatinine 2.3, ammonia 77, bilirubin 10. KUB personally reviewed and interpreted and agree with assessment of distended small bowel and stomach, appears improved from yesterday. Doubt this represents an obstruction. More likely a reactive ileus. Continue NG tube for now, repeat KUB in the morning. If improved may clamp the NG tube or remove it. If stable or worsen ing, may perform small bowel follow-through or CT scan with oral contrast through the NG tube. Subjective Patient in bed, eyes open but not communicative. No distress Physical Exam Physical Exam: awake, no distress, unable to obtain a subjective history Gastrointestinal (Abdomen): Inspection/Auscultation: + abdomen distended Percussion/Palpation: abdomen soft NGT in place Results & Data Vital Signs (Past 12 Hours) Vital Signs Temp Pulse Pulse Resp BP Pulse Ox O2 Del Method 07/09/24 07:17 108 H 07/09/24 07:02 98.1 F 110 H 17 132/79 93 Room Air 07/09/24 03:53 98.1 F 113 H 19 134/76 95 Room Air 07/09/24 00:26 Room Air 07/09/24 00:17 97.9 F 119 H 18 133/60 91 Room Air 07/08/24 21:48 115 H PG Care Time/CCT Total # of Minutes Spent Total Time Spent with Patient: Total time spent is greater than 50% in coordination of care (as documented) at patient's floor/unit and/or counseling patient: Coding Level of Care Code 88500 SUB INP/OBS CARE 03/16MIN Diagnoses Ileus K56.7 Alcoholic cirrhosis of liver with ascites K74.60; R18.8 Ascites presence: with ascites Hepatic cirrhosis type: unspecified hepatic cirrhosis (2) Cirrhosis Ascites presence: with ascites Hepatic cirrhosis type: unspecified hepatic cirrhosis Qualified Code(s): K74.60 - Unspecified cirrhosis of liver; R18.8 - Other ascites
[2024-07-09 10:07] LABS: INR 1.5 (0.9-1.1); Prothrombin Time 16.1 Seconds (9.0-12.0)
[2024-07-09 10:37] LABS: Basophils # (auto) 0.03 K/uL (0.00-0.20); Basophils % (auto) 0.2 %; Eosinophils # (auto) 0.34 K/uL (0.00-0.50); Immature Granulocytes # (auto) 0.33 K/uL (0.01-0.20); Lymphocytes # (auto) 2.74 K/uL (1.20-3.40); Lymphocytes % (auto) 16.4 %; Monocytes # (auto) 2.09 K/uL (0.11-0.59); Monocytes % (auto) 12.5 %; Neutrophils # (auto) 11.18 K/uL (1.40-6.50); Neutrophils % (auto) 66.9 %
[2024-07-09] MEDS: ALBUMIN 25% 25 GM/100 ML VIAL IV SCH (10:41)
--- NOTE | 2024-07-09 10:51 | Gastroenterology Progress Note ---
Date of Service July 09, 2024 Assessment & Plan (1) Partial small bowel obstruction: Plan: Still some gaseous distention. Clinically less than yesterday. NG drained at least a liter after placement. X-ray continues to show evidence of small bowel obstruction versus ileus. Reassess KUB abdominal series tomorrow. Consider paracentesis if there is significant decompression of the GI tract. We can use her NG for lactulose. (2) Cirrhosis: Plan Patient seems less distended today and is moving her bowels reportedly. - keep NG in place for now. - would hold off on paracentesis for now. Admission and Anticipated Discharge Date Admission Date: July 05, 2024 Supervising Physician Co-Signing Physician Notes See note above, under partial small bowel obstruction note Subjective Patient is more awake today but is not oriented. she is talking today, though is confused. Sitter reports that she has been moving her bowels. NG placed yesterday. ammonia slightly improved at 77 (was 81). KUB 07/09/24 Multiple centrally placed mildly dilated small bowel loops could be obstruction. Suggest clinical correlation. Comparing the previous x-ray dated 07/08/2024 the findings remain stable. Review of Systems Review of Systems: unobtainable. Physical Exam Respiratory: normal respiratory effort, lungs clear to auscultation Cardiovascular: RRR, no murmur, no edema Gastrointestinal (Abdomen): less distended today. soft. nontender. bowel sounds present. Psychiatric: alert, but not oriented. Results & Data Results & Data Vital Signs (Past 12 Hours) Vital Signs Temp Pulse Pulse Resp BP Pulse Ox O2 Del Method 07/09/24 07:17 108 H 07/09/24 07:02 98.1 F 110 H 17 132/79 93 Room Air 07/09/24 03:53 98.1 F 113 H 19 134/76 95 Room Air 07/09/24 00:26 Room Air 07/09/24 00:17 97.9 F 119 H 18 133/60 91 Room Air Coding Level of Care Code 79490 SUB INP/OBS CARE 03/16MIN Diagnoses Partial small bowel obstruction K56.600 Alcoholic cirrhosis of liver with ascites K74.60; R18.8 Ascites presence: with ascites Hepatic cirrhosis type: unspecified hepatic cirrhosis (2) Cirrhosis Ascites presence: with ascites Hepatic cirrhosis type: unspecified hepatic cirrhosis Qualified Code(s): K74.60 - Unspecified cirrhosis of liver; R18.8 - Other ascites
[2024-07-09 11:02] LABS: Echinocytes 1+; Polychromasia 1+; Tear Drop Cells 1+; Toxic Vacuolation 1+
[2024-07-09] MEDS: LACTULOSE SYRUP 30 GM/45 ML UDP NG SCH (16:10)
[2024-07-09 16:26] LABS: Hematocrit (blood only) 26.2 % (37.0-47.0); Hemoglobin 8.1 g/dl (12.0-16.0); Mean Corpuscular Hemoglobin 32.5 pg (25.0-34.0); Mean Corpuscular Hgb Conc 30.9 g/dL (32.0-36.0); Mean Corpuscular Volume 105.2 fL (80.0-100.0); Mean Platelet Volume 9.7 fL (9.4-12.4); Nucleated RBC # (auto) 0.03 K/uL (0.00-0.12); Nucleated RBC % (auto) 0.2 %; Platelet Count 54 K/uL (130-400); RDW Coefficient of Variation 24.9 % (11.5-14.5); RDW Standard Deviation 93.2 fL (36.4-46.3); Red Blood Count 2.49 M/uL (4.20-5.40); White Blood Count 14.29 K/ul (4.8-10.8)
[2024-07-09 16:46] LABS: Albumin Globulin Ratio 1.2 (0.9-2); Albumin Level 3.5 gm/dl (3.4-5.0); Bilirubin,Total 11.5 mg/dl (0.2-1.0); Calcium 9.1 mg/dl (8.6-10.3); Creatinine Clr Calc Pharmacy 32.8 ml/min; Potassium 3.7 mmol/L (3.5-5.1); Total Protein 6.5 gm/dl (6.0-8.3)
[2024-07-09] MEDS: rifAXIMin 550 MG TABLET NG SCH (20:05)
--- NOTE | 2024-07-09 22:38 | Hospitalist Progress Note ---
Date of Service July 09, 2024 Assessment & Plan (1) Cirrhosis: Plan: This is a complicated patient with cirrhosis, ileus, hepatic encephalopathy and also with signs of hepatorenal syndrome. Maddrey score is now over 32. Discussed with GI, recommend holding corticosteroids in the short term. In regards to the Ileus, more below In regards to hepatorenal syndrome: ordered albumin, IVF, holding diuretics, on ocretoide, and will start midodrine. (2) Ileus: Plan: Due to Ileus/ possible small bowel bowel obstruction improved after NG tube, now with bowel movement.\ d/w surgery (3) Acute hepatic encephalopathy: Plan: Acute hepatic encephalopathy in a 38 yo female with cirrhosis. On recheck Patient more awake now with reinitiating lactulose. ammonia levels also downtrending. continue rifaximin and lactulose, given that patient is having multiple BMs will hold lactulose and resume tomorrow at a lower dose. (4) Pneumonia: Plan: Sepsis unknown source. Doubt SBP, possible pneumonia vs UTI. overnight provider expanded to doxy and ertapenem. will maintain for now will continue to monitor. (5) Ascites: Plan: does not appear to be SBP. (6) Anemia: Plan: hemoglbin droped to below 7 ordered 2 units of PRBC. will monitor. ordered octreotide for possible esophageal bleed. Admission and Anticipated Discharge Date Admission Date: July 05, 2024 Subjective Patrient remains a poor historian. Family at bedside and are updated. Physical Exam Constitutional: + ill appearing, + thin, + altered menta l status and + lethargic Eyes: + scleral abnormality (icteric sclera) ENMT: external ear and nose normal, oropharynx normal Neck: trachea midline, no thyromegaly Respiratory: normal respiratory effort, lungs clear to auscultation normal respiratory effort; no respiratory distress Cardiovascular: RRR, no murmur, no edema Rate/Rhythm: regular rhythm and + tachycardic Gastrointestinal (Abdomen): normal bowel sounds, soft, nontender, no hepatosplenomegaly Inspection/Auscultation: + abdomen distended Percussion/Palpation: abdomen soft; abdomen nontender, no guarding and abdomen not rigid Musculoskeletal: no cyanosis or clubbing, extremities motor strength 5/5 Skin: no rashes, warm and dry Neurologic: ankle flexed inwardPatient thouh now following commands, able to move extremities. Psychiatric: Orientation: alert and cooperative Results & Data Results & Data Vital Signs (Past 12 Hours) Vital Signs Temp Pulse Pulse Pulse Resp BP Pulse Ox 07/09/24 20:12 36.3 C L 93 H 20 120/69 93 07/09/24 15:35 104 H 07/09/24 14:47 36.6 C 96 H 17 118/75 94 07/09/24 11:19 36.9 C 110 H 18 124/75 93 O2 Del Method 07/09/24 20:12 Room Air 07/09/24 15:35 07/09/24 14:47 Room Air 07/09/24 11:19 Room Air PG Care Time/CCT Total # of Minutes Spent Total Time Spent with Patient: Total time spent is greater than 50% in coordination of care (as documented) at patient's floor/unit and/or counseling patient: Prolonged Care Time Prolonged Care Time: Yes Total Prolonged Care Time: 150 8:00 to 8:35 10:15 to 10:30 14:15 to 14:55 15:40 to 16:00 16:20 to 16:30 22:30 to 23:00 Coding Level of Care Code 08352 SUB INP/OBS CARE 3/50MIN Diagnoses Alcoholic cirrhosis of liver with ascites K74.60; R18.8 Hepatic cirrhosis type: unspecified hepatic cirrhosis Ascites presence: with ascites Ileus K56.7 Acute hepatic encephalopathy K76.82 Pneumonia J18.9 Laterality: left Lung location: lower lobe of lung Pneumonia type: due to unspecified organism Ascites R18.8 Ascites type: other type Anemia D64.9 Additional Codes Prolonged Care Time - Prolonged Care Time: Yes ([id number]) Time Spent (min) 150 (1) Cirrhosis Hepatic cirrhosis type: unspecified hepatic cirrhosis Ascites presence: with ascites Qualified Code(s): K74.60 - Unspecified cirrhosis of liver; R18.8 - Other ascites (4) Pneumonia Laterality: left Lung location: lower lobe of lung Pneumonia type: due to unspecified organism Qualified Code(s): J18.9 - Pneumonia, unspecified organism (5) Ascites Ascites type: other type Qualified Code(s): R18.8 - Other ascites
[2024-07-09] MEDS: SODIUM CHLORIDE 0.45 % 1,000 ML IV SCH (23:49)
[2024-07-10 06:19] LABS: Basophils # (auto) 0.03 K/uL (0.00-0.20); Basophils % (auto) 0.3 %; Eosinophils # (auto) 0.36 K/uL (0.00-0.50); Eosinophils % (auto) 3.3 %; Hematocrit (blood only) 23.6 % (37.0-47.0); Hemoglobin 7.4 g/dl (12.0-16.0); Immature Granulocytes # (auto) 0.23 K/uL (0.01-0.20); Immature Granulocytes % (auto) 2.1 %; Lymphocytes # (auto) 1.82 K/uL (1.20-3.40); Lymphocytes % (auto) 16.7 %; Mean Corpuscular Hgb Conc 31.4 g/dL (32.0-36.0); Mean Corpuscular Volume 105.4 fL (80.0-100.0); Mean Platelet Volume 9.4 fL (9.4-12.4); Monocytes # (auto) 1.21 K/uL (0.11-0.59); Monocytes % (auto) 11.1 %; Neutrophils # (auto) 7.27 K/uL (1.40-6.50); Neutrophils % (auto) 66.5 %; Platelet Count 57 K/uL (130-400); RDW Coefficient of Variation 24.4 % (11.5-14.5); RDW Standard Deviation 91.6 fL (36.4-46.3); Red Blood Count 2.24 M/uL (4.20-5.40); White Blood Count 10.92 K/ul (4.8-10.8)
[2024-07-10 06:43] LABS: Albumin Globulin Ratio 1.3 (0.9-2); Albumin Level 3.4 gm/dl (3.4-5.0); BUN Creatinine Ratio 24.3 (10-20); Bilirubin,Total 12.9 mg/dl (0.2-1.0); Calcium 9.3 mg/dl (8.6-10.3); Creatinine Clr Calc Pharmacy 36.2 ml/min; Globulin 2.7 gm/dl (2.5-4.0); Potassium 3.4 mmol/L (3.5-5.1); Total Protein 6.1 gm/dl (6.0-8.3)
[2024-07-10 06:44] LABS: Anisocytosis Present; Polychromasia 1+; Target Cells 1+
[2024-07-10 06:47] LABS: INR 1.6 (0.9-1.1); Prothrombin Time 16.8 Seconds (9.0-12.0)
--- NOTE | 2024-07-10 07:49 | Surgery Progress Note ---
Date of Service July 10, 2024 Assessment & Plan (1) Ileus: Plan: pt awake , conversive but difficult to understand at times abd soft , distended, denies tenderness to palpation but reports discomfort at rest no n/v , NGT in but clamped +BMs documented KUB this am taken but not yet read, will follow up on results possible sbft pending kub results Admission and Anticipated Discharge Date Admission Date: July 05, 2024 Supervising Physician Co-Signing Physician Notes Discussed with ALAN, labs and imaging reviewed, agree with above. Continues to have bowel movements but still dilated on KUB. Small bowel follow-through is currently being performed and final results are pending. She still has dilated bowel on these images but it is slowly progressing. Will await results of the small bowel follow-through with a KUB in the morning. If there is evidence of a persistent small bowel obstruction, due to her significant cirrhosis she would not be a good surgical candidate and we would recommend transfer to a tertiary facility if this was necessary. Subjective Pt wake, hard to understand all of speech does report abd discomfort no n/v +BM Review of Systems Gastrointestinal: + abdominal pain and + bloating; no naus ea and no vomiting Physical Exam Eyes: sclerae not anicteric Respiratory: normal respiratory effort and able to speak in complete sentences; no respiratory distress Cardiovascular: Rate/Rhythm: + tachycardic (109) Skin: + jaundice Results & Data Vital Signs (Past 12 Hours) Vital Signs Temp Pulse Resp BP Pulse Ox O2 Del Method 07/10/24 07:04 99.0 F 109 H 17 122/69 92 Room Air 07/10/24 02:22 98.6 F 105 H 17 109/62 93 Room Air 07/09/24 22:44 97.3 F L 101 H 16 114/65 95 Room Air 07/09/24 22:25 Room Air 07/09/24 20:12 97.3 F L 93 H 20 120/69 93 Room Air Results CBC w Diff Results: RBC 2.24 M/uL (4.20-5.40) L 07/10/24 WBC 10.92 K/ul (4.8-10.8) H 07/10/24 Hgb 7.4 g/dl (12.0-16.0) L 07/10/24 Hct 23.6 % (37.0-47.0) L 07/10/24 MCV 105.4 fL (80.0-100.0) H 07/10/24 MCH 33.0 pg (25.0-34.0) 07/10/24 MCHC 31.4 g/dL (32.0-36.0) L 07/10/24 RDW Standard Deviation 91.6 fL (36.4-46.3) H 07/10/24 RDW Coefficient of Variation 24.4 % (11.5-14.5) H 07/10/24 Plt Count 57 K/uL (130-400) L 07/10/24 MPV 9.4 fL (9.4-12.4) 07/10/24 Nucleated Red Blood Cells % (auto) 0.2 % 07/09 Nucleated RBC Absolute Count (auto) 0.03 K/uL (0.00-0.12) 0 07/09/24 Neutrophils (%) (Auto) 66.5 % 07/10/24 Lymphocytes (%) (Auto) 16.7 % 07/10/24 Monocytes # (Auto) 1.21 K/uL (0.11-0.59) H 07/10/24 Eosinophils # (Auto) 0.36 K/uL (0.00-0.50) 07/10/24 Immature Granulocyte % (Auto) 2.1 % 07/10/24 Neutrophils # (Auto) 7.27 K/uL (1.40-6.50) H 07/10/24 Lymphocytes # (Auto) 1.82 K/uL (1.20-3.40) 07/10/24 Monocytes # (Auto) 1.21 K/uL (0.11-0.59) H 07/10/24 Eosinophils # (Auto) 0.36 K/uL (0.00-0.50) 07/10/24 Basophils # (Auto) 0.03 K/uL (0.00-0.20) 07/10/24 Immature Granulocyte # (Auto) 0.23 K/uL (0.01-0.20) H 07/10 Red Blood Cell Morphology Unremarkable 06/27/24 Polychromasia 1+ 07/10/24 Echinocytes 1+ 07/09/24 Anisocytosis Present 07/10/24 Target Cells 1+ 07/10/24 Tear Drop Cells 1+ 07/09/24 Toxic Vacuolation 1+ 07/09/24 PG Care Time/CCT Total # of Minutes Spent Total Time Spent with Patient: Total time spent is greater than 50% in coordination of care (as documented) at patient's floor/unit and/or counseling patient: Coding Level of Care Code 06743 SUB INP/OBS CARE 03/16MIN Diagnoses Ileus K56.7
--- NOTE | 2024-07-10 08:01 | XRay Report ---
EXAM: XR KUB/Abdomen 1 view CLINICAL HISTORY: Eval bowel gas pattern. TECHNIQUE: X-ray image of the abdomen KUB was obtained in Anteroposterior (AP) projection. COMPARISON: CR 07/09/2024 FINDINGS: Gas Pattern: Stable dilated small bowel loops measuring up to 3.7 cm in caliber, suggesting small bowel obstruction. No evidence of extraluminal air. NGT is seen reaching mildly distended stomach. Soft Tissues: Soft tissues of the abdomen appear normal without evidence of masses or calcifications. The liver, spleen, and kidneys are of normal size and position. IMPRESSION: Stable dilated small bowel loops measuring up to 3.7 cm in caliber, suggesting small bowel obstruction. Clinical correlation and CT abdomen are advised Electronically signed by Nish Torres 07-10-2024 08:01 AM
[2024-07-10] MEDS: POTASSIUM CHLORIDE 20 MEQ/15 ML UDC NG STA (08:37)
[2024-07-10] MEDS: MIDODRINE HCL 2.5 MG TAB PO SCH (08:38)
[2024-07-10] MEDS: ALBUMIN 25% 12.5 GM/50 ML VIAL IV SCH (08:39)
[2024-07-10] MEDS: LACTULOSE SYRUP 30 GM/45 ML UDP NG SCH (08:42)
[2024-07-10] MEDS: DEXTROSE 5% 1,000 ML IV SCH (09:11)
--- NOTE | 2024-07-10 10:26 | Gastroenterology Progress Note ---
Date of Service July 10, 2024 Assessment & Plan (1) Cirrhosis: (2) Anemia: (3) Partial small bowel obstruction: Plan - will await the results of SBFT. - no signs of active UGIB, but if concern is there for this, could place NG to suction again and see if this pulls any blood. - will discuss case further with Dr. Mullen, further recommendations to follow. Admission and Anticipated Discharge Date Admission Date: July 05, 2024 Supervising Physician Co-Signing Physician Notes 38-year-old. X-rays continue suggest small bowel obstruction. Patient had a small bowel follow-through today. Luminary read of this does not show obvious fluid in the colon again which could be consistent with small bowel obstruction. Awaiting radiology review. NG currently clamped. Should unclamp to evacuate any contrast from the stomach also we can evaluate for hospitalist concern for bleeding. She has had some drop in her counts though with an elevated BUN though no obvious melena medic easier hematemesis. She remains confused though more alert. In regards to the reported high of [email or web address] discrimination factor. This is predominantly for evaluation of acute alcoholic hepatitis. That would not be accurate in a patient with cirrhosis and decompensated liver disease. I would not recommend prednisolone in this situation. Steroid use carries significant risk of infection gastrointestinal bleeding. Patient remains at significant risk for those. Await surgical input and radiology report and small bowel obstruction, if we consider paracentesis I would have her back up to NG suction for at least 24 hours to decompress the bowel prior to paracentesis. Unfortunate patient has decompensated liver disease. History of recidivism. Poor prognosis Subjective Patient in bed, awake, but not oriented. No bowel movements yet today per nursing. Patient says she is not passing gas, though seems confused. surgery also following and SBFT has been done, results pending. primary team messaged about starting steroids as well as concern for upper GI bleeding given worsening anemia. KUB 07/10: Stable dilated small bowel loops measuring up to 3.7 cm in caliber, suggesting small bowel obstruction. Clinical correlation and CT abdomen are advised. Review of Systems Review of Systems: All systems reviewed & are unremarkable except as noted in HPI & below Physical Exam Constitutional: WD/WN, vitals as above Respiratory: normal respiratory effort, lungs clear to auscultation Cardiovascular: Rate/Rhythm: regular rate and regular rhythm Gastrointestinal (Abdomen): distended abdomen, diffuse tenderness, hypoactive bowel sounds. Psychiatric: Orientation: alert Results & Data Results & Data Vital Signs (Past 12 Hours) Vital Signs Temp Pulse Resp BP Pulse Ox O2 Del Method 07/10/24 07:04 99.0 F 109 H 17 122/69 92 Room Air 07/10/24 02:22 98.6 F 105 H 17 109/62 93 Room Air 07/09/24 22:44 97.3 F L 101 H 16 114/65 95 Room Air 07/09/24 22:25 Room Air Coding Level of Care Code 20967 SUB INP/OBS CARE 2/35MIN Diagnoses Alcoholic cirrhosis of liver with ascites K74.60; R18.8 Ascites presence: with ascites Hepatic cirrhosis type: unspecified hepatic cirrhosis Anemia D64.9 Partial small bowel obstruction K56.600 (1) Cirrhosis Ascites presence: with ascites Hepatic cirrhosis type: unspecified hepatic cirrhosis Qualified Code(s): K74.60 - Unspecified cirrhosis of liver; R18.8 - Other ascites
[2024-07-10 12:42] LABS: BUN Creatinine Ratio 23.7 (10-20); Creatinine Clr Calc Pharmacy 35.3 ml/min; Potassium 3.7 mmol/L (3.5-5.1)
--- NOTE | 2024-07-10 16:03 | Fluoroscopy Report ---
FL small bowel follow through CLINICAL HISTORY: 38 years-old Female with r/o sbo. Small bowel obstruction TECHNIQUE: Oral barium was administered to the patient and serial radiographs of the abdomen were pe rformed. COMPARISON STUDY: CT abdomen and pelvis 07/05/2024 FLUOROSCOPY TIME: 0 minutes. 8 images were obtained FINDINGS: [employer] Professor radiograph of the abdomen demonstrates multiple distended loops of air-filled small bowel scattered throughout the abdomen. No evidence of pneumoperitoneum. Upon the administration of oral barium contrast, there is prompt opacification of the gastric lumen a nd proximal small bowel. Transit to the large bowel occurred did not occur on this exam, concluding at 5 hours and 45 minutes. At end of radiology shift of 4:00 PM the study was concluded. Dilated cont rast-filled loops of small bowel measure up to 5.3 cm. The terminal ileum is not seen. IMPRESSION: Dilated loops of small bowel with contrast not reaching the large bowel by almost 6 hour s. Findings compatible small bowel obstruction. A 6 hour follow-up KUB radiograph (10:00 PM on ) recommended to assess for continued transit of the enteric contrast. ACT 112: Negative or not required by law. The above report was generated using voice recognition software. It may contain grammatical, syntax o r spelling errors. Electronically signed by: Dereck Rodriguez M.D. 07/10/2024 4:02 PM
--- NOTE | 2024-07-10 16:16 | XCELERA ---
[id number]
[2024-07-10 16:55] LABS: Hematocrit (blood only) 24.8 % (37.0-47.0); Hemoglobin 7.8 g/dl (12.0-16.0)
[2024-07-10 17:07] LABS: BUN Creatinine Ratio 24.7 (10-20); Calcium 9.9 mg/dl (8.6-10.3); Creatinine Clr Calc Pharmacy 37.4 ml/min; Potassium 3.6 mmol/L (3.5-5.1)
--- NOTE | 2024-07-10 20:16 | Hospitalist Progress Note ---
Date of Service July 10, 2024 Assessment & Plan (1) Cirrhosis: Plan: This is a complicated patient with cirrhosis, ileus, hepatic encephalopathy and also with signs of hepatorenal syndrome. Maddrey score is now over 32. Discussed with GI, recommend holding corticosteroids as this is decompensated cirrhosis and not acute hepatitis alcoholic. In regards to the Ileus, more below #hepatorenal syndrome: ordered albumin, IVF, holding diuretics, on ocretoide, and midodrine. #hypernatremia: increased IVF to 200ml/hr of D5W (2) Ileus: Plan: Due to Ileus/ possible small bowel bowel obstruction improved after NG tube, now with bowel movement. Small bowel follow through appears to show persistent obstruction d/w surgery (3) Acute hepatic encephalopathy: Plan: Acute hepatic encephalopathy in a 38 yo female with cirrhosis. ammonia levels also downtrending. continue rifaximin and lactulose, may need to hold depending on AM imaging. (4) Pneumonia: Plan: Sepsis unknown source. Doubt SBP, possible pneumonia vs UTI. overnight provider expanded to doxy and ertapenem. will maintain for now will continue to monitor. (5) Ascites: Plan: does not appear to be SBP. (6) Anemia: Plan: hemoglbin stable s/p 2 units of PRBC. will monitor. ordered octreotide for possible esophageal bleed. Admission and Anticipated Discharge Date Admission Date: July 05, 2024 Subjective More awake, more conversant. Physical Exam Constitutional: + ill appearing, + thin, + altered menta l status and + lethargic Eyes: + scleral abnormality (icteric sclera) ENMT: external ear and nose normal, oropharynx normal Neck: trachea midline, no thyromegaly Respiratory: normal respiratory effort, lungs clear to auscultation normal respiratory effort; no respiratory distress Cardiovascular: RRR, no murmur, no edema Rate/Rhythm: regular rhythm and + tachycardic Gastrointestinal (Abdomen): normal bowel sounds, soft, nontender, no hepatosplenomegaly Inspection/Auscultation: + abdomen distended Percussion/Palpation: abdomen soft; abdomen nontender, no guarding and abdomen not rigid Musculoskeletal: no cyanosis or clubbing, extremities motor strength 5/5 Skin: no rashes, warm and dry Psychiatric: Drowsy but Following commands Results & Data Results & Data Vital Signs (Past 12 Hours) Vital Signs Temp Pulse Pulse Resp BP Pulse Ox O2 Del Method 07/10/24 19:55 95 H 18 131/84 94 Room Air 07/10/24 17:56 37.2 C 97 H 17 125/76 94 Room Air 07/10/24 15:00 96 H 07/10/24 12:58 37.0 C 99 H 17 124/82 94 Room Air 07/10/24 09:00 107 H PG Care Time/CCT Total # of Minutes Spent Total Time Spent with Patient: Total time spent is greater than 50% in coordination of care (as documented) at patient's floor/unit and/or counseling patient: Prolonged Care Time Prolonged Care Time: Yes Total Prolonged Care Time: 85 8:00 to 8:30 10:00 to 10:20 !4:10 to 14:20 14:50 tp 15:00 20:00 to 20:15 Coding Level of Care Code 33289 SUB INP/OBS CARE 3/50MIN Diagnoses Alcoholic cirrhosis of liver with ascites K74.60; R18.8 Ascites presence: with ascites Hepatic cirrhosis type: unspecified hepatic cirrhosis Ileus K56.7 Acute hepatic encephalopathy K76.82 Pneumonia J18.9 Laterality: left Lung location: lower lobe of lung Pneumonia type: due to unspecified organism Ascites R18.8 Ascites type: other type Anemia D64.9 Additional Codes Prolonged Care Time - Prolonged Care Time: Yes ([id number]) (1) Cirrhosis Ascites presence: with ascites Hepatic cirrhosis type: unspecified hepatic cirrhosis Qualified Code(s): K74.60 - Unspecified cirrhosis of liver; R18.8 - Other ascites (4) Pneumonia Laterality: left Lung location: lower lobe of lung Pneumonia type: due to unspecified organism Qualified Code(s): J18.9 - Pneumonia, unspecified organism (5) Ascites Ascites type: other type Qualified Code(s): R18.8 - Other ascites
[2024-07-10 21:14] LABS: BUN Creatinine Ratio 25.5 (10-20); Calcium 9.9 mg/dl (8.6-10.3); Creatinine Clr Calc Pharmacy 40.2 ml/min; Potassium 3.5 mmol/L (3.5-5.1)
--- NOTE | 2024-07-11 00:47 | XRay Report ---
Exam(s): XR KUB EXAM: XR Abdomen, 1 View CLINICAL HISTORY: Reason for exam: SBFT F/U. TECHNIQUE: Frontal supine view of the abdomen/pelvis. COMPARISON: Small bowel follow-through performed earlier today. FINDINGS: Gastrointestinal tract: There is contrast remaining throughout a distended stomach and multiple dilated small bowel loops. Bones/joints: Unremarkable. No acute fracture. Other findings: This is a 5 hour film. IMPRESSION: There is contrast remaining throughout a distended stomach and multiple dilated small bowel loops. Little progress since previous. Contrast does not appear to have reached the colon. Electronically signed by: Jessee Meek MD 07/11/24 00:46 AM
[2024-07-11 01:12] LABS: BUN Creatinine Ratio 25.5 (10-20); Calcium 9.7 mg/dl (8.6-10.3); Creatinine Clr Calc Pharmacy 41.9 ml/min; Potassium 3.4 mmol/L (3.5-5.1)
--- NOTE | 2024-07-11 07:27 | Hospitalist Progress Note ---
Date of Service July 10, 2024 Assessment & Plan (1) Cirrhosis: Plan: This is a complicated patient with cirrhosis, ileus, hepatic encephalopathy and also with signs of hepatorenal syndrome. Maddrey score is now over 32. Discussed with GI, recommend holding corticosteroids as this is decompensated cirrhosis and not acute hepatitis alcoholic. In regards to the Ileus, more below #hepatorenal syndrome: ordered albumin, IVF, holding diuretics, on ocretoide, and midodrine. #hypernatremia: increased IVF to 200ml/hr of D5W (2) Ileus: Plan: Due to Ileus/ possible small bowel bowel obstruction improved after NG tube, now with bowel movement. Small bowel follow through appears to show persistent obstruction d/w surgery (3) Acute hepatic encephalopathy: Plan: Acute hepatic encephalopathy in a 38 yo female with cirrhosis. ammonia levels also downtrending. continue rifaximin and lactulose, may need to hold depending on AM imaging. (4) Pneumonia: Plan: Sepsis POA unknown source. Doubt SBP, possible pneumonia vs UTI. overnight provider expanded to doxy and ertapenem. will maintain for now will continue to monitor. (5) Ascites: Plan: does not appear to be SBP. (6) Anemia: Plan: hemoglbin stable s/p 2 units of PRBC. will monitor. ordered octreotide for possible esophageal bleed. Admission and Anticipated Discharge Date Admission Date: July 05, 2024 Results & Data Results & Data Vital Signs (Past 12 Hours) Vital Signs Temp Pulse Pulse Resp BP BP Pulse Ox 07/11/24 06:59 36.5 C 106 H 20 122/78 07/11/24 03:07 36.3 C L 92 H 18 121/78 96 07/10/24 22:54 36.3 C L 97 H 18 116/67 97 07/10/24 21:53 98 H 07/10/24 20:16 36.3 C L 96 H 18 130/84 94 07/10/24 19:55 95 H 18 131/84 94 O2 Del Method O2 Flow Rate 07/11/24 06:59 Oxymask 6 07/11/24 03:07 Room Air 07/10/24 22:54 Room Air 07/10/24 21:53 07/10/24 20:16 Room Air 07/10/24 19:55 Room Air PG Care Time/CCT Total # of Minutes Spent Total Time Spent with Patient: Total time spent is greater than 50% in coordination of care (as documented) at patient's floor/unit and/or counseling patient: Coding Level of Care Code None Diagnoses Alcoholic cirrhosis of liver with ascites K74.60; R18.8 Hepatic cirrhosis type: unspecified hepatic cirrhosis Ascites presence: with ascites Ileus K56.7 Acute hepatic encephalopathy K76.82 Pneumonia J18.9 Laterality: left Lung location: lower lobe of lung Pneumonia type: due to unspecified organism Ascites R18.8 Ascites type: other type Anemia D64.9 (1) Cirrhosis Hepatic cirrhosis type: unspecified hepatic cirrhosis Ascites presence: with ascites Qualified Code(s): K74.60 - Unspecified cirrhosis of liver; R18.8 - Other ascites (4) Pneumonia Laterality: left Lung location: lower lobe of lung Pneumonia type: due to unspecified organism Qualified Code(s): J18.9 - Pneumonia, unspecified organism (5) Ascites Ascites type: other type Qualified Code(s): R18.8 - Other ascites
[2024-07-11 07:49] LABS: Basophils # (auto) 0.03 K/uL (0.00-0.20); Basophils % (auto) 0.3 %; Eosinophils % (auto) 1.7 %; Hematocrit (blood only) 29.5 % (37.0-47.0); Hemoglobin 9.1 g/dl (12.0-16.0); Immature Granulocytes # (auto) 0.29 K/uL (0.01-0.20); Immature Granulocytes % (auto) 2.4 %; Lymphocytes # (auto) 1.69 K/uL (1.20-3.40); Lymphocytes % (auto) 14.1 %; Mean Corpuscular Hemoglobin 32.6 pg (25.0-34.0); Mean Corpuscular Hgb Conc 30.8 g/dL (32.0-36.0); Mean Corpuscular Volume 105.7 fL (80.0-100.0); Monocytes # (auto) 0.73 K/uL (0.11-0.59); Monocytes % (auto) 6.1 %; Neutrophils # (auto) 9.05 K/uL (1.40-6.50); Neutrophils % (auto) 75.4 %; Nucleated RBC # (auto) 0.05 K/uL (0.00-0.12); Nucleated RBC % (auto) 0.4 %; Platelet Count 60 K/uL (130-400); RDW Coefficient of Variation 23.9 % (11.5-14.5); RDW Standard Deviation 91.2 fL (36.4-46.3); Red Blood Count 2.79 M/uL (4.20-5.40); White Blood Count 11.99 K/ul (4.8-10.8)
[2024-07-11] MEDS: FUROSEMIDE INJ 20 MG/2 ML VIAL IV ONE (07:49)
[2024-07-11] MEDS: POTASSIUM CHLORIDE / WTR 10 MEQ/100 ML PLCT IV SCH (07:49)
--- NOTE | 2024-07-11 07:59 | XRay Report ---
EXAM: XR KUB/Abdomen 1 view CLINICAL HISTORY: SBO , s/p SBFT TECHNIQUE: Radiograph of kub/abdomen was acquired. 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 FINDINGS: Small bowel loops are dilated and filled with positive contrast. No significant air fluid levels. No evidence of air under diaphragm. No obvious radio opacity overlying kidneys/ureters/urinary bladder. No obvious organomegaly. Bony shadows appear unremarkable. IMPRESSION: 1. Dilated small bowel loops filled with positive contrast - show mild increase in dilatation. Advise CT abdomen if clinically indicated. Electronically signed by Lamin Hernandez 07-11-2024 07:59 AM
[2024-07-11 08:06] LABS: Macrocytosis Present; Polychromasia 1+; Tear Drop Cells 1+
[2024-07-11 08:12] LABS: Albumin Globulin Ratio 1.2 (0.9-2); Albumin Level 3.8 gm/dl (3.4-5.0); Bilirubin,Total 15.8 mg/dl (0.2-1.0); Calcium 9.8 mg/dl (8.6-10.3); Creatinine Clr Calc Pharmacy 48.7 ml/min; Globulin 3.2 gm/dl (2.5-4.0); Potassium 3.6 mmol/L (3.5-5.1)
--- NOTE | 2024-07-11 08:15 | XRay Report ---
EXAM: XR chest 1V portable CLINICAL HISTORY: hypoxia, r/o pleural effusion TECHNIQUE: Radiograph of chest was acquired. 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 FINDINGS: There is blunting of right costophrenic angle with haziness in right lower zone. Rest of the lungs are clear and well-expanded. The cardiomediastinal silhouette is within normal limits. No acute osseous abnormality. Nasogastric tube is seen in situ. IMPRESSION: 1. Right pleural effusion with underlying collapse or consolidation - new finding. Electronically signed by Lamin Hernandez 07-11-2024 08:14 AM
[2024-07-11 08:24] LABS: INR 1.6 (0.9-1.1); Prothrombin Time 17.1 Seconds (9.0-12.0)
[2024-07-11] MEDS: POTASSIUM CHLORIDE 20 MEQ/15 ML UDC NG STA (08:54)
[2024-07-11] MEDS: LACTULOSE SYRUP 20 GM/30 ML UDC PO SCH (08:58)
[2024-07-11] MEDS ORDERED: LACTULOSE SYRUP 20 GM/30 ML UDC PO SCH (09:00)
[2024-07-11] MEDS: CEFEPIME 2000MG 2,000 MG/20 ML SYR IV SCH (09:13)
[2024-07-11] MEDS: BUMETANIDE 0.5 MG in SYRINGE 0 ML IV ONE (09:22)
[2024-07-11 09:50] LABS: Troponin I High Sensitivity 6.2 pg/ml (0-14)
[2024-07-11] MEDS: CEFEPIME 1000MG 1,000 MG/10 ML SYR IV SCH (09:55)
--- NOTE | 2024-07-11 11:04 | Gastroenterology Progress Note ---
Date of Service July 11, 2024 Assessment & Plan (1) Partial small bowel obstruction: Plan: Evidence of persistent small bowel obstruction. Confirmed on small bowel follow-through. At this point surgery is recommending transfer. Potentially needs a laparoscopic exam. Recommend follow surgical recommendations. (2) Cirrhosis: Plan: This she is not having evidence of gastrointestinal bleeding. She has end-stage liver disease. Potentially aggravated by her current clinical situation and small bowel obstruction. Plan Discussed case with Dr. Mullen. Recommend setting NG back to suction given ongoing imaging suggestive of worsening dilation. Admission and Anticipated Discharge Date Admission Date: July 05, 2024 Subjective patient seems less awake today. abdomen also seems more distended. KUB 07/11 Dilated small bowel loops filled with positive contrast - show mild increase in dilatation. Advise CT abdomen if clinically indicated. SBFT 07/10 Dilated loops of small bowel with contrast not reaching the large bowel by almost 6 hours. Findings compatible small bowel obstruction. A 6 hour follow-up KUB radiograph (10:00 PM on 07/10/2024) recommended to assess for continued transit of the enteric contrast. Physical Exam Gastrointestinal (Abdomen): abdomen distended, hypoactive bowel sounds. Psychiatric: confused. Results & Data Results & Data Vital Signs (Past 12 Hours) Vital Signs Temp Pulse Resp BP BP Pulse Ox O2 Del Method 07/11/24 08:28 42 H 07/11/24 06:59 97.7 F 106 H 20 122/78 Oxymask 07/11/24 03:07 97.3 F L 92 H 18 121/78 96 Room Air O2 Flow Rate 07/11/24 08:28 07/11/24 06:59 6 07/11/24 03:07 Coding Level of Care Code 04818 SUB INP/OBS CARE 03/16MIN Diagnoses Partial small bowel obstruction K56.600 Alcoholic cirrhosis of liver with ascites K74.60; R18.8 Ascites presence: with ascites Hepatic cirrhosis type: unspecified hepatic cirrhosis (2) Cirrhosis Ascites presence: with ascites Hepatic cirrhosis type: unspecified hepatic cirrhosis Qualified Code(s): K74.60 - Unspecified cirrhosis of liver; R18.8 - Other ascites
--- NOTE | 2024-07-11 12:33 | Hospitalist Progress Note ---
Date of Service July 11, 2024 Assessment & Plan (1) Cirrhosis: Plan: This is a complicated patient with cirrhosis, ileus, hepatic encephalopathy and also with signs of hepatorenal syndrome. Maddrey score is now over 32. Discussed with GI, recommend holding corticosteroids as this is decompensated cirrhosis and not acute hepatitis alcoholic. overall plan for 07/11 on 15 liter, confused plan for lasix and thoracentesis. resuming NG tube for sunctioning, IR for paracentesis switching from ceftriaxone to cefepime f/u on MRSA level AMS, increasing lactulose to TID, check sodium level disturbance acute hypoxic respiratory failure on 15 liter, s/p IV lasix giving thoracentesis on 07/11 afternoon ileus; has NG tube with sunctioning plan for paracentesis #hepatorenal syndrome: ordered albumin, IVF, holding diuretics, on ocretoide, and midodrine. #hypernatremia: hold sodium containing fluid may benefit rom dextrose with free water. (2) Ileus: Plan: Due to Ileus/ possible small bowel bowel obstruction improved after NG tube, now with bowel movement. Small bowel follow through appears to show persistent obstruction d/w surgery (3) Acute hepatic encephalopathy: Plan: Acute hepatic encephalopathy in a 38 yo female with cirrhosis. ammonia levels also downtrending. still confused; increasing her lactulose from BID to TID continue rifaximin and lactulose (4) Pneumonia: Plan: Sepsis POA unknown source. Doubt SBP, possible pneumonia vs UTI. overnight provider expanded to doxy and ertapenem. will maintain for now will continue to monitor. (5) Ascites: Plan: does not appear to be SBP. (6) Anemia: Plan: hemoglbin stable s/p 2 units of PRBC. will monitor. ordered octreotide for possible esophageal bleed. Admission and Anticipated Discharge Date Admission Date: July 05, 2024 Subjective abdomen more distended; started her on NG tube with sunctioning in addition, she's was hypoxic on 10-15 liter, started low dose IV diuretics with potassium replacement CXR show volume overload, and pleural effusion, IR consulted for thoracentesis and paracentesis mother updated at bedside, prognosis poor per mother, been off alcohol for one month 35 minutes of critical care time provided unstable oxygen status (15 liter) confusion, worsening abdominal distension Review of Systems Review of Systems: Constitutional: No Weight Change, No Fever, No Chills, No Night Sweats, No Fatigue, No Malaise Cardiovascular: No Chest Pain, No SOB, No PND, No Dyspnea on Exertion, Gastrointestinal: + for abdominal distension; no hematochezia Skin: No Skin Lesions, No Pruritis, No Hair Changes, No Breast/Skin Changes, No Nipple Discharge Neuro: no headache; + for confusion Heme/Lymph: No Bruising, No Bleeding, No Transfusions History, No Lymphadenopathy Endocrine: No Polyuria, No Polydipsia, No Temperature Intolerance Physical Exam Physical Exam: VITALS: Reviewed. WEIGHT/BMI reviewed. GEN: ill appearing HEENT: + for NG tube; AT/NC NECK: Supple, with no masses. CV: RRR, no m/r/g. LUNGS: congested breath sound; on 15 liter. ABD: distended; hypoactive bowel sound; soft to touch; : N/A SKIN: Warm, well perfused. No skin rashes or abnormal lesions. neuro: slow mentation; only oriented to herself and year Results & Data Results & Data Vital Signs (Past 12 Hours) Vital Signs Temp Pulse Resp BP BP Pulse Ox O2 Del Method 07/11/24 11:14 37.3 C 121 H 36 H 130/84 93 Oxymask 07/11/24 08:28 42 H 07/11/24 06:59 36.5 C 106 H 20 122/78 Oxymask 07/11/24 03:07 36.3 C L 92 H 18 121/78 96 Room Air O2 Flow Rate 07/11/24 11:14 4 07/11/24 08:28 07/11/24 06:59 6 07/11/24 03:07 Laboratory Results Laboratory Results - last 72 hr 07/06/24 07/08/24 07/09/24 02:42 15:09 05:33 WBC 16.44 H RBC 2.76 L Hgb 9.0 L Hct 28.2 L MCV 102.2 H MCH 32.6 MCHC 31.9 L RDW Std Deviation 89.8 H RDW Coeff of Jessenia 24.8 H Plt Count 68 L MPV 9.5 Immature Gran % (Auto) 2.0 Neut % (Auto) 66.9 Lymph % (Auto) 16.4 Day % (Auto) 12.5 Eos % (Auto) 2.0 Baso % (Auto) 0.2 Neut # (Auto) 11.18 H Lymph # (Auto) 2.74 Day # (Auto) 2.09 H Eos # (Auto) 0.34 Baso # (Auto) 0.03 Immature Gran # (Auto) 0.33 H Absolute Nucleated RBC 0.02 Nucleated RBC % (auto) 0.1 Toxic Vacuolation 1+ Polychromasia 1+ Anisocytosis Macrocytosis Target Cells Tear Drop Cells 1+ Echinocytes 1+ PT INR Sodium 144 Potassium 3.5 Chloride 112 H Carbon Dioxide 25 Anion Gap 7 BUN 49 H Creatinine 2.34 H D Est Cr Clr Drug Dosing 34.5 eGFR 26.66 BUN/Creatinine Ratio 20.9 H Glucose 111 H Osmolality Lactate 1.9 Calcium 8.7 Total Bilirubin 10.0 H AST 41 H ALT 18 Alkaline Phosphatase 80 Ammonia 81.0 H Troponin I High Sens C-Reactive Protein 5.22 H Total Protein 6.0 Albumin 2.6 L Globulin 3.4 Albumin/Globulin Ratio 0.8 L Procalcitonin 1.03 H Crossmatch See Detail 07/09/24 07/09/24 07/10/24 09:36 16:13 05:56 WBC 14.29 H 10.92 H RBC 2.49 L 2.24 L Hgb 8.1 L 7.4 L Hct 26.2 L 23.6 L MCV 105.2 H 105.4 H MCH 32.5 33.0 MCHC 30.9 L 31.4 L RDW Std Deviation 93.2 H 91.6 H RDW Coeff of Jess[place] 24.9 H 24.4 H Plt Count 54 L 57 L MPV 9.7 9.4 Immature Gran % (Auto) 2.1 Neut % (Auto) 66.5 Lymph % (Auto) 16.7 Day % (Auto) 11.1 Eos % (Auto) 3.3 Baso % (Auto) 0.3 Neut # (Auto) 7.27 H Lymph # (Auto) 1.82 Day # (Auto) 1.21 H Eos # (Auto) 0.36 Baso # (Auto) 0.03 Immature Gran # (Auto) 0.23 H Absolute Nucleated RBC 0.03 Nucleated RBC % (auto) 0.2 Toxic Vacuolation Polychromasia 1+ Anisocytosis Present Macrocytosis Target Cells 1+ Tear Drop Cells Echinocytes PT 16.1 H 16.8 H INR 1.5 H 1.6 H Sodium 145 147 H Potassium 3.7 3.4 L Chloride 113 H 115 H Carbon Dioxide 24 25 Anion Gap 8 7 BUN 54 H 54 H Creatinine 2.46 H 2.22 H Est Cr Clr Drug Dosing 32.8 36.2 eGFR 25.11 28.40 BUN/Creatinine Ratio 22.0 H 24.3 H Glucose 109 H 116 H Osmolality 323 H Lactate Calcium 9.1 9.3 Total Bilirubin 11.5 H 12.9 H AST 45 H 51 H ALT 17 18 Alkaline Phosphatase 68 61 Ammonia 77.0 H 56.0 69.0 Troponin I High Sens C-Reactive Protein Total Protein 6.5 6.1 Albumin 3.5 3.4 Globulin 3.0 2.7 Albumin/Globulin Ratio 1.2 1.3 Procalcitonin Crossmatch 07/10/24 07/10/24 07/10/24 12:01 16:33 20:29 WBC RBC Hgb 7.8 L Hct 24.8 L MCV MCH MCHC RDW Std Deviation RDW Coeff of Jessenia Plt Count MPV Immature Gran % (Auto) Neut % (Auto) Lymph % (Auto) Day % (Auto) Eos % (Auto) Baso % (Auto) Neut # (Auto) Lymph # (Auto) Day # (Auto) Eos # (Auto) Baso # (Auto) Immature Gran # (Auto) Absolute Nucleated RBC Nucleated RBC % (auto) Toxic Vacuolation Polychromasia Anisocytosis Macrocytosis Target Cells Tear Drop Cells Echinocytes PT INR Sodium 149 H 150 H 148 H Potassium 3.7 3.6 3.5 Chloride 115 H 116 H 113 H Carbon Dioxide 26 26 26 Anion Gap 8 8 9 BUN 54 H 53 H 51 H Creatinine 2.28 H 2.15 H 2.00 H Est Cr Clr Drug Dosing 35.3 37.4 40.2 eGFR 27.51 29.51 32.19 BUN/Creatinine Ratio 23.7 H 24.7 H 25.5 H Glucose 144 H 206 H 208 H Osmolality Lactate Calcium 10.0 9.9 9.9 Total Bilirubin AST ALT Alkaline Phosphatase Ammonia Troponin I High Sens C-Reactive Protein Total Protein Albumin Globulin Albumin/Globulin Ratio Procalcitonin Crossmatch 07/11/24 07/11/24 07/11/24 00:25 07:34 09:24 WBC 11.99 H RBC 2.79 L Hgb 9.1 L Hct 29.5 L MCV 105.7 H MCH 32.6 MCHC 30.8 L RDW Std Deviation 91.2 H RDW Coeff of Jess[place] 23.9 H Plt Count 60 L MPV 10.0 Immature Gran % (Auto) 2.4 Neut % (Auto) 75.4 Lymph % (Auto) 14.1 Day % (Auto) 6.1 Eos % (Auto) 1.7 Baso % (Auto) 0.3 Neut # (Auto) 9.05 H Lymph # (Auto) 1.69 Day # (Auto) 0.73 H Eos # (Auto) 0.20 Baso # (Auto) 0.03 Immature Gran # (Auto) 0.29 H Absolute Nucleated RBC 0.05 Nucleated RBC % (auto) 0.4 Toxic Vacuolation Polychromasia 1+ Anisocytosis Macrocytosis Present Target Cells Tear Drop Cells 1+ Echinocytes PT 17.1 H INR 1.6 H Sodium 145 143 Potassium 3.4 L 3.6 Chloride 111 H 109 H Carbon Dioxide 25 26 Anion Gap 9 8 BUN 49 H 47 H Creatinine 1.92 H 1.74 H Est Cr Clr Drug Dosing 41.9 48.7 eGFR 33.81 38.04 BUN/Creatinine Ratio 25.5 H 27.0 H Glucose 230 H 180 H Osmolality Lactate 3.4 H* 3.6 H* Calcium 9.7 9.8 Total Bilirubin 15.8 H AST 81 H ALT 30 Alkaline Phosphatase 66 Ammonia Troponin I High Sens 6.2 C-Reactive Protein Total Protein 7.0 Albumin 3.8 Globulin 3.2 Albumin/Globulin Ratio 1.2 Procalcitonin Crossmatch Current Inpatient Medications Duloxetine HCl (Duloxetine Hcl 20 Mg Cap) 40 mg PO QAM ABISAI Stop: 08/05/24 08:59 Last Admin: 07/11/24 09:15 Dose: Not Given Pantoprazole Sodium (Protonix) 40 mg in 10 mls @ 5 mls/min IV BID ABISAI Stop: 08/05/24 08:59 Last Admin: 07/11/24 09:00 Dose: 5 mls/min Octreotide Acetate 500 mcg/ (Sodium Chloride) 100.5 mls @ 10.05 mls/hr IV .Q10H ABISAI Stop: 08/05/24 10:44 Last Admin: 07/11/24 10:12 Dose: 50 mcg/hr, 10.1 mls/hr Dextrose (D5w) 1,000 mls @ 200 mls/hr IV .Q5H ABISAI Stop: 07/13/24 08:14 Last Admin: 07/11/24 12:17 Dose: 200 mls/hr Cefepime HCl (Maxipime 2000mg) 2,000 mg in 20 mls @ 5 mls/min IV Q12H ABISAI Stop: 07/16/24 08:59 Last Admin: 07/11/24 09:13 Dose: 5 mls/min Lactulose (Lactulose Syrup 20 Gm/30 Ml Udc) 20 gm PO TID ABISAI Stop: 08/10/24 08:59 Last Admin: 07/11/24 08:58 Dose: 20 gm Midodrine (Midodrine Hcl 2.5 Mg Tab) 7.5 mg PO TID@0800,1200,1700 ABISAI Stop: 08/09/24 07:59 Last Admin: 07/11/24 12:16 Dose: 7.5 mg Niacin (Niacin 500 Mg Tab) 250 mg PO DAILY ABISAI Stop: 08/05/24 08:59 Last Admin: 07/11/24 08:58 Dose: 250 mg Ondansetron HCl (Ondansetron Inj 2 Mg/Ml 2 Ml Vial) 4 mg IV Q8H ABISAI Stop: 08/04/24 20:29 Last Admin: 07/11/24 04:30 Dose: 4 mg Pantoprazole Sodium (Pantoprazole 40 Mg Tab) 40 mg PO HS ABISAI Stop: 08/04/24 20:59 Last Admin: 07/05/24 22:14 Dose: Not Given Rifaximin (Rifaximin 550 Mg Tablet) 550 mg NG BID ABISAI Stop: 08/08/24 20:59 Last Admin: 07/11/24 09:00 Dose: 550 mg PG Care Time/CCT Total # of Minutes Spent Total Time Spent with Patient: Total time spent is greater than 50% in coordination of care (as documented) at patient's floor/unit and/or counseling patient: 35 minutes Coding Level of Care Code 67152 SUB INP/OBS CARE 2/35MIN Diagnoses Alcoholic cirrhosis of liver with ascites K74.60; R18.8 Hepatic cirrhosis type: unspecified hepatic cirrhosis Ascites presence: with ascites Ileus K56.7 Acute hepatic encephalopathy K76.82 Pneumonia J18.9 Laterality: left Lung location: lower lobe of lung Pneumonia type: due to unspecified organism Ascites R18.8 Ascites type: other type Anemia D64.9 Time Spent (min) 35 (1) Cirrhosis Hepatic cirrhosis type: unspecified hepatic cirrhosis Ascites presence: with ascites Qualified Code(s): K74.60 - Unspecified cirrhosis of liver; R18.8 - Other ascites (4) Pneumonia Laterality: left Lung location: lower lobe of lung Pneumonia type: due to unspecified organism Qualified Code(s): J18.9 - Pneumonia, unspecified organism (5) Ascites Ascites type: other type Qualified Code(s): R18.8 - Other ascites
--- NOTE | 2024-07-11 12:56 | Surgery Progress Note ---
Date of Service July 11, 2024 Assessment & Plan (1) Partial small bowel obstruction: Plan: Significant acute on chronic hepatic injury with cirrhosis, partial small bowel obstruction versus ileus. Recommend repeat CT scan Patient is not a good candidate for surgery, and given degree of her cirrhosis and hepatic injury, would recommend transfer to a tertiary center if surgical intervention was required (2) Acute hepatic encephalopathy: (3) Cirrhosis: Admission and Anticipated Discharge Date Admission Date: July 05, 2024 Subjective History of cirrhosis, surgery following for SBO versus ileus. Small bowel follow-through yesterday showed very slow progression of contrast and increased dilation on KUB this morning. She is hooked back to suction and 2 L came out. Physical Exam Constitutional: Jaundiced, cachectic, distended abdomen Gastrointestinal (Abdomen): Inspection/Auscultation: + abdomen distended Percussion/Palpation: abdomen soft; abdomen nontender, no guarding and abdomen not rigid Results & Data Vital Signs (Past 12 Hours) Vital Signs Temp Pulse Resp BP BP Pulse Ox O2 Del Method 07/11/24 11:14 37.3 C 121 H 36 H 130/84 93 Oxymask 07/11/24 08:28 42 H 07/11/24 06:59 36.5 C 106 H 20 122/78 Oxymask 07/11/24 03:07 36.3 C L 92 H 18 121/78 96 Room Air O2 Flow Rate 07/11/24 11:14 4 07/11/24 08:28 07/11/24 06:59 6 07/11/24 03:07 Laboratory Results Laboratory Results - last 24 hr 07/10/24 07/10/24 07/11/24 16:33 20:29 00:25 WBC RBC Hgb 7.8 L Hct 24.8 L MCV MCH MCHC RDW Std Deviation RDW Coeff of Jessenia Plt Count MPV Immature Gran % (Auto) Neut % (Auto) Lymph % (Auto) [place] % (Auto) Eos % (Auto) Baso % (Auto) Neut # (Auto) Lymph # (Auto) [place] # (Auto) Eos # (Auto) Baso # (Auto) Immature Gran # (Auto) Absolute Nucleated RBC Nucleated RBC % (auto) Polychromasia Macrocytosis Tear Drop Cells PT INR Sodium 150 H 148 H 145 Potassium 3.6 3.5 3.4 L Chloride 116 H 113 H 111 H Carbon Dioxide 26 26 25 Anion Gap 8 9 9 BUN 53 H 51 H 49 H Creatinine 2.15 H 2.00 H 1.92 H Est Cr Clr Drug Dosing 37.4 40.2 41.9 eGFR 29.51 32.19 33.81 BUN/Creatinine Ratio 24.7 H 25.5 H 25.5 H Glucose 206 H 208 H 230 H Lactate Calcium 9.9 9.9 9.7 Total Bilirubin AST ALT Alkaline Phosphatase Troponin I High Sens Total Protein Albumin Globulin Albumin/Globulin Ratio 07/11/24 07/11/24 07:34 09:24 WBC 11.99 H RBC 2.79 L Hgb 9.1 L Hct 29.5 L MCV 105.7 H MCH 32.6 MCHC 30.8 L RDW Std Deviation 91.2 H RDW Coeff of Jessenia 23.9 H Plt Count 60 L MPV 10.0 Immature Gran % (Auto) 2.4 Neut % (Auto) 75.4 Lymph % (Auto) 14.1 [place] % (Auto) 6.1 Eos % (Auto) 1.7 Baso % (Auto) 0.3 Neut # (Auto) 9.05 H Lymph # (Auto) 1.69 [place] # (Auto) 0.73 H Eos # (Auto) 0.20 Baso # (Auto) 0.03 Immature Gran # (Auto) 0.29 H Absolute Nucleated RBC 0.05 Nucleated RBC % (auto) 0.4 Polychromasia 1+ Macrocytosis Present Tear Drop Cells 1+ PT 17.1 H INR 1.6 H Sodium 143 Potassium 3.6 Chloride 109 H Carbon Dioxide 26 Anion Gap 8 BUN 47 H Creatinine 1.74 H Est Cr Clr Drug Dosing 48.7 eGFR 38.04 BUN/Creatinine Ratio 27.0 H Glucose 180 H Lactate 3.4 H* 3.6 H* Calcium 9.8 Total Bilirubin 15.8 H AST 81 H ALT 30 Alkaline Phosphatase 66 Troponin I High Sens 6.2 Total Protein 7.0 Albumin 3.8 Globulin 3.2 Albumin/Globulin Ratio 1.2 Diagnostic Findings Small bowel follow-through, and KUBs personally viewed and interpreted and agree with the assessment of slow progression of the contrast with the small bowel, increased dilation on today's KUB. Small Bowel X-Ray 07/10/24 08:00 FL small bowel follow through CLINICAL HISTORY: 38 years-old Female with r/o sbo. Small bowel obstruction TECHNIQUE: Oral barium was administered to the patient and serial radiographs of the abdomen were performed. COMPARISON STUDY: CT abdomen and pelvis 07/05/2024 FLUOROSCOPY TIME: 0 minutes. 8 images were obtained FINDINGS: Release Manager radiograph of the abdomen demonstrates multiple distended loops of air-filled small bowel scattered throughout the abdomen. No evidence of pneumoperitoneum. Upon the administration of oral barium contrast, there is prompt opacification of the gastric lumen and proximal small bowel. Transit to the large bowel occurred did not occur on this exam, concluding at 5 hours and 45 minutes. At end of radiology shift of 4:00 PM the study was concluded. Dilated contrast- filled loops of small bowel measure up to 5.3 cm. The terminal ileum is not seen. IMPRESSION: Dilated loops of small bowel with contrast not reaching the large bowel by almost 6 hours. Findings compatible small bowel obstruction. A 6 hour follow-up KUB radiograph (10:00 PM on 07/10/2024) recommended to assess for continued transit of the enteric contrast. ACT 112: Negative or not required by law. The above report was generated using voice recognition software. It may contain grammatical, syntax or spelling errors. Electronically signed by: Dereck Rodriguez M.D. 07/10/2024 4:02 PM KUB X-Ray 07/10/24 22:00 Exam(s): XR KUB EXAM: XR Abdomen, 1 View CLINICAL HISTORY: Reason for exam: SBFT F/U. TECHNIQUE: Frontal supine view of the abdomen/pelvis. COMPARISON: Small bowel follow-through performed earlier today. FINDINGS: Gastrointestinal tract: There is contrast remaining throughout a distended stomach and multiple dilated small bowel loops. Bones/joints: Unremarkable. No acute fracture. Other findings: This is a 5 hour film. IMPRESSION: There is contrast remaining throughout a distended stomach and multiple dilated small bowel loops. Little progress since previous. Contrast does not appear to have reached the colon. Electronically signed by: Jessee Meek MD 07/11/24 00:46 AM KUB X-Ray 07/11/24 06:00 EXAM: XR KUB/Abdomen 1 view CLINICAL HISTORY: SBO , s/p SBFT TECHNIQUE: Radiograph of kub/abdomen was acquired. COMPARISON: CR dated 07/10/2024 05:51:00 WOOD ROUTER HAND. FINDINGS: Small bowel loops are dilated and filled with positive contrast. No significant air fluid levels. No evidence of air under diaphragm. No obvious radio opacity overlying kidneys/ureters/urinary bladder. No obvious organomegaly. Bony shadows appear unremarkable. IMPRESSION: 1. Dilated small bowel loops filled with positive contrast - show mild increase in dilatation. Advise CT abdomen if clinically indicated. Electronically signed by Lamin Hernandez 07-11-2024 07:59 AM Chest X-Ray 07/11/24 07:24 EXAM: XR chest 1V portable CLINICAL HISTORY: hypoxia, r/o pleural effusion TECHNIQUE: Radiograph of chest was acquired. COMPARISON: CR dated 07/05/2024 09:06:25 WOOD ROUTER HAND. FINDINGS: There is blunting of right costophrenic angle with haziness in right lower zone. Rest of the lungs are clear and well-expanded. The cardiomediastinal silhouette is within normal limits. No acute osseous abnormality. Nasogastric tube is seen in situ. IMPRESSION: 1. Right pleural effusion with underlying collapse or consolidation - new finding. Electronically signed by Lamin Hernandez 07-11-2024 08:14 AM PG Care Time/CCT Total # of Minutes Spent Total Time Spent with Patient: Total time spent is greater than 50% in coordination of care (as documented) at patient's floor/unit and/or counseling patient: Coding Level of Care Code 49442 SUB INP/OBS CARE 2/35MIN Diagnoses Partial small bowel obstruction K56.600 Acute hepatic encephalopathy K76.82 Alcoholic cirrhosis of liver with ascites K74.60; R18.8 Hepatic cirrhosis type: unspecified hepatic cirrhosis Ascites presence: with ascites (3) Cirrhosis Hepatic cirrhosis type: unspecified hepatic cirrhosis Ascites presence: with ascites Qualified Code(s): K74.60 - Unspecified cirrhosis of liver; R18.8 - O ther ascites
--- NOTE | 2024-07-11 15:17 | Ultrasound Report ---
ULTRASOUND-GUIDED PARACENTESIS CLINICAL HISTORY: Ascites PROCEDURE: Procedure and risks were explained. Informed consent was obtained. A final timeout was com pleted. The abdomen was prepped and draped in sterile fashion. 1% lidocaine was utilized for skin ane sthesia. Utilizing ultrasound guidance, a 5 Turkish safety centesis catheter was advanced into the left lower q uadrant pocket of ascites. Ultrasound images were obtained. 4.1 L of ascites fluid was removed, with 1 L sent to the lab for analysis. The catheter was removed and Band-Aid applied. The patient tolerate d the procedure well. Vital signs will be monitored postprocedure. IMPRESSION: Ultrasound-guided paracentesis as above. Performed, dictated, and signed by Rj Aguero PA-C; to be co-signed by Dr. Bo Gabriel. Electronically signed by: Bo Gabriel M.D. 07/11/2024 3:33 PM
--- NOTE | 2024-07-11 15:21 | Ultrasound Report ---
Limited right chest ultrasound INDICATION: Thoracentesis request FINDINGS: Ultrasound imaging of the right posterior thorax was performed. There appears to be consoli dated lung at the right lower lobe without significant pleural fluid. No thoracentesis was performed. The referring physician was notified. IMPRESSION: Consolidated right lung without significant pleural effusion as above. No thoracentesis was performed . Performed, dictated, and signed by Rj Aguero PA-C; to be co-signed by Dr. Bo Gabriel. Electronically signed by: Bo Gabriel M.D. 07/11/2024 3:33 PM
[2024-07-11] MEDS: ALBUMIN 25% 12.5 GM/50 ML VIAL IV ONE (15:25)
[2024-07-11 15:40] LABS: BUN Creatinine Ratio 23.2 (10-20); Calcium 9.5 mg/dl (8.6-10.3); Potassium 3.9 mmol/L (3.5-5.1)
[2024-07-11 15:48] LABS: White Blood Count 19.35 K/ul (4.8-10.8)
[2024-07-11 15:57] LABS: INR 1.8 (0.9-1.1); Prothrombin Time 18.2 Seconds (9.0-12.0)
[2024-07-11 16:48] LABS: Neutrophils # (auto) 15.37 K/uL (1.40-6.50)
--- NOTE | 2024-07-11 16:57 | Discharge Summary ---
Discharge Summary Date of Service July 11, 2024 Principal Dx & Hospital Course #1 = Principal Diagnosis (1) Cirrhosis: This is a complicated patient with cirrhosis, ileus, hepatic encephalopathy and also with signs of hepatorenal syndrome. Maddrey score is now over 32. Discussed with GI, recommend holding corticosteroids as this is decompensated cirrhosis and not acute hepatitis alcoholic. seen by surgery for SBO versus ileus; on 07/11, started on NG tube sunction. surgery team recommending transferring to referral center for surgery and hepatology evaluation overall plan for 07/11 on 15 liter, confused plan for lasix and thoracentesis. resuming NG tube for sunctioning, IR for paracentesis switching from ceftriaxone to cefepime f/u on MRSA level AMS, increasing lactulose to TID, check sodium level disturbance acute hypoxic respiratory failure on 15 liter, s/p IV lasix switch from ceftriaxone to cefepime aspiration component of aspiration f/u o CT chest wo contrast (done on 07/11) deposition, transferring to [facility] lactic acidosis. downtrending from 3.3--> 2.7 hepatic encephalopathy she's is confused and disoriented slow mentation c/w rifixamine may need rectal lactulose rather than oral lactulose given her bowel obstruction ileus; has NG tube with sunctioning s/p paracentesis on 07/11 and 4.1 liter removed. KUB found small bowel distension she's was restarted on NG tube for sunctioning we order a repeat Ct abdomen hypokalemia #hepatorenal syndrome: ordered albumin, IVF, holding diuretics, on ocretoide, and midodrine. her aldactone was held, bladder scan to r/o retention #hypernatremia: hold sodium containing fluid may benefit rom dextrose with free water. her sodium on 07/11 improved from 148--> 140 hepatic encephalopathy (2) Ileus: Due to Ileus/ possible small bowel bowel obstruction improved after NG tube, now with bowel movement. Small bowel follow through appears to show persistent obstruction surgery recommend transferring to [facility] for GI and surgical evaluation d/w surgery (3) Acute hepatic encephalopathy: Acute hepatic encephalopathy in a 38 yo female with cirrhosis. ammonia levels also downtrending. still confused; increasing her lactulose from BID to TID given her SBO, switching her to rectal lactulose continue rifaximin and lactulose (4) Pneumonia: Sepsis POA unknown source. Doubt SBP, possible pneumonia vs UTI. has lactic acidosis, switching her to cefepime overnight provider expanded to doxy and ertapenem. will maintain for now will continue to monitor. (5) Ascites: does not appear to be SBP. s/p paracentesis on 07/11 with 4 liter remove f/u on ascite fluid. (6) Anemia: hemoglbin stable s/p 2 units of PRBC. will monitor. ordered octreotide for possible esophageal bleed. Notes For Next Care Provider she's need surgery; GI and hepatology eval repeat creatinine and LFT. I will avoid oral lactulose and give her rectal lactulose given her SBO repeat ammonia, creatinine function off alcohol for 4-6 weeks. Medication Changes From Visit holding aldactone and lasix given DAJUAN need hepatology input about whether cymbalta is compatible with her liver dysfunction Admission HPI Per Admitting Provider 38 yo female patient with past medical history of alcohol abuse, cirrhosis with ascites, hepatic encephalopathy, hemorrhoid bleeding. who present to the ED with father for worsening altered mental status. Patient has been home for the past couple of days and has presented with slow speech and generalized weakness. Patient is a poor historian as she falls back to sleep during interrogation. Father is at bedside and helps provide history. Also obtain information from Dr. Clements. Father reports patient has had intermittent hematochezia for the past 6 months. on last admission, she presented with ascites and s/p paracentesis x2 and was on IV diuretics. Hospital course Lenora Ortega is a 38 yo woman with PMH of alcohol use disorder, ascites, hematochezia, she's was hospitalized at [facility] from 06/07--06/10 for ascites, hematochezia she's s/p paracentesis x2. and then has colonoscpy which found 2 polyps (15-20mm) in the descending colon and internal hemorrhoid. recommended repeating colonoscopy in 3 years. She's make promise that she will make appointment to see hepatology immediately upon discharge. on 07/05/2024. she's presented to ED with AMS, slurred speech and found to has hyponatremia with sodium of 123 (her outpatient value on 06/27 is 121; and her prevoius sodium was 125) and her CT abdomen concern for dilated small bowel within central abdomen and with decompression loop also found thickening and nodularity of the peritoneal reflection and pneumonia her temp was 37.7 and she was tachycardia with HR in the 125. her family noted she's has bilious vomiting and she was started on NG tube. patient never has abdominal operation and surgery team suspect this is likely ileus related versus underlying SBO. however, she still has significant confusion and disoriented. and ammonia was elevated at 123 (on 07/06) and started on lactulose. there was concerned about hepatorenal syndrome with her creatinine increasing from 1.47 (on 07/05)---> 2.46 (07/09), her baseline in 06/27/2024 (.76, BUN of 7), she was on albumin, ocretotide. and IV fluid, her creatinine downtrend from 2.46 (07/09)---> 1.74 (07/11), she's was on ceftriaxone for aspiration pneumonia on 07/11/2024, she's has worsening hypoxic on 10 liter lactic acidosis of 3.6, WBC increased from 10.92 (07/10) to 19.35 (07/11) , chest X-ray show right side pleural effusion, eval by IR on 07/11 not enough fluid for thoracentesis and we switch her from ceftriaxone to cefepime her lactic acid downtrend from 3.6--> 2.7 her repeat KUB found worsening dilatation and surgery team ordere a repeat CT abdomen given her ongoing ileus/SBO, surgery team recommended transferring to tertiary care center. in addition, she' continue to has disorientation. she was on 3 liter oxymask on 07/11 5pm, she's was accepted to [facility] ICU for ongoing care she will need evaluation by nephrology for her acute kidney injury and evaluation by hepatology for her acute liver failure. we discussed that she's has poor prognosis but her father and mother is agreeable for hepatology and 2nd opinion evaluation at [facility] Discharge Exam VITALS: Reviewed. WEIGHT/BMI reviewed. GEN: ill appearing Neuro: slow mentatiion; oriented to herself, place. cannot follow complex command HEENT: + for NG tube; AT/NC NECK: Supple, with no masses. CV: RRR, no m/r/g. LUNGS: congested breath sound; on 15 liter. ABD: distended; hypoactive bowel sound; soft to touch; : N/A SKIN: Warm, well perfused. No skin rashes or abnormal lesions. Discharge Plan Discharge Items Patient Disposition: Transfer Acute Care Hospital Reason For Visit: AMS IN CIRRHOSIS Discharge Diagnosis: small bowel obstruction, acute respiratory failure, aspiration pneumonia, DAJUAN, hepatic encephalopathy Condition on Discharge: Serious Activity: Per Instructions section Lifting: Wait until after follow-up appointment Non-emergency contact: Primary Care Provider and Plant Science Professor Call non-emergency contact if: your symptoms worsen, your pain is unusual for you, your rectal temperature is above 100.4 and your wound has increased drainage Follow-up/Referrals: Lucía Yin PA-C [Primary Care Provider] - Diet: Nothing by Mouth Addtl Attending Provider Instructions: follow up with hepatology (liver specialist) continue to monitor kidney functio (creatinine) and liver function trend sodium, avoid over-correction nephrology evaluation Pending Studies at Discharge: Yes Studies:: repeat total bilirubin, LFT, INR, creatinine, repeat urine analysis Stand-Alone Forms: My [facility] Skilled Items Patient informed of condition?: Yes DNR: No Discharge Level of Care: Other Communicable Disease: No Discharge Prognosis: Deteriorating Lines: Peripheral IV Urinary Catheter: Yes Medications and DC Order Prescriptions: Continued duloxetine 40 mg capsule,delayed release(DR/EC) 40 mg PO QAM niacin 250 mg tablet 250 mg PO DAILY Rx Instructions: Unable to verify OTC meds at this date/time. cyanocobalamin (vitamin B-12) 1,000 mcg/mL kit 1,000 mcg IM MONTHLY Rx Instructions: Unable to verify OTC meds at this date/time. DHA 200 mg capsule 200 mg PO DAILY Patient Comments: takes occasionally pantoprazole [Protonix] 40 mg tablet,delayed release (DR/EC) 40 mg PO HS Xifaxan 550 mg tablet 550 mg PO BID 30 Days Qty: 60 0RF Rx Instructions: Per pharmacy, pt hasn't picked up this medication but script is active with refills. Unable to verify if pt may be getting samples. folic acid 1 mg tablet 1 mg PO DAILY Held lactulose 10 gram/15 mL solution 10 g PO DAILY 30 Days Qty: 3785 0RF Hold Instructions: Resume on 07/18/24. need clearance by surgery Rx Instructions: one week after you banding your hemorrhoid, take lactulose 2-3 times a day. Discontinued furosemide [Lasix] 20 mg Tablet 10 - 20 mg PO DAILY PRN (Reason: Swelling) spironolactone [Aldactone] 25 mg tablet 25 mg PO DAILY Qty: 30 0RF Rx Instructions: hold for blood pressure lower than 100 Discharge Orders: Discharge Order (Routine); Ordered 07/11/24 Ordered By: Alice Turner/Other Patient Handouts: Acute Liver Failure, Small Bowel Obstruction, Hepatic Encephalopathy Admission Data Admit Date/Time: 07/05/24 13:17 Attending Provider: Alice Figueroa Admit Provider: Vj Degroot Primary Care Provider: Lucía Yin Other Providers: Manny Bolton; Burak Quezada; Dede Mehta; Stnaley Jimenez; Sergio Saleem; Julia Brennan; Radha Rachel; Selvin Wilder Jr; Belgica Quinonez; Rj Brito; Symone Matias; Vj Degroot; Russ Riggs Jr Hospital Stay Data Consultations 07/05/24 11:25 Consult General Surgery Routine 07/05/24 14:55 ED Decision to Admit Stat 07/06/24 09:22 Consult Gastroenterology Routine Diagnostic Imagining Performed 07/05/24 10:49 CT abd pelvis wo con Stat CT head/brain wo con Stat 07/07/24 08:03 US duplex portal hepatic veins Urgent 07/10/24 08:00 FL small bowel follow through Routine 07/11/24 10:17 IR paracentesis abd w/img US Stat US effusion-chest/mediastinum Stat 07/11/24 13:19 CT abd pelvis wo con Urgent 07/11/24 16:18 CT chest diagnostic wo con Stat Pending Results Patient Have Any Pending Studies at Discharge: Yes Discharge Instructions Given to Patient (Per Discharging Provider) follow up with hepatology (liver specialist) continue to monitor kidney functio (creatinine) and liver function trend sodium, avoid over-correction nephrology evaluation Supervising Physician Co-Signing Physician Notes Discussed with ALAN, labs and imaging reviewed, agree with above. Continues to have bowel movements but still dilated on KUB. Small bowel follow-through is currently being performed and final results are pending. She still has dilated bowel on these images but it is slowly progressing. Will await results of the small bowel follow-through with a KUB in the morning. If there is evidence of a persistent small bowel obstruction, due to her significant cirrhosis she would not be a good surgical candidate and we would recommend transfer to a tertiary facility if this was necessary. Total Time Total Time Spent Total Time Spent (In Minutes): 55 minutes Coding Level of Care Code 23207 INP/OBS DISCH >30 MIN Diagnoses Alcoholic cirrhosis of liver with ascites K74.60; R18.8 Hepatic cirrhosis type: unspecified hepatic cirrhosis Ascites presence: with ascites Ileus K56.7 Acute hepatic encephalopathy K76.82 Pneumonia J18.9 Laterality: left Lung location: lower lobe of lung Pneumonia type: due to unspecified organism Ascites R18.8 Ascites type: other type Anemia D64.9
--- NOTE | 2024-07-11 17:09 | CT Scan Report ---
Clinical history: Respiratory failure Technique: Axial computed tomography images were obtained of the chest without intravenous contrast Findings: There is extensive alveolar consolidation in the right lower lobe. There is less severe alveolar consolidation in the left lower lobe and right upper lobe. There is no pleural effusion or pneumothorax. There is no sign of pulmonary fibrosis or other diffuse interstitial process. No endobronchial lesion is seen There is no mediastinal, hilar, or axillary adenopathy. The thoracic aorta is of normal caliber. There is no pericardial effusion No fracture is seen. No focal osseous lesion is evident Impression: Bilateral pneumonia ACT 112: Positive. There are findings on this exam that require communication between the performing entity and the patient following Patient Test Result Information Act ([place] ACT 112) guidelines. Electronically signed by Herb Hancock 07-11-2024 5:08 PM
--- NOTE | 2024-07-11 17:16 | CT Scan Report ---
Clinical History: Follow-up of small bowel obstruction Technique: Axial computed tomography images were obtained of the abdomen and pelvis without intravenous contrast. Oral contrast was given Comparison is made to the prior CT dated 07/05/2024 Findings: Again seen is diffuse nodularity of the liver surface, consistent with cirrhosis. The previously seen heterogeneity of the liver with numerous possible masses is not as evident. Liver masses are not well evaluated for this noncontrast study. Abdominal varices are again seen. The gallbladder appears unremarkable. No bile duct dilatation is noted. The spleen is enlarged measuring 15.6 cm. No focal splenic lesion is evident. The pancreas appears normal with no sign of acute or chronic pancreatitis and no mass lesion noted. The pancreatic duct is of normal caliber. The adrenal glands appear unremarkable. There is excreted contrast within the renal collecting systems bilaterally. There is no hydronephrosis or perinephric stranding. No definite renal mass lesion is identified. The aorta is of normal caliber. No abdominal adenopathy is seen. The stomach appears normal. There is no definite current sign of small bowel obstruction. There is diffuse bowel dilatation that may be due to ileus. Oral contrast has traversed the small bowel to enter the colon. No free intraperitoneal air is identified. There is a small amount of ascites There is excreted contrast within the urinary bladder. The bladder is decompressed, containing a Guidry catheter. The iliac arteries are of normal caliber. No pelvic adenopathy is noted. No fracture is identified. No focal osseous lesion is seen Impression: 1. Diffuse bowel dilatation that is likely due to ileus, though a partial small bowel obstruction at the level of the distal ileum cannot be excluded. Oral contrast has extended throughout the small bowel to enter the colon, excluding complete obstruction 2. Small amount of ascites 3. Cirrhosis and portal hypertension 4. Splenomegaly ACT 112: Positive. There are findings on this exam that require communication between the performing entity and the patient following Patient Test Result Information Act ([place] ACT 112) guidelines. Electronically signed by Herb Hancock 07-11-2024 5:16 PM
[2024-07-11 17:18] LABS: Albumin Peritoneal Fluid < 1.5 gm/dl; Amylase Peritoneal Fluid < 10 U/L; Glucose Peritoneal Fluid 139 mg/dl; Total Protein Peritoneal Fluid < 3.0 gm/dl
[2024-07-11 17:32] LABS: Appearance Peritoneal Fluid Clear; Color Peritoneal Fluid Straw; RBC Peritoneal Fluid Auto < 2000 /uL; WBC Peritoneal Fluid Auto 86 /ul (0-300)
[2024-07-11 21:24] VITALS: BP 114/61; PULSE 106; RESP 20; TEMP 98.1; O2SAT 97
[2024-07-12 07:39] LABS: Lymphocytes, Fluid 20 %; Mono,Macrophage,Mesothelial 48 %; Neutrophils, Fluid 32 %
== END 2024-07-11 22:20 | disposition short-term general hospital (02) | DRG 871 ==
LOC: ED 09:40 → SUATTDRO 13:17 → 2E 13:17